=== PATIENT | female | born 1940 | race Caucasian/White ===

== ENCOUNTER 2020-07-22 20:23 | Inpatient (IN) | payer MEDICARE, OTHER, SELFPAY ==
--- NOTE | ~2020-07-22 | XR_ITS ---
EXAMINATION: XR ABDOMEN KUB CLINICAL INDICATION: Rule out abdominal obstruction. COMPARISON: 07/26/2020 KUB. TECHNIQUE: AP view of the abdomen. FINDINGS: There is a nonobstructive bowel gas pattern. Mild to moderate stool seen within the colon distally to the rectum. Mild multilevel degenerative changes are seen in the thoracolumbar spine. No abnormal calcifications are seen. Surgical clips overlie the right upper quadrant. XR/XR KUB IMPRESSION: 1. Nonobstructive bowel gas pattern. 2. Mild to moderate colonic stool burden appears mildly decreased.
--- NOTE | ~2020-07-22 | XR_ITS ---
EXAMINATION: XR ABDOMEN KUB CLINICAL INDICATION: Abdominal distention. COMPARISON: None TECHNIQUE: AP view of the abdomen. FINDINGS: Bowel gas pattern is nonobstructive. Moderate amount of stool throughout the colon. Surgical clips in the right upper quadrant. XR/XR KUB IMPRESSION: Moderate stool burden. No obstruction.
[2020-07-22 20:56] VITALS: BMI 56.6
[2020-07-22 23:14] LABS: Glucose, Whole Blood 261 mg/dL (60-115)
--- NOTE | 2020-07-22 23:32 | PC.NURSE ---
PT not given Humalog due to PT not eating. POC 261.
[2020-07-23] MEDS: Insulin Glargine,Hum.rec.anlog 100 UNIT/ML 10 ML VIAL 14 UNIT SUBCUT (00:11)
[2020-07-23] MEDS: Insulin Lispro 100 UNIT/ML 3 ML VIAL SUBCUT ×2 (00:21→17:02)
[2020-07-23] MEDS: clonazePAM 0.5 MG TABLET PO ×4 (00:22→23:23)
[2020-07-23] MEDS: oxyCODONE HCl Immed Release 15 MG TABLET PO ×5 (00:48→19:59)
--- NOTE | 2020-07-23 03:33 | PC.ADMIT ---
80 year old female, admitted to Unit for first time, from [facility] presenting with anxiety. Nurse to nurse done prior to PT arrival. Medication reconciliation done with [facility] pharmacy. Legal status conditional voluntary. PT oriented to staff and unit. PT on 15 minute checks, POC QID, VS BID. PT denies SI and HI. PT poor appetite, medication compliant, presenting as anxious and nervous. BS 261 coverage given as ordered.
[2020-07-23 09:07] VITALS: BP 175/79; PULSE 73
[2020-07-23] MEDS: atenoloL 50 MG TABLET PO (09:07)
[2020-07-23] MEDS: glipiZIDE 10 MG TABLET PO (09:13)
[2020-07-23 09:20] LABS: Glucose, Whole Blood 133 mg/dL (60-115)
[2020-07-23 09:37] VITALS: BP 175/79; PULSE 73; TEMP 36.3; O2SAT 97
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
[2020-07-23 16:51] LABS: Glucose, Whole Blood 205 mg/dL (60-115)
[2020-07-23 17:53] VITALS: BP 136/56; PULSE 64; RESP 12; TEMP 36.9; O2SAT 96
[2020-07-23] MEDS: glipiZIDE 5 MG TABLET PO (18:01)
[2020-07-23] MEDS: Mirtazapine 7.5 MG TABLET 3.75 MG PO (20:00)
[2020-07-23 20:57] LABS: Glucose, Whole Blood 101 mg/dL (60-115)
[2020-07-24] MEDS: glipiZIDE 10 MG TABLET PO (06:20)
[2020-07-24] MEDS: oxyCODONE HCl Immed Release 15 MG TABLET PO ×4 (06:28→20:11)
[2020-07-24 07:10] LABS: Glucose, Whole Blood 166 mg/dL (60-115)
[2020-07-24 08:37] VITALS: BP 156/68; PULSE 72
[2020-07-24] MEDS: atenoloL 50 MG TABLET PO (08:37)
[2020-07-24 09:19] VITALS: BP 156/68; PULSE 72; TEMP 36.4; O2SAT 96
[2020-07-24] MEDS: clonazePAM 0.5 MG TABLET PO ×3 (09:54→22:50)
[2020-07-24 11:38] LABS: Glucose, Whole Blood 196 mg/dL (60-115)
--- NOTE | 2020-07-24 14:37 | HO.PSYCHPN ---
Subjective Subjective Date of Service: 07/24/20 Reason For Visit: Depression and anxiety Interim History: Does endorse feeling anxious and depressed, but much less compared to upon admission. Discussed at length medications and hopeful that Remeron will be helpful. She did endorse having a headache nausea and increased appetite with just 1 dose. Emphasized continuing to perseverate with medication to have enough time to review effectiveness and/or any side effects on a consistent basis. She was agreeable to this. Also discussed at length her controlled substance medications. She reports not wanting to be on these, but that her body is dependent on them having been on benzodiazepine for over 40 years and understands that she may need to have them and not come off them completely. Also discussed non medication strategies to help manage anxiety she is looking forward to engaging with primary treatment team, groups and also aftercare planning Medication Compliance: Yes Review of Systems Review of Systems Complaining of constipation, otherwise unremarkable Mental Status Exam Mental Status Exam Narrative: In night clothing. Fair self-care. Pleasant. Depressed and anxious. Not agitated. Some helplessness. No SI or HI. No psychosis. Insight and judgment fair Diagnostics Vital Signs (24Hr): Vital Signs - 24 hr 07/23/20 17:53 07/24/20 08:37 07/24/20 09:19 Temperature 98.4 F 97.5 F Pulse Rate 64 72 72 Respiratory Rate 12 Blood Pressure 136/56 L 156/68 H 156/68 H Pulse Oximetry 96 96 Body Mass Index 56.6 Labs Labs: Laboratory Results - last 48 hr 07/22/20 07/23/20 07/23/20 23:09 09:02 16:44 POC Glucose 261 H 133 H 205 H 07/23/20 07/24/20 07/24/20 20:54 06:23 11:29 POC Glucose 101 166 H 196 H Medications Medications Current Medications Generic Name Dose Route Start Last Admin Trade Name Freq PRN Reason Stop Dose Admin Acetaminophen 650 mg 07/22/20 23:50 Acetaminophen 325 Mg Tablet PO Q6H PRN Headache/Pain Mild Scale (1-3) Al Hydroxide/Mg Hydroxide 30 ml 07/22/20 23:50 Magnesium Hydrox/Alum Hydrox 30 Ml Oral.Susp PO Q6H PRN Heartburn/Nausea Atenolol 50 mg 07/23/20 09:00 07/24/20 08:37 Atenolol 50 Mg Tablet PO 50 mg DAILY [facility] Administration Protocol Clonazepam 0.5 mg 07/23/20 14:43 07/24/20 09:54 Clonazepam 0.5 Mg Tablet PO 0.5 mg TID PRN Administration Anxiety Glipizide 10 mg 07/23/20 07:30 07/24/20 06:20 Glipizide 10 Mg Tablet PO 10 mg DAILY@0730 [facility] Administration Glipizide 5 mg 07/23/20 17:00 07/23/20 18:01 Glipizide 5 Mg Tablet PO 5 mg DAILY@1700 [facility] Administration Insulin Glargine 14 unit 07/23/20 21:00 07/23/20 22:03 Insulin Glargine,Hum.Rec.Anlog 100 Unit/Ml 10 Ml Vial SUBCUT Not Given BEDTIME [facility] Magnesium Hydroxide 30 ml 07/22/20 23:50 Milk Of Magnesia 30 Ml Oral.Susp PO DAILY PRN Constipation Mirtazapine 3.75 mg 07/23/20 21:00 07/23/20 20:00 Mirtazapine 7.5 Mg Tablet PO 3.75 mg BEDTIME [facility] Administration Non-Formulary Medication 8 mcg 07/23/20 09:00 Lubiprostone [Amitiza] PO BID [facility] Ondansetron HCl 4 mg 07/23/20 16:51 07/23/20 17:29 Ondansetron Odt 4 Mg Tab.Rapdis TRANSLINGU 4 mg Q12H PRN Administration Nausea Oxycodone HCl 15 mg 07/23/20 08:00 07/24/20 11:08 Oxycodone Hcl Immed Release 15 Mg Tablet PO 15 mg Q4H [facility] Administration Polyethylene Glycol 17 gm 07/24/20 10:31 Polyethylene Glycol 3350 17 Gm Powd.Pack PO DAILY PRN Constipation Trazodone HCl 50 mg 07/22/20 23:50 Trazodone Hcl 50 Mg Tablet PO BEDTIME PRN Insomnia Allergies Allergies Allergy/AdvReac Type Severity Reaction Status Date / Time Penicillins Allergy Mild RASH Unverified 10/29/19 17:20 Sulfa (Sulfonamide Allergy Unknown UNKNOWN Unverified 10/29/19 17:20 Antibiotics) Assessment & Plan Assessment & Plan (1) Major depress dis, severe: Status: Acute Code(s): F32.2 - Major depressive disorder, single episode, severe without psychotic features (2) Anxiety disorder: Status: Acute Code(s): F41.9 - Anxiety disorder, unspecified Assessment and Plan: 07/23/20: Discussed adding low-dose Remeron 3.75 mg at bedtime- very reluctant around same, but willing to try this on an inpatient setting. Also discussed potential for consideration of ECT in the future- Patient extremely fearful around same. Will use Klonopin 0.5 mg 3 times per day- consistent with [facility] and recent use. Discussed importance of working with primary team in the hospital setting, family and community treatment providers to ensure consistent treatment planning at side of the hospital after discharge. Ideally it would be great to get hold records from treatment within the [place] system, however this is extremely unlikely that these medication trials were well over 10 years ago as per patient 07/24/20: No significant changes and continue with treatment plan on 07/23/2020. Did enter hospitalist consult as H and P still needed as direct admission Greater than 50% of the session was spent on counseling and/or coordination of care Reason for contiued inpatient stay Substantial Risk for: inability to function and rapid decompensation
--- NOTE | 2020-07-24 15:14 | P.CONIM_ITS ---
History of Present Illness Data of Consult Service Date: 07/24/20 Primary Care Provider: Unknown Physician HPI Reason for consult: Diabetes 80-year-old female admitted to inpatient psychiatry for severe depression. Patient has history of diabetes is treated with long-acting insulin and glimepiride at home with good control. Also has hypertension treated with atenolol. Patient has no active medical complaints. She is noted to have bilateral lower extremity edema. She is being treated for venous insufficiency at [facility]. Review of Systems Cardiovascular: Cardiovascular: Reports no additional cardiovascular complaints Respiratory: Respiratory: Reports no additional respiratory complaints [facility] Medical History Diabetes mellitus HTN (hypertension) Family history: reviewed and not pertinent Surgical History (Updated 07/24/20 @ 15:15 by Arvin Prescott MD) History of cholecystectomy Shoulder joint replacement status Social History Household Members: Other Household Members Other:: son Housing: Apartment Do you presently have visiting nurse or other home services: No Patient Tobacco Use Status: Never used Tobacco e-Cigarette/Vaping Use: Never Used Patient Interested in Nicotine Replacement: No Patient Given Instructions on How to Stop Smoking: No Second Hand Smoke Exposure: No Use of substances other than those prescribed or required for medical reasons: No Currently Displaying Signs/Symptoms of Drug Intoxication Withdrawal: No Any prior treatment program specific to substance use: No Have you been hit, kicked, punched, or otherwise hurt by someone within the past year? If so, by whom?: No Do you feel safe in your current relationship?: Yes Is there a partner from a previous relationship who is making you feel unsafe now?: No Are you made to feel afraid or neglected: No Spiritual Healthcare Practices: Jainism Church Healthcare Practices: Jainism Cultural Healthcare Practices: NA Advance Directives: No Advance Directives Information Provided: No Advance Directives on File: No Do you have thoughts of harming others: None Do you have a plan to hurt others: No Plan Recently lost weight without trying: Yes How much weight loss: 2-13 pounds Eating poorly because of decreased appetite: Yes Nutrition screen score: 4 Nutrition Risks: Poor intake 0-25% >4 days Patient : No : No Poor oral hygiene: Yes Meds Allergies Allergy/AdvReac Type Severity Reaction Status Date / Time Penicillins Allergy Mild RASH Unverified 10/29/19 17:20 Sulfa (Sulfonamide Allergy Unknown UNKNOWN Unverified 10/29/19 17:20 Antibiotics) Active Medications: Current Medications Generic Name Dose Route Start Last Admin Trade Name Freq PRN Reason Stop Dose Admin Acetaminophen 650 mg 07/22/20 23:50 Acetaminophen 325 Mg Tablet PO Q6H PRN Headache/Pain Mild Scale (1-3) Al Hydroxide/Mg Hydroxide 30 ml 07/22/20 23:50 Magnesium Hydrox/Alum Hydrox 30 Ml Oral.Susp PO Q6H PRN Heartburn/Nausea Atenolol 50 mg 07/23/20 09:00 07/24/20 08:37 Atenolol 50 Mg Tablet PO 50 mg DAILY [facility] Administration Protocol Clonazepam 0.5 mg 07/23/20 14:43 07/24/20 09:54 Clonazepam 0.5 Mg Tablet PO 0.5 mg TID PRN Administration Anxiety Glipizide 10 mg 07/23/20 07:30 07/24/20 06:20 Glipizide 10 Mg Tablet PO 10 mg DAILY@0730 [facility] Administration Glipizide 5 mg 07/23/20 17:00 07/23/20 18:01 Glipizide 5 Mg Tablet PO 5 mg DAILY@1700 [facility] Administration Insulin Glargine 14 unit 07/23/20 21:00 07/23/20 22:03 Insulin Glargine,Hum.Rec.Anlog 100 Unit/Ml 10 Ml Vial SUBCUT Not Given BEDTIME [facility] Magnesium Hydroxide 30 ml 07/22/20 23:50 Milk Of Magnesia 30 Ml Oral.Susp PO DAILY PRN Constipation Mirtazapine 3.75 mg 07/23/20 21:00 07/23/20 20:00 Mirtazapine 7.5 Mg Tablet PO 3.75 mg BEDTIME [facility] Administration Non-Formulary Medication 8 mcg 07/23/20 09:00 Lubiprostone [Amitiza] PO BID [facility] Ondansetron HCl 4 mg 07/23/20 16:51 07/23/20 17:29 Ondansetron Odt 4 Mg Tab.Rapdis TRANSLINGU 4 mg Q12H PRN Administration Nausea Oxycodone HCl 15 mg 07/23/20 08:00 07/24/20 11:08 Oxycodone Hcl Immed Release 15 Mg Tablet PO 15 mg Q4H [facility] Administration Polyethylene Glycol 17 gm 07/24/20 10:31 Polyethylene Glycol 3350 17 Gm Powd.Pack PO DAILY PRN Constipation Trazodone HCl 50 mg 07/22/20 23:50 Trazodone Hcl 50 Mg Tablet PO BEDTIME PRN Insomnia Home Medications Medication Instructions Recorded Confirmed Last Taken Type atenolol 50 mg PO DAILY 07/22/20 07/22/20 Unknown History clonazepam 0.5 mg PO BID PRN 07/22/20 07/22/20 Unknown History glimepiride 2 mg PO DAILY 07/22/20 07/22/20 Unknown History glimepiride 4 mg PO DAILY 07/22/20 07/22/20 Unknown History insulin glargine [Lantus U-100 14 unit SUBCUT BEDTIME 07/22/20 07/22/20 07/21/20 23:16 History Insulin] lubiprostone [Amitiza] 8 mcg PO BID 07/22/20 07/22/20 Unknown History oxycodone 15 mg PO Q4H 07/22/20 07/22/20 Unknown History Physical Exam Vital Signs and Narrative: Vital Signs: Last Vital Signs Temp 97.5 F 07/24/20 09:19 Pulse 72 07/24/20 09:19 Resp 12 07/23/20 17:53 BP 156/68 H 07/24/20 09:19 Pulse Ox 96 07/24/20 09:19 Body Mass Index 56.6 General: AO X 3, no acute distress Resp: CTA bilateral CVS: S1,S2,RRR GI: soft, non tender, non distended Neuro: motor grossly intact Psych: appropriate affect ext. b/l edema Results Labs Labs: Laboratory Results - last 24 hr 07/23/20 07/23/20 07/24/20 16:44 20:54 06:23 POC Glucose 205 H 101 166 H 07/24/20 11:29 POC Glucose 196 H Assessment and Plan (1) Diabetes mellitus: Status: Acute 80F admitted for depression DM inuslin, glipizide monitor poc HTN atenolol venous insufficiency can use wraps depression no contraindication for ECT, should get preECT EKG.
[2020-07-24] MEDS: polyethylene glycoL 3350 17 GM POWD.PACK PO (16:03)
[2020-07-24 16:49] LABS: Glucose, Whole Blood 137 mg/dL (60-115)
[2020-07-24] MEDS: glipiZIDE 5 MG TABLET PO (17:02)
[2020-07-24 18:00] VITALS: BP 147/68; PULSE 62; TEMP 36.6; O2SAT 96
[2020-07-24] MEDS: Mirtazapine 7.5 MG TABLET 3.75 MG PO (20:09)
[2020-07-24 20:11] LABS: Glucose, Whole Blood 187 mg/dL (60-115)
[2020-07-24] MEDS: Insulin Glargine,Hum.rec.anlog 100 UNIT/ML 10 ML VIAL 14 UNIT SUBCUT (22:52)
[2020-07-25] MEDS: oxyCODONE HCl Immed Release 15 MG TABLET PO ×5 (01:22→21:51)
[2020-07-25 06:45] LABS: Glucose, Whole Blood 120 mg/dL (60-115)
[2020-07-25 08:43] VITALS: BP 146/68; BP 175/71; PULSE 59; PULSE 65; RESP 16; TEMP 37.2; O2SAT 95
[2020-07-25] MEDS: polyethylene glycoL 3350 17 GM POWD.PACK PO ×2 (08:47→21:11)
[2020-07-25] MEDS: clonazePAM 0.5 MG TABLET PO ×3 (08:47→21:51)
[2020-07-25 08:48] VITALS: BP 175/71; PULSE 65
[2020-07-25] MEDS: atenoloL 50 MG TABLET PO (08:48)
[2020-07-25] MEDS: glipiZIDE 10 MG TABLET PO (08:48)
[2020-07-25] MEDS: Acetaminophen 325 MG TABLET 650 MG PO ×2 (11:13→21:56)
[2020-07-25 11:41] LABS: Glucose, Whole Blood 144 mg/dL (60-115)
--- NOTE | 2020-07-25 13:23 | P.PNPSI_ITS ---
Subjective Subjective Date of Service: 07/25/20 Reason For Visit: Depression and anxiety Subjective Notes: Conditional Voluntary Interim History: The patient reported depression and anxiety and she was worried for several issues, such as possibility of weight gain with REmeron,, her need of benzodiazepines and the possibility of ECT. Since she lost 40 lb in the last year and she doesn't want to get obese again. Agreed to change to Cymbalta 20 mgpo bid. Medication Compliance: Yes Review of Systems Acute medical concerns: No Medical Review of Systems: unchanged Mental Status Exam Mental Status Exam Patient Appearance: Well Grooomed Patient Orientation: Person, Place and Time Level of Consciousness: Awake Patient Behavior: Appropriate Mood Description: Calm and Withdrawn Affect Description: Depressed Patient Cognition Impaired: No Ability to Follow Directions: Good Speech Pattern: Clear Memory Description: Intact Hallucinations: None Delusions: Not Present Thought Process: Linear Thought Content: positive for Goal Oriented Depressive Symptoms: Increased Anxiety Judgement: Fair Diagnostics Vital Signs (24Hr): Vital Signs - 24 hr 07/24/20 18:00 07/25/20 08:43 07/25/20 08:48 Temperature 98 F 98.9 F Pulse Rate 62 65 65 Respiratory Rate 16 Blood Pressure 147/68 H 175/71 H 175/71 H Pulse Oximetry 96 95 Body Mass Index 56.6 Labs Labs: Laboratory Results - last 48 hr 07/23/20 07/23/20 07/24/20 16:44 20:54 06:23 POC Glucose 205 H 101 166 H 07/24/20 07/24/20 07/24/20 11:29 16:34 20:07 POC Glucose 196 H 137 H 187 H 07/25/20 07/25/20 06:33 11:34 POC Glucose 120 H 144 H Medications Medications Current Medications Generic Name Dose Route Start Last Admin Trade Name Freq PRN Reason Stop Dose Admin Acetaminophen 650 mg 07/22/20 23:50 07/25/20 11:13 Acetaminophen 325 Mg Tablet PO 650 mg Q6H PRN Administration Headache/Pain Mild Scale (1-3) Al Hydroxide/Mg Hydroxide 30 ml 07/22/20 23:50 Magnesium Hydrox/Alum Hydrox 30 Ml Oral.Susp PO Q6H PRN Heartburn/Nausea Artificial Tears 2 drop 07/25/20 11:54 Artificial Tears 15 Ml Drops EYE-BOTH Q4H PRN Dry Eyes Atenolol 50 mg 07/23/20 09:00 07/25/20 08:48 Atenolol 50 Mg Tablet PO 50 mg DAILY [facility] Administration Protocol Clonazepam 0.5 mg 07/23/20 14:43 07/25/20 08:47 Clonazepam 0.5 Mg Tablet PO 0.5 mg TID PRN Administration Anxiety Glipizide 10 mg 07/23/20 07:30 07/25/20 08:48 Glipizide 10 Mg Tablet PO 10 mg DAILY@0730 [facility] Administration Glipizide 5 mg 07/23/20 17:00 07/24/20 17:02 Glipizide 5 Mg Tablet PO 5 mg DAILY@1700 [facility] Administration Insulin Glargine 14 unit 07/26/20 09:00 Insulin Glargine,Hum.Rec.Anlog 100 Unit/Ml 10 Ml Vial SUBCUT DAILY [facility] Magnesium Hydroxide 30 ml 07/22/20 23:50 Milk Of Magnesia 30 Ml Oral.Susp PO DAILY PRN Constipation Mirtazapine 3.75 mg 07/23/20 21:00 07/24/20 20:09 Mirtazapine 7.5 Mg Tablet PO 3.75 mg BEDTIME [facility] Administration Non-Formulary Medication 8 mcg 07/23/20 09:00 Lubiprostone [Amitiza] PO BID [facility] Ondansetron HCl 4 mg 07/23/20 16:51 07/23/20 17:29 Ondansetron Odt 4 Mg Tab.Rapdis TRANSLINGU 4 mg Q12H PRN Administration Nausea Oxycodone HCl 15 mg 07/23/20 08:00 07/25/20 13:20 Oxycodone Hcl Immed Release 15 Mg Tablet PO 15 mg Q4H [facility] Administration Polyethylene Glycol 17 gm 07/24/20 10:31 07/25/20 08:47 Polyethylene Glycol 3350 17 Gm Powd.Pack PO 17 gm DAILY PRN Administration Constipation Trazodone HCl 50 mg 07/22/20 23:50 Trazodone Hcl 50 Mg Tablet PO BEDTIME PRN Insomnia Allergies Allergies Allergy/AdvReac Type Severity Reaction Status Date / Time Penicillins Allergy Mild RASH Unverified 10/29/19 17:20 Sulfa (Sulfonamide Allergy Unknown UNKNOWN Unverified 10/29/19 17:20 Antibiotics) Assessment & Plan Assessment & Plan (1) Diabetes mellitus: Status: Acute Code(s): E11.9 - Type 2 diabetes mellitus without complications Assessment and Plan: 80F admitted for depression DM inuslin, glipizide monitor poc HTN atenolol venous insufficiency can use wraps depression no contraindication for ECT, should get preECT EKG. Change Effexor to Cymbalta. Add Senna and Colace Greater than 50% of the session was spent on counseling and/or coordination of care Reason for contiued inpatient stay Substantial Risk for: inability to function, rapid decompensation and med/psych decompensation
[2020-07-25 16:23] LABS: Urine Cytology See Pathology rpt
[2020-07-25] MEDS: glipiZIDE 5 MG TABLET PO (16:29)
[2020-07-25 20:57] LABS: Glucose, Whole Blood 198 mg/dL (60-115)
[2020-07-25 21:28] VITALS: BP 152/64; PULSE 64; RESP 20; TEMP 36.3; O2SAT 97
[2020-07-25] MEDS: Nystatin Cream 15 GM TUBE 1 APPL TOPICAL (21:58)
[2020-07-26] MEDS: oxyCODONE HCl Immed Release 15 MG TABLET PO ×4 (03:24→23:55)
[2020-07-26 06:00] VITALS: BP 163/70; PULSE 63; RESP 20; TEMP 36.3; O2SAT 96
[2020-07-26] MEDS: Acetaminophen 325 MG TABLET 650 MG PO ×2 (07:02→20:47)
[2020-07-26] MEDS: clonazePAM 0.5 MG TABLET PO ×3 (07:03→20:42)
[2020-07-26 09:03] VITALS: BP 144/66; PULSE 70; RESP 16; TEMP 36.1; O2SAT 97
[2020-07-26 09:05] VITALS: BP 144/66; PULSE 70
[2020-07-26] MEDS: atenoloL 50 MG TABLET PO (09:05)
[2020-07-26] MEDS: glipiZIDE 10 MG TABLET PO (09:06)
[2020-07-26] MEDS: Insulin Glargine,Hum.rec.anlog 100 UNIT/ML 10 ML VIAL 14 UNIT SUBCUT (09:07)
[2020-07-26] MEDS: polyethylene glycoL 3350 17 GM POWD.PACK PO (09:33)
[2020-07-26] MEDS: Nystatin Cream 15 GM TUBE 1 APPL TOPICAL ×2 (09:34→18:42)
--- NOTE | 2020-07-26 11:58 | P.PNPSI_ITS ---
Subjective Subjective Date of Service: 07/26/20 Reason For Visit: Depression and anxiety Interim History: The patient complained of constipation and still dysphoric, anxious with Remeron. Today, we changed to Cymbalta 20 mg po bid to target anxiety and dperession. Very worried about the change of medication. Medication Compliance: Yes Side effects from medications: No Attending Groups: Yes Mental Status Exam Mental Status Exam Patient Appearance: Well Grooomed Patient Orientation: Person, Place, Time and Situation Level of Consciousness: Awake and Appropriate Patient Behavior: Cooperative Mood Description: Calm Affect Description: Constricted Patient Cognition Impaired: No Ability to Follow Directions: Good Speech Pattern: Clear Memory Description: Intact Hallucinations: None Delusions: Not Present Thought Process: Distracted Thought Content: positive for Circumstantial Depressive Symptoms: Increased Anxiety Judgement: Fair Diagnostics Vital Signs (24Hr): Vital Signs - 24 hr 07/25/20 21:28 07/26/20 06:00 07/26/20 09:03 Temperature 97.4 F 97.4 F 97.0 F Pulse Rate 64 63 70 Respiratory Rate 20 20 16 Blood Pressure 152/64 H 163/70 H 144/66 H Pulse Oximetry 97 96 97 07/26/20 09:05 Temperature Pulse Rate 70 Respiratory Rate Blood Pressure 144/66 H Pulse Oximetry Body Mass Index 56.6 Labs Labs: Laboratory Results - last 48 hr 07/24/20 07/24/20 07/25/20 16:34 20:07 06:33 POC Glucose 137 H 187 H 120 H 07/25/20 07/25/20 11:34 20:39 POC Glucose 144 H 198 H Medications Medications Current Medications Generic Name Dose Route Start Last Admin Trade Name Matiq PRN Reason Stop Dose Admin Acetaminophen 650 mg 07/22/20 23:50 07/26/20 07:02 Acetaminophen 325 Mg Tablet PO 650 mg Q6H PRN Administration Headache/Pain Mild Scale (1-3) Al Hydroxide/Mg Hydroxide 30 ml 07/22/20 23:50 Magnesium Hydrox/Alum Hydrox 30 Ml Oral.Susp PO Q6H PRN Heartburn/Nausea Artificial Tears 2 drop 07/25/20 11:54 Artificial Tears 15 Ml Drops EYE-BOTH Q4H PRN Dry Eyes Atenolol 50 mg 07/23/20 09:00 07/26/20 09:05 Atenolol 50 Mg Tablet PO 50 mg DAILY PATEL Administration Protocol Clonazepam 0.5 mg 07/23/20 14:43 07/26/20 07:03 Clonazepam 0.5 Mg Tablet PO 0.5 mg TID PRN Administration Anxiety Duloxetine HCl 20 mg 07/26/20 21:00 Duloxetine Hcl 20 Mg Capsule.Dr PO BID PATEL Glipizide 10 mg 07/23/20 07:30 07/26/20 09:06 Glipizide 10 Mg Tablet PO 10 mg DAILY@0730 PATEL Administration Glipizide 5 mg 07/23/20 17:00 07/25/20 16:29 Glipizide 5 Mg Tablet PO 5 mg DAILY@1700 PATEL Administration Insulin Glargine 14 unit 07/26/20 09:00 07/26/20 09:07 Insulin Glargine,Hum.Rec.Anlog 100 Unit/Ml 10 Ml Vial SUBCUT 14 unit DAILY PATEL Administration Magnesium Hydroxide 30 ml 07/22/20 23:50 Milk Of Magnesia 30 Ml Oral.Susp PO DAILY PRN Constipation Non-Formulary Medication 8 mcg 07/23/20 09:00 Lubiprostone [Amitiza] PO BID PATEL Nystatin 1 appl 07/25/20 21:00 07/26/20 09:34 Nystatin Cream 15 Gm Tube TOPICAL 1 appl BID [facility] Administration Protocol Ondansetron HCl 4 mg 07/23/20 16:51 07/23/20 17:29 Ondansetron Odt 4 Mg Tab.Rapdis TRANSLINGU 4 mg Q12H PRN Administration Nausea Oxycodone HCl 15 mg 07/23/20 08:00 07/26/20 09:06 Oxycodone Hcl Immed Release 15 Mg Tablet PO 15 mg Q4H PATEL Administration Polyethylene Glycol 17 gm 07/25/20 20:48 07/26/20 09:33 Polyethylene Glycol 3350 17 Gm Powd.Pack PO 17 gm BID PRN Administration Constipation Sodium Biphosphate/Sodium Phosphate 133 ml 07/26/20 10:58 Sodium Phosphate,[place]-Dibasic 133 Ml Enema [place] ONCE PRN contipation Trazodone HCl 50 mg 07/22/20 23:50 Trazodone Hcl 50 Mg Tablet PO BEDTIME PRN Insomnia Allergies Allergies Allergy/AdvReac Type Severity Reaction Status Date / Time Penicillins Allergy Mild RASH Unverified 10/29/19 17:20 Sulfa (Sulfonamide Allergy Unknown UNKNOWN Unverified 10/29/19 17:20 Antibiotics) Assessment & Plan Assessment & Plan (1) Diabetes mellitus: Status: Acute Code(s): E11.9 - Type 2 diabetes mellitus without complications Assessment and Plan: 80F admitted for depression DM in[place], glipizide monitor poc HTN atenolol venous insufficiency can use wraps depression no contraindication for ECT, should get preECT EKG. Change Effexor to Cymbalta. Add Senna and Colace Greater than 50% of the session was spent on counseling and/or coordination of care Reason for contiued inpatient stay Substantial Risk for: inability to function, rapid decompensation and med/psych decompensation
[2020-07-26] MEDS: glipiZIDE 5 MG TABLET PO (15:47)
[2020-07-26] MEDS: Sodium Phosphate,Mono-Dibasic 133 ML ENEMA PR (17:25)
[2020-07-26 19:50] LABS: Glucose, Whole Blood 172 mg/dL (60-115)
[2020-07-26 20:38] LABS: Glucose, Whole Blood 170 mg/dL (60-115)
[2020-07-26] MEDS: DULoxetine HCl 20 MG CAPSULE.DR PO (20:41)
[2020-07-27] MEDS: clonazePAM 0.5 MG TABLET PO ×3 (02:30→23:05)
[2020-07-27] MEDS: Acetaminophen 325 MG TABLET 650 MG PO (02:39)
[2020-07-27 06:00] VITALS: BP 181/83; PULSE 75; RESP 18; O2SAT 96
[2020-07-27 06:31] LABS: Glucose, Whole Blood 89 mg/dL (60-115)
[2020-07-27] MEDS: oxyCODONE HCl Immed Release 15 MG TABLET PO ×3 (08:30→23:06)
[2020-07-27] MEDS: DULoxetine HCl 20 MG CAPSULE.DR PO ×2 (08:30→20:56)
[2020-07-27 08:31] VITALS: BP 181/83; PULSE 75
[2020-07-27] MEDS: atenoloL 50 MG TABLET PO (08:31)
[2020-07-27] MEDS: Insulin Glargine,Hum.rec.anlog 100 UNIT/ML 10 ML VIAL 14 UNIT SUBCUT (08:31)
[2020-07-27] MEDS: glipiZIDE 10 MG TABLET PO (08:31)
[2020-07-27] MEDS: Nystatin Cream 15 GM TUBE 1 APPL TOPICAL (08:32)
[2020-07-27] MEDS: polyethylene glycoL 3350 17 GM POWD.PACK PO (09:03)
--- NOTE | 2020-07-27 12:25 | P.PNPSI_ITS ---
Subjective Subjective Date of Service: 07/27/20 Reason For Visit: Depression and anxiety Interim History: The patient remains anxious and somatically preoccupied with Cymbalta's side effects. So far, no change on her mood. Mental Status Exam Mental Status Exam Patient Appearance: Well Grooomed Patient Orientation: Person, Place and Time Level of Consciousness: Appropriate Patient Behavior: Cooperative Mood Description: Constricted Affect Description: Calm Patient Cognition Impaired: No Ability to Follow Directions: Good Speech Pattern: Clear Hallucinations: None Delusions: Not Present Thought Content: positive for Intact Depressive Symptoms: Increased Anxiety Judgement: Fair Diagnostics Vital Signs (24Hr): Vital Signs - 24 hr 07/27/20 06:00 07/27/20 08:31 Pulse Rate 75 75 Respiratory Rate 18 Blood Pressure 181/83 H 181/83 H Pulse Oximetry 96 Body Mass Index 56.6 Labs Labs: Laboratory Results - last 48 hr 07/25/20 07/26/20 07/26/20 20:39 08:55 20:28 POC Glucose 198 H 172 H 170 H 07/27/20 06:26 POC Glucose 89 Imaging Radiology Impressions: ITS Impressions KUB X-Ray 07/26/20 20:15 IMPRESSION: Moderate stool burden. No obstruction. Medications Medications Current Medications Generic Name Dose Route Start Last Admin Trade Name Freq PRN Reason Stop Dose Admin Acetaminophen 650 mg 07/22/20 23:50 07/27/20 02:39 Acetaminophen 325 Mg Tablet PO 650 mg Q6H PRN Administration Headache/Pain Mild Scale (1-3) Al Hydroxide/Mg Hydroxide 30 ml 07/22/20 23:50 Magnesium Hydrox/Alum Hydrox 30 Ml Oral.Susp PO Q6H PRN Heartburn/Nausea Artificial Tears 2 drop 07/25/20 11:54 Artificial Tears 15 Ml Drops EYE-BOTH Q4H PRN Dry Eyes Atenolol 50 mg 07/23/20 09:00 07/27/20 08:31 Atenolol 50 Mg Tablet PO 50 mg DAILY PATEL Administration Protocol Clonazepam 0.5 mg 07/23/20 14:43 07/27/20 02:30 Clonazepam 0.5 Mg Tablet PO 0.5 mg TID PRN Administration Anxiety Duloxetine HCl 20 mg 07/26/20 21:00 07/27/20 08:30 Duloxetine Hcl 20 Mg Capsule.Dr PO 20 mg BID PATEL Administration Glipizide 10 mg 07/23/20 07:30 07/27/20 08:31 Glipizide 10 Mg Tablet PO 10 mg DAILY@0730 [facility] Administration Glipizide 5 mg 07/23/20 17:00 07/26/20 15:47 Glipizide 5 Mg Tablet PO 5 mg DAILY@1700 [facility] Administration Insulin Glargine 14 unit 07/26/20 09:00 07/27/20 08:31 Insulin Glargine,Hum.Rec.Anlog 100 Unit/Ml 10 Ml Vial SUBCUT 14 unit DAILY [facility] Administration Magnesium Hydroxide 30 ml 07/22/20 23:50 Milk Of Magnesia 30 Ml Oral.Susp PO DAILY PRN Constipation Non-Formulary Medication 8 mcg 07/23/20 09:00 Lubiprostone [Amitiza] PO BID [facility] Nystatin 1 appl 07/25/20 21:00 07/27/20 08:32 Nystatin Cream 15 Gm Tube TOPICAL 1 appl BID [facility] Administration Protocol Ondansetron HCl 4 mg 07/23/20 16:51 07/23/20 17:29 Ondansetron Odt 4 Mg Tab.Rapdis TRANSLINGU 4 mg Q12H PRN Administration Nausea Oxycodone HCl 15 mg 07/23/20 08:00 07/27/20 11:41 Oxycodone Hcl Immed Release 15 Mg Tablet PO 15 mg Q4H [facility] Administration Polyethylene Glycol 17 gm 07/25/20 20:48 07/27/20 09:03 Polyethylene Glycol 3350 17 Gm Powd.Pack PO 17 gm BID PRN Administration Constipation Sodium Biphosphate/Sodium Phosphate 133 ml 07/26/20 10:58 07/26/20 17:25 Sodium Phosphate,[place]-Dibasic 133 Ml Enema [place] 133 ml ONCE PRN Administration contipation Sodium Biphosphate/Sodium Phosphate 133 ml 07/26/20 18:00 Sodium Phosphate,[place]-Dibasic 133 Ml Enema [place] ONCE PRN Constipation Trazodone HCl 50 mg 07/22/20 23:50 Trazodone Hcl 50 Mg Tablet PO BEDTIME PRN Insomnia Allergies Allergies Allergy/AdvReac Type Severity Reaction Status Date / Time Penicillins Allergy Mild RASH Unverified 10/29/19 17:20 Sulfa (Sulfonamide Allergy Unknown UNKNOWN Unverified 10/29/19 17:20 Antibiotics) Assessment & Plan Assessment & Plan (1) Diabetes mellitus: Status: Acute Code(s): E11.9 - Type 2 diabetes mellitus without complications Assessment and Plan: 80F admitted for depression DM in[place], glipizide monitor poc HTN atenolol venous insufficiency can use wraps depression no contraindication for ECT, should get preECT EKG. Change Effexor to Cymbalta. Add Senna and Colace Greater than 50% of the session was spent on counseling and/or coordination of care Reason for contiued inpatient stay Substantial Risk for: inability to function, rapid decompensation and med/psych decompensation
[2020-07-27] MEDS: glipiZIDE 5 MG TABLET PO (16:47)
[2020-07-27 17:01] LABS: Glucose, Whole Blood 142 mg/dL (60-115)
[2020-07-27 21:35] LABS: Glucose, Whole Blood 205 mg/dL (60-115)
[2020-07-27 22:21] LABS: Glucose Urine UA 100 MG/DL (NEG); Leukocyte Esterase Urine 1+ (NEG); Nitrite Urine NEG (NEG); Specific Gravity - Urine >= 1.030 (1.005-1.025); Urine Blood TRACE (NEG); Urine Ketones NEG (NEG); Urine Protein TRACE MG/DL (NEG-TRACE)
[2020-07-27 22:24] LABS: Appearance Urine HAZY; Color Urine YELLOW
[2020-07-27 22:31] LABS: Bacteria Urine 2+ /LPF; Mucus Urine 2+ /LPF; Squamous Epithelial Cell Urine 2+ /LPF
[2020-07-28] VITALS (7 sets, daily range): BP systolic 135–145; BP diastolic 60–82; PULSE 62–74; RESP 16–18; TEMP 36.1–36.3; O2SAT 96–97; BMI 26.3
[2020-07-28 01:00] LABS: Glucose, Whole Blood 190 mg/dL (60-115)
[2020-07-28] MEDS: Acetaminophen 325 MG TABLET 650 MG PO (05:44)
[2020-07-28] MEDS: oxyCODONE HCl Immed Release 15 MG TABLET PO ×4 (05:45→22:04)
[2020-07-28] MEDS: glipiZIDE 10 MG TABLET PO (06:04)
[2020-07-28 06:05] LABS: Glucose, Whole Blood 120 mg/dL (60-115)
[2020-07-28] MEDS: DULoxetine HCl 20 MG CAPSULE.DR PO ×2 (08:33→22:05)
[2020-07-28] MEDS: Insulin Glargine,Hum.rec.anlog 100 UNIT/ML 10 ML VIAL 14 UNIT SUBCUT (08:34)
[2020-07-28] MEDS: atenoloL 50 MG TABLET PO (08:34)
[2020-07-28] MEDS: clonazePAM 0.5 MG TABLET PO ×2 (10:36→17:06)
[2020-07-28 12:44] LABS: Glucose, Whole Blood 110 mg/dL (60-115)
--- NOTE | 2020-07-28 13:58 | P.PNPSI_ITS ---
Subjective Subjective Date of Service: 07/29/20 Reason For Visit: Depression and anxiety Interim History: Preethi reports urinary frequency, no burning, minimal output when she goes to bathroom. Hx of bladder prolapsed. Urine culture shows no growth. Pt with several somatic complains that she reports have triggered her depression and increase feeling of being overwhelmed. She reports at times waking up feeling another day. But denies suicidal or homicidal ideation. She reports that she slept well. She rpeorts she has not been able to attend groups nor socialize with peers due to urinary urgency. Review of Systems Review of Systems Complaining of constipation, otherwise unremarkable Cardiovascular: Reports no additional cardiovascular complaints Respiratory: Reports no additional respiratory complaints Mental Status Exam Mental Status Exam Narrative: Appearance: casually groomed, fair hygiene, in NAD Behavior: calm, cooperative Psychomotor: no agitation or retardation noted Speech: clear, normal rate/rhythm/volume, spontaneous TP: linear TC: no signs of psychosis, somatic concerns Mood: okay Affect:somewhat blunted SI:denies HI:denies AH/VH:none Delusions:none Insight/judgment:fair x 2. Memory/cog: alert, oriented x 2. grossly intact to conversational testing. Diagnostics Vital Signs (24Hr): Vital Signs - 24 hr 07/28/20 00:45 07/28/20 05:40 07/28/20 06:45 Temperature 97.1 F Pulse Rate 66 Respiratory Rate 16 18 16 Blood Pressure 145/82 H Pulse Oximetry 96 07/28/20 06:47 07/28/20 08:34 Temperature Pulse Rate 74 Respiratory Rate 16 Blood Pressure 135/72 Pulse Oximetry Body Mass Index 26.3 Labs Labs: Laboratory Results - last 48 hr 07/26/20 07/26/20 07/27/20 08:55 20:28 06:26 POC Glucose 172 H 170 H 89 Urine Color Urine Appearance Urine pH Ur Specific [place] Urine Protein Urine Glucose (UA) Urine Ketones Urine Blood Urine Nitrite Ur Leukocyte Esterase Urine RBC Urine WBC Ur Squamous Epith Cells Urine Bacteria Urine Mucus 07/27/20 07/27/20 07/27/20 16:52 21:26 21:50 POC Glucose 142 H 205 H Urine Color YELLOW Urine Appearance HAZY Urine pH 6.0 Ur Specific [place] >= 1.030 H Urine Protein TRACE Urine Glucose (UA) 100 H Urine Ketones NEG Urine Blood TRACE Urine Nitrite NEG Ur Leukocyte Esterase 1+ H Urine RBC 1-4 Urine WBC 10-14 H Ur Squamous Epith Cells 2+ Urine Bacteria 2+ Urine Mucus 2+ 07/27/20 07/28/20 07/28/20 23:01 06:00 12:40 POC Glucose 190 H 120 H 110 Urine Color Urine Appearance Urine pH Ur Specific [place] Urine Protein Urine Glucose (UA) Urine Ketones Urine Blood Urine Nitrite Ur Leukocyte Esterase Urine RBC Urine WBC Ur Squamous Epith Cells Urine Bacteria Urine Mucus Imaging Radiology Impressions: ITS Impressions KUB X-Ray 07/26/20 20:15 IMPRESSION: Moderate stool burden. No obstruction. Medications Medications Current Medications Generic Name Dose Route Start Last Admin Trade Name Freq PRN Reason Stop Dose Admin Acetaminophen 650 mg 07/22/20 23:50 07/28/20 05:44 Acetaminophen 325 Mg Tablet PO 650 mg Q6H PRN Administration Headache/Pain Mild Scale (1-3) Al Hydroxide/Mg Hydroxide 30 ml 07/22/20 23:50 Magnesium Hydrox/Alum Hydrox 30 Ml Oral.Susp PO Q6H PRN Heartburn/Nausea Artificial Tears 2 drop 07/25/20 11:54 Artificial Tears 15 Ml Drops EYE-BOTH Q4H PRN Dry Eyes Atenolol 50 mg 07/23/20 09:00 07/28/20 08:34 Atenolol 50 Mg Tablet PO 50 mg DAILY PATEL Administration Protocol Clonazepam 0.5 mg 07/23/20 14:43 07/28/20 10:36 Clonazepam 0.5 Mg Tablet PO 0.5 mg TID PRN Administration Anxiety Docusate Sodium 100 mg 07/27/20 12:26 Docusate Sodium 100 Mg Capsule PO BID PRN contipation Duloxetine HCl 20 mg 07/26/20 21:00 07/28/20 08:33 Duloxetine Hcl 20 Mg Capsule.Dr PO 20 mg BID PATEL Administration Glipizide 10 mg 07/23/20 07:30 07/28/20 06:04 Glipizide 10 Mg Tablet PO 10 mg DAILY@0730 PATEL Administration Glipizide 5 mg 07/23/20 17:00 07/27/20 16:47 Glipizide 5 Mg Tablet PO 5 mg DAILY@1700 PATEL Administration Insulin Glargine 14 unit 07/26/20 09:00 07/28/20 08:34 Insulin Glargine,Hum.Rec.Anlog 100 Unit/Ml 10 Ml Vial SUBCUT 14 unit DAILY PATEL Administration Magnesium Hydroxide 30 ml 07/22/20 23:50 Milk Of Magnesia 30 Ml Oral.Susp PO DAILY PRN Constipation Melatonin 6 mg 07/27/20 15:22 Melatonin 3 Mg Tablet PO BEDTIME PRN Insomnia Non-Formulary Medication 8 mcg 07/23/20 09:00 Lubiprostone [Amitiza] PO BID [facility] Nystatin 1 appl 07/25/20 21:00 07/28/20 12:56 Nystatin Cream 15 Gm Tube TOPICAL Not Given BID [facility] Protocol Ondansetron HCl 4 mg 07/23/20 16:51 07/23/20 17:29 Ondansetron Odt 4 Mg Tab.Rapdis TRANSLINGU 4 mg Q12H PRN Administration Nausea Oxycodone HCl 15 mg 07/23/20 08:00 07/28/20 13:02 Oxycodone Hcl Immed Release 15 Mg Tablet PO 15 mg Q4H PATEL Administration Polyethylene Glycol 17 gm 07/25/20 20:48 07/27/20 09:03 Polyethylene Glycol 3350 17 Gm Powd.Pack PO 17 gm BID PRN Administration Constipation Sodium Biphosphate/Sodium Phosphate 133 ml 07/26/20 10:58 07/26/20 17:25 Sodium Phosphate,[place]-Dibasic 133 Ml Enema [place] 133 ml ONCE PRN Administration contipation Sodium Biphosphate/Sodium Phosphate 133 ml 07/26/20 18:00 Sodium Phosphate,[place]-Dibasic 133 Ml Enema [place] ONCE PRN Constipation Allergies Allergies Allergy/AdvReac Type Severity Reaction Status Date / Time Penicillins Allergy Mild RASH Unverified 10/29/19 17:20 Sulfa (Sulfonamide Allergy Unknown UNKNOWN Unverified 10/29/19 17:20 Antibiotics) Assessment & Plan Assessment & Plan (1) Diabetes mellitus: Status: Acute Code(s): E11.9 - Type 2 diabetes mellitus without complications (2) Major depress dis, severe: Status: Acute Code(s): F32.2 - Major depressive disorder, single episode, severe without psychotic features Assessment and Plan: 80F admitted for depression 1. continue current medications DM in[place], glipizide monitor poc HTN atenolol venous insufficiency can use wraps depression no contraindication for ECT, should get preECT EKG. Change Effexor to Cymbalta. Add Senna and Colace Greater than 50% of the session was spent on counseling and/or coordination of care Reason for contiued inpatient stay Substantial Risk for: harm to self
[2020-07-28 17:28] LABS: Glucose, Whole Blood 124 mg/dL (60-115)
[2020-07-28] MEDS: glipiZIDE 5 MG TABLET PO (17:35)
[2020-07-28] MEDS: levoFLOXacin 500 MG TABLET PO (17:36)
[2020-07-28 20:51] LABS: Glucose, Whole Blood 185 mg/dL (60-115)
[2020-07-29] MEDS: Acetaminophen 325 MG TABLET 650 MG PO (03:10)
[2020-07-29] MEDS: clonazePAM 0.5 MG TABLET PO ×4 (03:10→23:11)
[2020-07-29] MEDS: oxyCODONE HCl Immed Release 15 MG TABLET PO ×7 (03:11→23:11)
[2020-07-29 06:00] VITALS: BP 128/64; PULSE 55; RESP 16; TEMP 36.4; O2SAT 93
[2020-07-29] MEDS: DULoxetine HCl 20 MG CAPSULE.DR PO ×2 (08:35→23:11)
[2020-07-29] MEDS: atenoloL 50 MG TABLET PO (08:36)
[2020-07-29] MEDS: glipiZIDE 10 MG TABLET PO (08:36)
[2020-07-29] MEDS: Insulin Glargine,Hum.rec.anlog 100 UNIT/ML 10 ML VIAL 14 UNIT SUBCUT (08:38)
[2020-07-29 09:15] LABS: Glucose, Whole Blood 148 mg/dL (60-115)
[2020-07-29 11:45] LABS: Glucose, Whole Blood 86 mg/dL (60-115)
--- NOTE | 2020-07-29 12:48 | HO.PSYCHPN ---
Subjective Subjective Date of Service: 07/29/20 Reason For Visit: Depression and anxiety Subjective Notes: Conditional Voluntary Interim History: The patient has been somatically preoccupied, complaining of headaches with Cymbalta and anxiety. She has been using her opioids q4h daily and she was worried about her Klonopin to be 3 times a day, 4 hours apart. Also, she complained of anal leakage. We discussed possible changes on her medications, but she was reluctant to do any changes right now. Mental Status Exam Mental Status Exam Patient Appearance: Well Grooomed and Appropriate Patient Orientation: Person, Place, Time and Situation Level of Consciousness: Awake Patient Behavior: Appropriate Mood Description: Anxious Affect Description: Constricted Patient Cognition Impaired: No Ability to Follow Directions: Good Speech Pattern: Clear Memory Description: Intact Hallucinations: None Delusions: Not Present Thought Process: Goal Oriented Thought Content: positive for Circumstantial and positive for Perseveration Depressive Symptoms: Increased Anxiety and Difficulty Sleeping Judgement: Fair Diagnostics Vital Signs (24Hr): Vital Signs - 24 hr 07/28/20 18:00 07/28/20 21:02 07/29/20 06:00 Temperature 97 F 97.4 F 97.6 F Pulse Rate 62 62 55 Respiratory Rate 18 18 16 Blood Pressure 140/60 H 140/60 H 128/64 Pulse Oximetry 97 93 Body Mass Index 26.3 Labs Labs: Laboratory Results - last 48 hr 07/27/20 07/27/20 07/27/20 16:52 21:26 21:50 POC Glucose 142 H 205 H Urine Color YELLOW Urine Appearance HAZY Urine pH 6.0 Ur Specific [place] >= 1.030 H Urine Protein TRACE Urine Glucose (UA) 100 H Urine Ketones NEG Urine Blood TRACE Urine Nitrite NEG Ur Leukocyte Esterase 1+ H Urine RBC 1-4 Urine WBC 10-14 H Ur Squamous Epith Cells 2+ Urine Bacteria 2+ Urine Mucus 2+ 07/27/20 07/28/20 07/28/20 23:01 06:00 12:40 POC Glucose 190 H 120 H 110 Urine Color Urine Appearance Urine pH Ur Specific [place] Urine Protein Urine Glucose (UA) Urine Ketones Urine Blood Urine Nitrite Ur Leukocyte Esterase Urine RBC Urine WBC Ur Squamous Epith Cells Urine Bacteria Urine Mucus 07/28/20 07/28/20 07/29/20 17:21 20:39 09:06 POC Glucose 124 H 185 H 148 H Urine Color Urine Appearance Urine pH Ur Specific [place] Urine Protein Urine Glucose (UA) Urine Ketones Urine Blood Urine Nitrite Ur Leukocyte Esterase Urine RBC Urine WBC Ur Squamous Epith Cells Urine Bacteria Urine Mucus 07/29/20 11:36 POC Glucose 86 Urine Color Urine Appearance Urine pH Ur Specific [place] Urine Protein Urine Glucose (UA) Urine Ketones Urine Blood Urine Nitrite Ur Leukocyte Esterase Urine RBC Urine WBC Ur Squamous Epith Cells Urine Bacteria Urine Mucus Imaging Radiology Impressions: ITS Impressions KUB X-Ray 07/26/20 20:15 IMPRESSION: Moderate stool burden. No obstruction. Medications Medications Current Medications Generic Name Dose Route Start Last Admin Trade Name Freq PRN Reason Stop Dose Admin Acetaminophen 650 mg 07/22/20 23:50 07/29/20 03:10 Acetaminophen 325 Mg Tablet PO 650 mg Q6H PRN Administration Headache/Pain Mild Scale (1-3) Al Hydroxide/Mg Hydroxide 30 ml 07/22/20 23:50 Magnesium Hydrox/Alum Hydrox 30 Ml Oral.Susp PO Q6H PRN Heartburn/Nausea Artificial Tears 2 drop 07/25/20 11:54 Artificial Tears 15 Ml Drops EYE-BOTH Q4H PRN Dry Eyes Atenolol 50 mg 07/23/20 09:00 07/29/20 08:36 Atenolol 50 Mg Tablet PO 50 mg DAILY PATEL Administration Protocol Clonazepam 0.5 mg 07/23/20 14:43 07/29/20 03:10 Clonazepam 0.5 Mg Tablet PO 0.5 mg TID PRN Administration Anxiety Docusate Sodium 100 mg 07/27/20 12:26 Docusate Sodium 100 Mg Capsule PO BID PRN contipation Duloxetine HCl 20 mg 07/26/20 21:00 07/29/20 08:35 Duloxetine Hcl 20 Mg Capsule.Dr PO 20 mg BID PATEL Administration Glipizide 10 mg 07/23/20 07:30 07/29/20 08:36 Glipizide 10 Mg Tablet PO 10 mg DAILY@0730 PATEL Administration Glipizide 5 mg 07/23/20 17:00 07/28/20 17:35 Glipizide 5 Mg Tablet PO 5 mg DAILY@1700 PATEL Administration Insulin Glargine 14 unit 07/26/20 09:00 07/29/20 08:38 Insulin Glargine,Hum.Rec.Anlog 100 Unit/Ml 10 Ml Vial SUBCUT 14 unit DAILY PATEL Administration Levofloxacin 500 mg 07/28/20 17:00 07/28/20 17:36 Levofloxacin 500 Mg Tablet PO 08/02/20 16:59 500 mg Q24H [facility] Administration Magnesium Hydroxide 30 ml 07/22/20 23:50 Milk Of Magnesia 30 Ml Oral.Susp PO DAILY PRN Constipation Melatonin 6 mg 07/27/20 15:22 Melatonin 3 Mg Tablet PO BEDTIME PRN Insomnia Non-Formulary Medication 8 mcg 07/23/20 09:00 Lubiprostone [Amitiza] PO BID [facility] Nystatin 1 appl 07/25/20 21:00 07/29/20 10:57 Nystatin Cream 15 Gm Tube TOPICAL Not Given BID [facility] Protocol Ondansetron HCl 4 mg 07/23/20 16:51 07/23/20 17:29 Ondansetron Odt 4 Mg Tab.Rapdis TRANSLINGU 4 mg Q12H PRN Administration Nausea Oxycodone HCl 15 mg 07/23/20 08:00 07/29/20 08:38 Oxycodone Hcl Immed Release 15 Mg Tablet PO 15 mg Q4H PATEL Administration Polyethylene Glycol 17 gm 07/25/20 20:48 07/27/20 09:03 Polyethylene Glycol 3350 17 Gm Powd.Pack PO 17 gm BID PRN Administration Constipation Sodium Biphosphate/Sodium Phosphate 133 ml 07/26/20 10:58 07/26/20 17:25 Sodium Phosphate,[place]-Dibasic 133 Ml Enema [place] 133 ml ONCE PRN Administration contipation Sodium Biphosphate/Sodium Phosphate 133 ml 07/26/20 18:00 Sodium Phosphate,[place]-Dibasic 133 Ml Enema [place] ONCE PRN Constipation Allergies Allergies Allergy/AdvReac Type Severity Reaction Status Date / Time Penicillins Allergy Mild RASH Unverified 10/29/19 17:20 Sulfa (Sulfonamide Allergy Unknown UNKNOWN Unverified 10/29/19 17:20 Antibiotics) Assessment & Plan Assessment & Plan (1) Diabetes mellitus: Status: Acute Code(s): E11.9 - Type 2 diabetes mellitus without complications (2) Major depress dis, severe: Status: Acute Code(s): F32.2 - Major depressive disorder, single episode, severe without psychotic features Assessment and Plan: 80F admitted for depression 1. continue current medications DM in[place], glipizide monitor poc HTN atenolol venous insufficiency can use wraps depression no contraindication for ECT, should get preECT EKG. Change Effexor to Cymbalta. Add Senna and Colace Greater than 50% of the session was spent on counseling and/or coordination of care Reason for contiued inpatient stay Substantial Risk for: inability to function, rapid decompensation and med/psych decompensation
[2020-07-29 16:55] LABS: Glucose, Whole Blood 176 mg/dL (60-115)
--- NOTE | 2020-07-29 17:26 | PM.UROCN ---
History of Present Illness Consult details Consult date: 07/28/20 Narrative: 80-year-old female persistent leukocytes in her urine consistent with question of UTI in a diabetic would suggest UTI treatment antibiotic prescribed PMFSH Past Medical History Medical History (Updated 07/28/20 @ 16:54 by Hugo Dickerson MD) Diabetes mellitus HTN (hypertension) Family History Family history: reviewed and not pertinent Surgical History Surgical History (Updated 07/24/20 @ 15:15 by Arvin Prescott MD) History of cholecystectomy Shoulder joint replacement status Social History Social History Household Members: Other Household Members Other:: son Housing: Apartment Do you presently have visiting nurse or other home services: No Patient Tobacco Use Status: Never used Tobacco e-Cigarette/Vaping Use: Never Used Patient Interested in Nicotine Replacement: No Patient Given Instructions on How to Stop Smoking: No Second Hand Smoke Exposure: No Use of substances other than those prescribed or required for medical reasons: No Currently Displaying Signs/Symptoms of Drug Intoxication Withdrawal: No Any prior treatment program specific to substance use: No Have you been hit, kicked, punched, or otherwise hurt by someone within the past year? If so, by whom?: No Do you feel safe in your current relationship?: Yes Is there a partner from a previous relationship who is making you feel unsafe now?: No Are you made to feel afraid or neglected: No Spiritual Healthcare Practices: Mosque [employer] Healthcare Practices: Mosque Cultural Healthcare Practices: NA Advance Directives: No Advance Directives Information Provided: No Advance Directives on File: No Do you have thoughts of harming others: None Do you have a plan to hurt others: No Plan Recently lost weight without trying: Yes How much weight loss: 2-13 pounds Eating poorly because of decreased appetite: Yes Nutrition screen score: 4 Nutrition Risks: Poor intake 0-25% >4 days Patient : No : No Poor oral hygiene: Yes service: Yes Sexual orientation: Straight/Heterosexual Meds Allergies Allergy/AdvReac Type Severity Reaction Status Date / Time Penicillins Allergy Mild RASH Unverified 10/29/19 17:20 Sulfa (Sulfonamide Allergy Unknown UNKNOWN Unverified 10/29/19 17:20 Antibiotics) Active Medications: Current Medications Generic Name Dose Route Start Last Admin Trade Name Freq PRN Reason Stop Dose Admin Acetaminophen 650 mg 07/22/20 23:50 07/29/20 03:10 Acetaminophen 325 Mg Tablet PO 650 mg Q6H PRN Administration Headache/Pain Mild Scale (1-3) Al Hydroxide/Mg Hydroxide 30 ml 07/22/20 23:50 Magnesium Hydrox/Alum Hydrox 30 Ml Oral.Susp PO Q6H PRN Heartburn/Nausea Artificial Tears 2 drop 07/25/20 11:54 Artificial Tears 15 Ml Drops EYE-BOTH Q4H PRN Dry Eyes Atenolol 50 mg 07/23/20 09:00 07/29/20 08:36 Atenolol 50 Mg Tablet PO 50 mg DAILY PATEL Administration Protocol Clonazepam 0.5 mg 07/23/20 14:43 07/29/20 14:19 Clonazepam 0.5 Mg Tablet PO 0.5 mg TID PRN Administration Anxiety Docusate Sodium 100 mg 07/27/20 12:26 Docusate Sodium 100 Mg Capsule PO BID PRN contipation Duloxetine HCl 20 mg 07/26/20 21:00 07/29/20 08:35 Duloxetine Hcl 20 Mg Capsule.Dr PO 20 mg BID PATEL Administration Glipizide 10 mg 07/23/20 07:30 07/29/20 08:36 Glipizide 10 Mg Tablet PO 10 mg DAILY@0730 PATEL Administration Glipizide 5 mg 07/23/20 17:00 07/28/20 17:35 Glipizide 5 Mg Tablet PO 5 mg DAILY@1700 PATEL Administration Insulin Glargine 14 unit 07/26/20 09:00 07/29/20 08:38 Insulin Glargine,Hum.Rec.Anlog 100 Unit/Ml 10 Ml Vial SUBCUT 14 unit DAILY PATEL Administration Levofloxacin 500 mg 07/28/20 17:00 07/28/20 17:36 Levofloxacin 500 Mg Tablet PO 08/02/20 16:59 500 mg Q24H PATEL Administration Magnesium Hydroxide 30 ml 07/22/20 23:50 Milk Of Magnesia 30 Ml Oral.Susp PO DAILY PRN Constipation Melatonin 6 mg 07/27/20 15:22 Melatonin 3 Mg Tablet PO BEDTIME PRN Insomnia Non-Formulary Medication 8 mcg 07/23/20 09:00 Lubiprostone [Amitiza] PO BID [facility] Nystatin 1 appl 07/25/20 21:00 07/29/20 10:57 Nystatin Cream 15 Gm Tube TOPICAL Not Given BID [facility] Protocol Ondansetron HCl 4 mg 07/23/20 16:51 07/23/20 17:29 Ondansetron Odt 4 Mg Tab.Rapdis TRANSLINGU 4 mg Q12H PRN Administration Nausea Oxycodone HCl 15 mg 07/23/20 08:00 07/29/20 14:19 Oxycodone Hcl Immed Release 15 Mg Tablet PO 15 mg Q4H PATEL Administration Polyethylene Glycol 17 gm 07/25/20 20:48 07/27/20 09:03 Polyethylene Glycol 3350 17 Gm Powd.Pack PO 17 gm BID PRN Administration Constipation Sodium Biphosphate/Sodium Phosphate 133 ml 07/26/20 10:58 07/26/20 17:25 Sodium Phosphate,[place]-Dibasic 133 Ml Enema [place] 133 ml ONCE PRN Administration contipation Sodium Biphosphate/Sodium Phosphate 133 ml 07/26/20 18:00 Sodium Phosphate,[place]-Dibasic 133 Ml Enema [place] ONCE PRN Constipation Home Medications Medication Instructions Recorded Confirmed Last Taken Type atenolol 50 mg PO DAILY 07/22/20 07/22/20 Unknown History clonazepam 0.5 mg PO BID PRN 07/22/20 07/22/20 Unknown History glimepiride 2 mg PO DAILY 07/22/20 07/22/20 Unknown History glimepiride 4 mg PO DAILY 07/22/20 07/22/20 Unknown History insulin glargine [Lantus U-100 14 unit SUBCUT BEDTIME 07/22/20 07/22/20 07/21/20 23:16 History Insulin] lubiprostone [Amitiza] 8 mcg PO BID 07/22/20 07/22/20 Unknown History oxycodone 15 mg PO Q4H 07/22/20 07/22/20 Unknown History Physical Exam Vital Signs: Vital Signs: Last Vital Signs Temp 97.6 F 07/29/20 06:00 Pulse 55 07/29/20 06:00 Resp 16 07/29/20 06:00 BP 128/64 07/29/20 06:00 Pulse Ox 93 07/29/20 06:00 Body Mass Index 26.3 Const: General: cooperative, healthy appearing, comfortable and no acute distress Nutritional Appearance: average body habitus Orientation/consciousness: oriented to person, oriented to place and oriented to time Eyes: General: appearance normal, both eyes and all related structures Chest: Chest palpation & inspection: normal inspection of the chest Resp: Effort & Inspection: normal respiratory effort Cardio: Rate: regular rate GI: Inspection: Yes normal to inspection Skin: Hair: normal Neuro: General: oriented to person, oriented to place and oriented to time Extrem: General: Yes normal to inspection Results Labs Labs: Abnormal lab results 07/28/20 07/28/20 07/29/20 Range/Units 17:21 20:39 09:06 POC Glucose 124 H 185 H 148 H (60-115) mg/dL 07/29/20 Range/Units 16:34 POC Glucose 176 H (60-115) mg/dL Urine 07/27/20 Range/Units 21:50 Urine Color YELLOW Urine Appearance HAZY Urine pH 6.0 (5.0-8.0) Ur Specific [place] >= 1.030 H (1.005-1.025) Urine Protein TRACE (NEG-TRACE) MG/DL Urine Glucose (UA) 100 H (NEG) MG/DL All other labs normal. Assessment and Plan (1) Complicated urinary tract infection: Status: Acute (2) Diabetes mellitus: Status: Acute urinary tract infection treatment Procedures Date of Service Date of Service: 07/28/20
[2020-07-29] MEDS: glipiZIDE 5 MG TABLET PO (17:46)
[2020-07-29] MEDS: levoFLOXacin 500 MG TABLET PO (17:46)
[2020-07-29 18:00] VITALS: BP 185/76; PULSE 72; TEMP 36.7; O2SAT 97
--- NOTE | 2020-07-29 22:11 | PC.NURSE ---
PT was complaining about a possible pressure ulcer in the coccyx region. This nurse assessed the area and found there to be a stage 2 pressure ulcer just superficial to alice prominence in the coccyx region. Skin appeared to have partial thickness loss, shallow open ulcer with pink/red wound bed. This nurse initiated pressure wound protocols.
[2020-07-29 23:27] LABS: Glucose, Whole Blood 113 mg/dL (60-115)
--- NOTE | 2020-07-29 23:38 | PC.NURSE ---
PT signed consent for photographic impaired skin documentation. Triad and moisture barrier cream applied to affected area. PT taught about repositioning in bed.
[2020-07-30] MEDS: Acetaminophen 325 MG TABLET 650 MG PO ×3 (03:02→13:58)
--- NOTE | 2020-07-30 03:31 | PC.NURSE ---
PT is complaining of frequent and uncontrolled episodes of fecal incontinence. PT woke up in the middle of the night to find loose moist stool inside of her underwear. PT then got out of and tried to clean herself up. Concerns of stool inside her prolapsed bladder are causing a great deal of stress and anxiety for the PT because she is already being treated for a UTI.
[2020-07-30 06:00] VITALS: BP 149/68; PULSE 65; RESP 16; TEMP 36.7; O2SAT 94
[2020-07-30 06:33] LABS: Glucose, Whole Blood 105 mg/dL (60-115)
[2020-07-30 08:45] VITALS: BP 149/78; PULSE 64; RESP 16; TEMP 37.1; O2SAT 96
[2020-07-30] MEDS: Insulin Glargine,Hum.rec.anlog 100 UNIT/ML 10 ML VIAL 14 UNIT SUBCUT (08:50)
[2020-07-30 08:54] VITALS: BP 149/78; PULSE 65
[2020-07-30] MEDS: atenoloL 50 MG TABLET PO (08:54)
[2020-07-30] MEDS: clonazePAM 0.5 MG TABLET PO ×3 (08:54→21:57)
[2020-07-30] MEDS: DULoxetine HCl 20 MG CAPSULE.DR PO (08:54)
[2020-07-30] MEDS: glipiZIDE 10 MG TABLET PO (08:55)
--- NOTE | 2020-07-30 10:29 | P.PNPSI_ITS ---
Subjective Subjective Date of Service: 07/30/20 Reason For Visit: Depression and anxiety Subjective Notes: Conditional Voluntary Interim History: Patient anxious depressed ruminating preoccupied with bowel functioning infection and it interaction with her bladder prolapse able to give extensive history regarding Mental Status Exam Mental Status Exam Patient Appearance: Well Grooomed and Appropriate Patient Orientation: Person, Place, Time and Situation Level of Consciousness: Awake Patient Behavior: Appropriate Mood Description: Anxious Affect Description: Constricted Patient Cognition Impaired: No Ability to Follow Directions: Good Speech Pattern: Clear Memory Description: Intact Hallucinations: None Delusions: Not Present Thought Process: Goal Oriented Thought Content: positive for Circumstantial and positive for Perseveration Depressive Symptoms: Increased Anxiety and Difficulty Sleeping Judgement: Fair Diagnostics Vital Signs (24Hr): Vital Signs - 24 hr 07/29/20 18:00 07/30/20 06:00 07/30/20 08:45 Temperature 98.0 F 98.1 F 98.7 F Pulse Rate 72 65 64 Respiratory Rate 16 16 Blood Pressure 185/76 H 149/68 H 149/78 H Pulse Oximetry 97 94 96 07/30/20 08:54 Temperature Pulse Rate 65 Respiratory Rate Blood Pressure 149/78 H Pulse Oximetry Body Mass Index 26.3 Labs Labs: Laboratory Results - last 48 hr 07/28/20 07/28/20 07/28/20 12:40 17:21 20:39 POC Glucose 110 124 H 185 H 07/29/20 07/29/20 07/29/20 09:06 11:36 16:34 POC Glucose 148 H 86 176 H 07/29/20 07/30/20 23:18 06:29 POC Glucose 113 105 Imaging Radiology Impressions: ITS Impressions KUB X-Ray 07/26/20 20:15 IMPRESSION: Moderate stool burden. No obstruction. Medications Medications Current Medications Generic Name Dose Route Start Last Admin Trade Name Freq PRN Reason Stop Dose Admin Acetaminophen 650 mg 07/22/20 23:50 07/30/20 08:54 Acetaminophen 325 Mg Tablet PO 650 mg Q6H PRN Administration Headache/Pain Mild Scale (1-3) Al Hydroxide/Mg Hydroxide 30 ml 07/22/20 23:50 Magnesium Hydrox/Alum Hydrox 30 Ml Oral.Susp PO Q6H PRN Heartburn/Nausea Artificial Tears 2 drop 07/25/20 11:54 Artificial Tears 15 Ml Drops EYE-BOTH Q4H PRN Dry Eyes Atenolol 50 mg 07/23/20 09:00 07/30/20 08:54 Atenolol 50 Mg Tablet PO 50 mg DAILY PATEL Administration Protocol Clonazepam 0.5 mg 07/23/20 14:43 07/30/20 08:54 Clonazepam 0.5 Mg Tablet PO 0.5 mg TID PRN Administration Anxiety Docusate Sodium 100 mg 07/27/20 12:26 Docusate Sodium 100 Mg Capsule PO BID PRN contipation Duloxetine HCl 20 mg 07/26/20 21:00 07/30/20 08:54 Duloxetine Hcl 20 Mg Capsule.Dr PO 20 mg BID PATEL Administration Glipizide 10 mg 07/23/20 07:30 07/30/20 08:55 Glipizide 10 Mg Tablet PO 10 mg DAILY@0730 COUNTS INCLUDE 234 BEDS AT THE [facility] Administration Glipizide 5 mg 07/23/20 17:00 07/29/20 17:46 Glipizide 5 Mg Tablet PO 5 mg DAILY@1700 COUNTS INCLUDE 234 BEDS AT THE [facility] Administration Insulin Glargine 14 unit 07/26/20 09:00 07/30/20 08:50 Insulin Glargine,Hum.Rec.Anlog 100 Unit/Ml 10 Ml Vial SUBCUT 14 unit DAILY COUNTS INCLUDE 234 BEDS AT THE [facility] Administration Levofloxacin 500 mg 07/28/20 17:00 07/29/20 17:46 Levofloxacin 500 Mg Tablet PO 08/02/20 16:59 500 mg Q24H COUNTS INCLUDE 234 BEDS AT THE [facility] Administration Magnesium Hydroxide 30 ml 07/22/20 23:50 Milk Of Magnesia 30 Ml Oral.Susp PO DAILY PRN Constipation Melatonin 6 mg 07/27/20 15:22 Melatonin 3 Mg Tablet PO BEDTIME PRN Insomnia Non-Formulary Medication 8 mcg 07/23/20 09:00 Lubiprostone [Amitiza] PO BID COUNTS INCLUDE 234 BEDS AT THE [facility] Nystatin 1 appl 07/25/20 21:00 07/29/20 21:39 Nystatin Cream 15 Gm Tube TOPICAL Not Given BID COUNTS INCLUDE 234 BEDS AT THE [facility] Protocol Ondansetron HCl 4 mg 07/23/20 16:51 07/23/20 17:29 Ondansetron Odt 4 Mg Tab.Rapdis TRANSLINGU 4 mg Q12H PRN Administration Nausea Oxycodone HCl 15 mg 07/23/20 08:00 07/30/20 05:16 Oxycodone Hcl Immed Release 15 Mg Tablet PO Not Given Q4H COUNTS INCLUDE 234 BEDS AT THE [facility] Polyethylene Glycol 17 gm 06/14/21 20:48 07/27/20 09:03 Polyethylene Glycol 3350 17 Gm Powd.Pack PO 17 gm BID PRN Administration Constipation Sodium Biphosphate/Sodium Phosphate 133 ml 07/26/20 10:58 07/26/20 17:25 Sodium Phosphate,[place]-Dibasic 133 Ml Enema [place] 133 ml ONCE PRN Administration contipation Sodium Biphosphate/Sodium Phosphate 133 ml 07/26/20 18:00 Sodium Phosphate,[place]-Dibasic 133 Ml Enema [place] ONCE PRN Constipation Allergies Allergies Allergy/AdvReac Type Severity Reaction Status Date / Time Penicillins Allergy Mild RASH Unverified 10/29/19 17:20 Sulfa (Sulfonamide Allergy Unknown UNKNOWN Unverified 10/29/19 17:20 Antibiotics) Assessment & Plan Assessment & Plan (1) Complicated urinary tract infection: Status: Acute Code(s): N39.0 - Urinary tract infection, site not specified (2) Diabetes mellitus: Status: Acute Code(s): E11.9 - Type 2 diabetes mellitus without complications (3) Major depressive disorder, recurrent severe without psychotic features: Status: Acute Code(s): F33.2 - Major depressive disorder, recurrent severe without psychotic features Assessment and Plan: GI consult for bowel management continue Cymbalta Greater than 50% of the session was spent on counseling and/or coordination of care Reason for contiued inpatient stay Substantial Risk for: inability to function and med/psych decompensation
[2020-07-30] MEDS: Nystatin Cream 15 GM TUBE 1 APPL TOPICAL ×2 (10:51→22:16)
[2020-07-30 11:40] LABS: Glucose, Whole Blood 85 mg/dL (60-115)
[2020-07-30] MEDS: oxyCODONE HCl Immed Release 15 MG TABLET PO ×2 (13:24→21:57)
[2020-07-30 16:15] LABS: Glucose, Whole Blood 279 mg/dL (60-115)
[2020-07-30] MEDS: levoFLOXacin 500 MG TABLET PO (16:55)
[2020-07-30] MEDS: glipiZIDE 5 MG TABLET PO (16:55)
[2020-07-30 18:44] VITALS: BP 145/63; PULSE 66; RESP 16; TEMP 36.6; O2SAT 96
[2020-07-30 22:12] LABS: Glucose, Whole Blood 129 mg/dL (60-115)
[2020-07-31] MEDS: oxyCODONE HCl Immed Release 15 MG TABLET PO ×4 (01:05→22:00)
[2020-07-31] MEDS: Acetaminophen 325 MG TABLET 650 MG PO ×3 (01:06→17:01)
[2020-07-31] MEDS: clonazePAM 0.5 MG TABLET PO ×3 (05:57→22:01)
--- NOTE | 2020-07-31 05:57 | PC.NURSE ---
PT woke up to find that she had been incontinent of stool in her bed while sleeping. PT complaining of severe anxiety at this time due to the of frequency of incontinent episodes. This nurse offered the PT her PRN Klonopin to help with anxiety.
[2020-07-31 06:00] VITALS: BP 168/69; PULSE 69; RESP 14; TEMP 36.5; O2SAT 95
--- NOTE | 2020-07-31 06:01 | PC.NURSE ---
PT was cleaned thoroughly after incontinent episode and combination of Triad cream and moisture barrier cream was reapplied to the area where the PT has a stage 2 pressure ulcer.
[2020-07-31 07:56] LABS: Glucose, Whole Blood 115 mg/dL (60-115)
[2020-07-31] MEDS: glipiZIDE 10 MG TABLET PO (09:04)
[2020-07-31] MEDS: Insulin Glargine,Hum.rec.anlog 100 UNIT/ML 10 ML VIAL 14 UNIT SUBCUT (09:04)
[2020-07-31 09:09] VITALS: BP 148/65; PULSE 70
[2020-07-31] MEDS: atenoloL 50 MG TABLET PO (09:09)
[2020-07-31] MEDS: DULoxetine HCl 20 MG CAPSULE.DR PO ×2 (09:14→22:01)
[2020-07-31] MEDS: Nystatin Cream 15 GM TUBE 1 APPL TOPICAL (11:03)
[2020-07-31 11:54] LABS: Glucose, Whole Blood 159 mg/dL (60-115)
[2020-07-31] MEDS: levoFLOXacin 500 MG TABLET PO (16:46)
[2020-07-31] MEDS: glipiZIDE 5 MG TABLET PO (16:46)
[2020-07-31 16:47] LABS: Glucose, Whole Blood 151 mg/dL (60-115)
[2020-07-31 18:00] VITALS: BP 125/60; PULSE 81; TEMP 36.6; O2SAT 97
[2020-07-31 22:18] LABS: Glucose, Whole Blood 151 mg/dL (60-115)
--- NOTE | 2020-07-31 23:15 | HO.PSYCHPN ---
Subjective Subjective Date of Service: 07/31/20 Reason For Visit: Depression and anxiety Subjective Notes: Conditional Voluntary Interim History: The patient is anxious ruminating difficulty with fecal incontinence is anxiety rumination GI consult was not yet completed Cymbalta changed to just bedtime felt that Cymbalta was too sedating preoccupied regarding side effects some degree of hopelessness helplessness despair Medication Compliance: Intermittent Side effects from medications: Yes Mental Status Exam Mental Status Exam Patient Appearance: Appropriate Patient Orientation: Person, Place, Time and Situation Level of Consciousness: Awake Patient Behavior: Appropriate Mood Description: Depressed, Anxious and Apprehensive Affect Description: Constricted, Depressed and Anxious Patient Cognition Impaired: No Ability to Follow Directions: Good Speech Pattern: Clear Memory Description: Intact Hallucinations: None Delusions: Not Present Thought Process: Goal Oriented Thought Content: positive for Circumstantial and positive for Perseveration Depressive Symptoms: Increased Anxiety and Difficulty Sleeping Judgement: Fair Diagnostics Vital Signs (24Hr): Vital Signs - 24 hr 07/31/20 06:00 07/31/20 09:09 07/31/20 18:00 Temperature 97.7 F 98 F Pulse Rate 69 70 81 Respiratory Rate 14 Blood Pressure 168/69 H 148/65 H 125/60 Pulse Oximetry 95 97 Body Mass Index 26.3 Labs Labs: Laboratory Results - last 48 hr 07/29/20 07/30/20 07/30/20 23:18 06:29 11:33 POC Glucose 113 105 85 07/30/20 07/30/20 07/31/20 16:10 22:03 07:47 POC Glucose 279 H 129 H 115 07/31/20 07/31/20 07/31/20 11:46 16:40 22:10 POC Glucose 159 H 151 H 151 H Imaging Radiology Impressions: ITS Impressions KUB X-Ray 07/26/20 20:15 IMPRESSION: Moderate stool burden. No obstruction. Medications Medications Current Medications Generic Name Dose Route Start Last Admin Trade Name Freq PRN Reason Stop Dose Admin Acetaminophen 650 mg 07/22/20 23:50 07/31/20 17:01 Acetaminophen 325 Mg Tablet PO 650 mg Q6H PRN Administration Headache/Pain Mild Scale (1-3) Al Hydroxide/Mg Hydroxide 30 ml 07/22/20 23:50 Magnesium Hydrox/Alum Hydrox 30 Ml Oral.Susp PO Q6H PRN Heartburn/Nausea Artificial Tears 2 drop 07/25/20 11:54 Artificial Tears 15 Ml Drops EYE-BOTH Q4H PRN Dry Eyes Atenolol 50 mg 07/23/20 09:00 07/31/20 09:09 Atenolol 50 Mg Tablet PO 50 mg DAILY PATEL Administration Protocol Clonazepam 0.5 mg 07/23/20 14:43 07/31/20 22:01 Clonazepam 0.5 Mg Tablet PO 0.5 mg TID PRN Administration Anxiety Docusate Sodium 100 mg 07/27/20 12:26 Docusate Sodium 100 Mg Capsule PO BID PRN contipation Duloxetine HCl 20 mg 07/31/20 21:00 07/31/20 22:01 Duloxetine Hcl 20 Mg Capsule.Dr PO 20 mg BEDTIME PATEL Administration Glipizide 10 mg 07/23/20 07:30 07/31/20 09:04 Glipizide 10 Mg Tablet PO 10 mg DAILY@0730 PATEL Administration Glipizide 5 mg 07/23/20 17:00 07/31/20 16:46 Glipizide 5 Mg Tablet PO 5 mg DAILY@1700 PATEL Administration Insulin Glargine 14 unit 07/26/20 09:00 07/31/20 09:04 Insulin Glargine,Hum.Rec.Anlog 100 Unit/Ml 10 Ml Vial SUBCUT 14 unit DAILY PATEL Administration Levofloxacin 500 mg 07/28/20 17:00 07/31/20 16:46 Levofloxacin 500 Mg Tablet PO 08/02/20 16:59 500 mg Q24H PATEL Administration Magnesium Hydroxide 30 ml 07/22/20 23:50 Milk Of Magnesia 30 Ml Oral.Susp PO DAILY PRN Constipation Melatonin 6 mg 07/27/20 15:22 Melatonin 3 Mg Tablet PO BEDTIME PRN Insomnia Non-Formulary Medication 8 mcg 07/23/20 09:00 Lubiprostone [Amitiza] PO BID PATEL Nystatin 1 appl 07/25/20 21:00 07/31/20 22:01 Nystatin Cream 15 Gm Tube TOPICAL Not Given BID COUNT [facility]CLUDES [facility] Protocol Ondansetron HCl 4 mg 07/23/20 16:51 07/23/20 17:29 Ondansetron Odt 4 Mg Tab.Rapdis TRANSLINGU 4 mg Q12H PRN Administration Nausea Oxycodone HCl 15 mg 07/23/20 08:00 07/31/20 22:00 Oxycodone Hcl Immed Release 15 Mg Tablet PO 15 mg Q4H PATEL Administration Polyethylene Glycol 17 gm 07/25/20 20:48 07/27/20 09:03 Polyethylene Glycol 3350 17 Gm Powd.Pack PO 17 gm BID PRN Administration Constipation Sodium Biphosphate/Sodium Phosphate 133 ml 07/26/20 10:58 07/26/20 17:25 Sodium Phosphate,[place]-Dibasic 133 Ml Enema [place] 133 ml ONCE PRN Administration contipation Sodium Biphosphate/Sodium Phosphate 133 ml 07/26/20 18:00 Sodium Phosphate,[place]-Dibasic 133 Ml Enema [place] ONCE PRN Constipation Allergies Allergies Allergy/AdvReac Type Severity Reaction Status Date / Time Penicillins Allergy Mild RASH Unverified 10/29/19 17:20 Sulfa (Sulfonamide Allergy Unknown UNKNOWN Unverified 10/29/19 17:20 Antibiotics) Assessment & Plan Assessment & Plan (1) Complicated urinary tract infection: Status: Acute Code(s): N39.0 - Urinary tract infection, site not specified (2) Diabetes mellitus: Status: Acute Code(s): E11.9 - Type 2 diabetes mellitus without complications (3) Major depressive disorder, recurrent severe without psychotic features: Status: Acute Code(s): F33.2 - Major depressive disorder, recurrent severe without psychotic features Assessment and Plan: GI consult for bowel management continue Cymbalta needs much encouragement and Education consider low-dose Cymbalta Greater than 50% of the session was spent on counseling and/or coordination of care Reason for contiued inpatient stay Substantial Risk for: inability to function and rapid decompensation
[2020-08-01] MEDS: Acetaminophen 325 MG TABLET 650 MG PO ×3 (00:57→21:54)
--- NOTE | 2020-08-01 01:20 | PC.NURSE ---
Patient is awake at 1am reporting headache 10/10, stomach ache, and insomnia. She denies Fecal incontinence. Patient reports feeling the Cymbalta is not working for her. She notes she has been trying to decrease her reliance on Oxy and cutting back how often she is asking for it. Patient reports she spoke with an M.D. today about her Klonopin usage. Patient reports, at my age, I can't live without it. How am I going to face all my problems without a tranquilizer? Patient reports when she originally came into the hospital it was with the goal to detox. Patient reports she wanted to detox off the Oxy and take another medication in its place. Patient asks questions about Methadone. Patient is encouraged to work with her treatment team to discuss medication dosages and trying or discontinuing new meds. Non-medication coping skills were discussed with patient; reframing how she is approaching challenges. Patient was somewhat receptive to discussing reframing thought techniques. Patient reports anxiety related to her up coming eye surgeries as well as her son. She reports, he's a nervous wreck. Patient reports having two other sons who live out of state. She begins to cry, stating Jessica been in the hospital for 8 days and neither one of them have called. Patient is administered Tylenol for headache and settled back into bed. Will continue to monitor and assess as needed.
[2020-08-01] MEDS: oxyCODONE HCl Immed Release 15 MG TABLET PO ×5 (02:25→21:55)
[2020-08-01] MEDS: clonazePAM 0.5 MG TABLET PO ×3 (06:26→21:54)
[2020-08-01] MEDS: glipiZIDE 10 MG TABLET PO (06:26)
[2020-08-01 06:28] LABS: Glucose, Whole Blood 97 mg/dL (60-115)
[2020-08-01 08:46] VITALS: BP 121/60; PULSE 73
[2020-08-01] MEDS: atenoloL 50 MG TABLET PO (08:46)
--- NOTE | 2020-08-01 10:09 | P.CNGI_ITS ---
History of Present Illness Data of Consult Service Date: 08/01/20 Requesting physician: James Fink Primary Care Provider: Unknown Physician HPI Reason for consult: altered bowel habit 80-year-old female with hx of DM, HTN, varicose veins who I am seeing for assessment of altered bowel habit Admitted to in patient psych due to severe depression. commenced on cymbalta but has been on various psych meds for many years. She is also on chronic oxycodone for her left shoulder for 15 years or so. she had colonoscopy <10 yrs at [facility] and was normal per her report. She has uterine prolpase but not compliant with pessarie. She has issues with constipation followed by going to the toilet many times and few episodes of fecal incontinence. She has no blood in stool. Sometimes unaware of accidental soiling, no urgency. She is diabetic bt said she has good control. Review of Systems Review of Systems: Constitutional : No Weight loss, No Fever, No Chills ENT/Mouth : No sore throat, No Rhinorrhea Eyes: No Swelling, No Redness Cardiovascular : No Chest Pain, No SOB, No Edema Respiratory : No Cough, No Sputum, No Wheezing Gastrointestinal : see HPI Genitourinary : NO Dysuria, No Urinary Frequency, No Hematuria, No Urgency Musculoskeletal : + joint pain, + Myalgias, No Joint Swelling Skin : No Skin Lesions, No rash Neuro : No Weakness, No Numbness, No Dizziness, No Headache Psych : ++ Depression Heme/Lymph: No Bruising, No Lymphadenopathy Endocrine : No Polyuria, No Polydipsia All other systems reviewed and are negative. Yes all other systems are reviewed and are negative [facility] Past Medical History Medical History (Updated 08/01/20 @ 17:51 by Mary Vital MD) Diabetes mellitus HTN (hypertension) Family History Family history: reviewed and not pertinent Surgical History Surgical History (Updated 07/24/20 @ 15:15 by Arvin Prescott MD) History of cholecystectomy Shoulder joint replacement status Social History Social History Household Members: Other Household Members Other:: son Housing: Apartment Do you presently have visiting nurse or other home services: No Patient Tobacco Use Status: Never used Tobacco e-Cigarette/Vaping Use: Never Used Patient Interested in Nicotine Replacement: No Patient Given Instructions on How to Stop Smoking: No Second Hand Smoke Exposure: No Use of substances other than those prescribed or required for medical reasons: No Currently Displaying Signs/Symptoms of Drug Intoxication Withdrawal: No Any prior treatment program specific to substance use: No Have you been hit, kicked, punched, or otherwise hurt by someone within the past year? If so, by whom?: No Do you feel safe in your current relationship?: Yes Is there a partner from a previous relationship who is making you feel unsafe now?: No Are you made to feel afraid or neglected: No Spiritual Healthcare Practices: [facility] Pract[facility]: [facility] Cultural Healthcare Practices: NA Advance Directives: No Advance Directives Information Provided: No Advance Directives on File: No Do you have thoughts of harming others: None Do you have a plan to hurt others: No Plan Recently lost weight without trying: Yes How much weight loss: 2-13 pounds Eating poorly because of decreased appetite: Yes Nutrition screen score: 4 Nutrition Risks: Poor intake 0-25% >4 days Patient : No : No Poor oral hygiene: Yes service: Yes Sexual orientation: Straight/Heterosexual Meds Allergies Allergy/AdvReac Type Severity Reaction Status Date / Time Penicillins Allergy Mild RASH Unverified 10/29/19 17:20 Sulfa (Sulfonamide Allergy Unknown UNKNOWN Unverified 10/29/19 17:20 Antibiotics) Active Medications: Current Medications Generic Name Dose Route Start Last Admin Trade Name Freq PRN Reason Stop Dose Admin Acetaminophen 650 mg 07/22/20 23:50 08/01/20 00:57 Acetaminophen 325 Mg Tablet PO 650 mg Q6H PRN Administration Headache/Pain Mild Scale (1-3) Al Hydroxide/Mg Hydroxide 30 ml 07/22/20 23:50 Magnesium Hydrox/Alum Hydrox 30 Ml Oral.Susp PO Q6H PRN Heartburn/Nausea Artificial Tears 2 drop 07/25/20 11:54 Artificial Tears 15 Ml Drops EYE-BOTH Q4H PRN Dry Eyes Atenolol 50 mg 07/23/20 09:00 08/01/20 08:46 Atenolol 50 Mg Tablet PO 50 mg DAILY PATEL Administration Protocol Clonazepam 0.5 mg 07/23/20 14:43 08/01/20 06:26 Clonazepam 0.5 Mg Tablet PO 0.5 mg TID PRN Administration Anxiety Docusate Sodium 100 mg 07/27/20 12:26 Docusate Sodium 100 Mg Capsule PO BID PRN contipation Duloxetine HCl 20 mg 07/31/20 21:00 07/31/20 22:01 Duloxetine Hcl 20 Mg Capsule.Dr PO 20 mg BEDTIME PATEL Administration Glipizide 10 mg 07/23/20 07:30 08/01/20 06:26 Glipizide 10 Mg Tablet PO 10 mg DAILY@0730 [facility] Administration Glipizide 5 mg 07/23/20 17:00 07/31/20 16:46 Glipizide 5 Mg Tablet PO 5 mg DAILY@1700 [facility] Administration Insulin Glargine 14 unit 07/26/20 09:00 07/31/20 09:04 Insulin Glargine,Hum.Rec.Anlog 100 Unit/Ml 10 Ml Vial SUBCUT 14 unit DAILY [facility] Administration Levofloxacin 500 mg 07/28/20 17:00 07/31/20 16:46 Levofloxacin 500 Mg Tablet PO 08/02/20 16:59 500 mg Q24H [facility] Administration Magnesium Hydroxide 30 ml 07/22/20 23:50 Milk Of Magnesia 30 Ml Oral.Susp PO DAILY PRN Constipation Melatonin 6 mg 07/27/20 15:22 Melatonin 3 Mg Tablet PO BEDTIME PRN Insomnia Non-Formulary Medication 8 mcg 07/23/20 09:00 Lubiprostone [Amitiza] PO BID [facility] Nystatin 1 appl 07/25/20 21:00 07/31/20 22:01 Nystatin Cream 15 Gm Tube TOPICAL Not Given BID [facility] Protocol Ondansetron HCl 4 mg 07/23/20 16:51 07/23/20 17:29 Ondansetron Odt 4 Mg Tab.Rapdis TRANSLINGU 4 mg Q12H PRN Administration Nausea Oxycodone HCl 15 mg 07/23/20 08:00 08/01/20 06:29 Oxycodone Hcl Immed Release 15 Mg Tablet PO 15 mg Q4H [facility] Administration Polyethylene Glycol 17 gm 07/25/20 20:48 07/27/20 09:03 Polyethylene Glycol 3350 17 Gm Powd.Pack PO 17 gm BID PRN Administration Constipation Sodium Biphosphate/Sodium Phosphate 133 ml 07/26/20 10:58 07/26/20 17:25 Sodium Phosphate,[place]-Dibasic 133 Ml Enema [place] 133 ml ONCE PRN Administration contipation Sodium Biphosphate/Sodium Phosphate 133 ml 07/26/20 18:00 Sodium Phosphate,[place]-Dibasic 133 Ml Enema [place] ONCE PRN Constipation Home Medications Medication Instructions Recorded Confirmed Last Taken Type atenolol 50 mg PO DAILY 07/22/20 07/22/20 Unknown History clonazepam 0.5 mg PO BID PRN 07/22/20 07/22/20 Unknown History glimepiride 2 mg PO DAILY 07/22/20 07/22/20 Unknown History glimepiride 4 mg PO DAILY 07/22/20 07/22/20 Unknown History insulin glargine [Lantus U-100 14 unit SUBCUT BEDTIME 07/22/20 07/22/20 07/21/20 23:16 History Insulin] lubiprostone [Amitiza] 8 mcg PO BID 07/22/20 07/22/20 Unknown History oxycodone 15 mg PO Q4H 07/22/20 07/22/20 Unknown History Physical Exam Vital Signs: Vital Signs: Last Vital Signs Temp 98 F 07/31/20 18:00 Pulse 73 08/01/20 08:46 Resp 14 07/31/20 06:00 BP 121/60 08/01/20 08:46 Pulse Ox 97 07/31/20 18:00 Body Mass Index 26.3 EXAM: GENERAL: The patient is well developed and nontoxic. Flat affect VITAL SIGNS:see workflow HEENT: Nonicteric sclerae, PERRLA, EOMI. Oropharynx clear. Moist mucous membranes. Conjunctivae appear well perfused. No thyroid mass. CHEST: Chest wall is nontender. HEART: Regular rate and rhythm without murmurs. LUNGS: Clear to auscultation bilaterally. ABDOMEN: Soft, positive bowel sounds, nontender, no organomegaly.no flank tenderness SKIN: No rash, no excessive bruising, petechiae, or purpura. NEUROLOGIC: Cranial nerves II-XII intact without motor/sensory deficit. Psych--flat affect, normal speech Results Microbiology Microbiology Results: Microbiology 07/27/20 21:50 Kidney - Clean Catch Midstream Urine Culture - Final No growth. Assessment and Plan (1) Constipation by delayed colonic transit: Status: Acute 1/ Constipation with probable overflow incontinence from medication use including opiates and psychiatric medications, as well as outflow obstruction from uterine prolapse. PLAN: 1/ Recommend high fiber diet, can add metamucil BID 2/ Add movantik 12.5 mg daily, stop lubiprostone for the meantime 3/ check TSH o/p f/u in GI office after d/c Procedures Date of Service Date of Service: 08/01/20
[2020-08-01] MEDS: Insulin Glargine,Hum.rec.anlog 100 UNIT/ML 10 ML VIAL 14 UNIT SUBCUT (10:53)
[2020-08-01] MEDS: Nystatin Cream 15 GM TUBE 1 APPL TOPICAL (10:54)
--- NOTE | 2020-08-01 11:04 | HO.PSYCHPN ---
Subjective Subjective Date of Service: 08/01/20 Reason For Visit: Depression and anxiety Subjective Notes: Conditional Voluntary Interim History: The patient remains somatically preoccupied with medications, alleging side effects that are not related. Now on Cymbalta 20 mg po daily. As per nursing staff, no evidence of fecal incontinence. Today, she stated that she is extremely anxious since she feels that her son is close to a breakdown , she also stated that Cymbalta doesn't work for her so she agreed to change it to Celexa. Mental Status Exam Mental Status Exam Patient Appearance: Well Grooomed Patient Orientation: Person, Place and Time Level of Consciousness: Awake Patient Behavior: Appropriate and Isolative Mood Description: Withdrawn and Depressed Affect Description: Calm and Constricted Patient Cognition Impaired: No Ability to Follow Directions: Good Speech Pattern: Clear Memory Description: Intact Hallucinations: None Delusions: Not Present Thought Process: Goal Oriented Thought Content: positive for Obsessional Thoughts, positive for Poverty of Content and positive for Preoccupation Depressive Symptoms: Increased Anxiety Judgement: Fair Diagnostics Vital Signs (24Hr): Vital Signs - 24 hr 07/31/20 18:00 08/01/20 08:46 Temperature 98 F Pulse Rate 81 73 Blood Pressure 125/60 121/60 Pulse Oximetry 97 Body Mass Index 26.3 Labs Labs: Laboratory Results - last 48 hr 07/30/20 07/30/20 07/30/20 11:33 16:10 22:03 POC Glucose 85 279 H 129 H 07/31/20 07/31/20 07/31/20 07:47 11:46 16:40 POC Glucose 115 159 H 151 H 07/31/20 08/01/20 22:10 06:23 POC Glucose 151 H 97 Imaging Radiology Impressions: ITS Impressions KUB X-Ray 07/26/20 20:15 IMPRESSION: Moderate stool burden. No obstruction. Medications Medications Current Medications Generic Name Dose Route Start Last Admin Trade Name Freq PRN Reason Stop Dose Admin Acetaminophen 650 mg 07/22/20 23:50 08/01/20 00:57 Acetaminophen 325 Mg Tablet PO 650 mg Q6H PRN Administration Headache/Pain Mild Scale (1-3) Al Hydroxide/Mg Hydroxide 30 ml 07/22/20 23:50 Magnesium Hydrox/Alum Hydrox 30 Ml Oral.Susp PO Q6H PRN Heartburn/Nausea Artificial Tears 2 drop 07/25/20 11:54 Artificial Tears 15 Ml Drops EYE-BOTH Q4H PRN Dry Eyes Atenolol 50 mg 07/23/20 09:00 08/01/20 08:46 Atenolol 50 Mg Tablet PO 50 mg DAILY PATEL Administration Protocol Clonazepam 0.5 mg 07/23/20 14:43 08/01/20 06:26 Clonazepam 0.5 Mg Tablet PO 0.5 mg TID PRN Administration Anxiety Docusate Sodium 100 mg 07/27/20 12:26 Docusate Sodium 100 Mg Capsule PO BID PRN contipation Duloxetine HCl 20 mg 07/31/20 21:00 07/31/20 22:01 Duloxetine Hcl 20 Mg Capsule.Dr PO 20 mg BEDTIME PAT[facility] Administration Glipizide 10 mg 07/23/20 07:30 08/01/20 06:26 Glipizide 10 Mg Tablet PO 10 mg DAILY@0730 [facility] Administration Glipizide 5 mg 07/23/20 17:00 07/31/20 16:46 Glipizide 5 Mg Tablet PO 5 mg DAILY@1700 [facility] Administration Insulin Glargine 14 unit 07/26/20 09:00 08/01/20 10:53 Insulin Glargine,Hum.Rec.Anlog 100 Unit/Ml 10 Ml Vial SUBCUT 14 unit DAILY [facility] Administration Levofloxacin 500 mg 07/28/20 17:00 07/31/20 16:46 Levofloxacin 500 Mg Tablet PO 08/02/20 16:59 500 mg Q24H PATEL Administration Magnesium Hydroxide 30 ml 07/22/20 23:50 Milk Of Magnesia 30 Ml Oral.Susp PO DAILY PRN Constipation Melatonin 6 mg 07/27/20 15:22 Melatonin 3 Mg Tablet PO BEDTIME PRN Insomnia Non-Formulary Medication 8 mcg 07/23/20 09:00 Lubiprostone [Amitiza] PO BID PATEL Nystatin 1 appl 07/25/20 21:00 08/01/20 10:54 Nystatin Cream 15 Gm Tube TOPICAL 1 appl BID PATEL Administration Protocol Ondansetron HCl 4 mg 07/23/20 16:51 07/23/20 17:29 Ondansetron Odt 4 Mg Tab.Rapdis TRANSLINGU 4 mg Q12H PRN Administration Nausea Oxycodone HCl 15 mg 07/23/20 08:00 08/01/20 06:29 Oxycodone Hcl Immed Release 15 Mg Tablet PO 15 mg Q4H [facility] Administration Polyethylene Glycol 17 gm 07/25/20 20:48 07/27/20 09:03 Polyethylene Glycol 3350 17 Gm Powd.Pack PO 17 gm BID PRN Administration Constipation Sodium Biphosphate/Sodium Phosphate 133 ml 07/26/20 10:58 07/26/20 17:25 Sodium Phosphate,[place]-Dibasic 133 Ml Enema [place] 133 ml ONCE PRN Administration contipation Sodium Biphosphate/Sodium Phosphate 133 ml 07/26/20 18:00 Sodium Phosphate,[place]-Dibasic 133 Ml Enema [place] ONCE PRN Constipation Allergies Allergies Allergy/AdvReac Type Severity Reaction Status Date / Time Penicillins Allergy Mild RASH Unverified 10/29/19 17:20 Sulfa (Sulfonamide Allergy Unknown UNKNOWN Unverified 10/29/19 17:20 Antibiotics) Assessment & Plan Assessment & Plan (1) Complicated urinary tract infection: Status: Acute Code(s): N39.0 - Urinary tract infection, site not specified (2) Diabetes mellitus: Status: Acute Code(s): E11.9 - Type 2 diabetes mellitus without complications (3) Major depressive disorder, recurrent severe without psychotic features: Status: Acute Code(s): F33.2 - Major depressive disorder, recurrent severe without psychotic features Assessment and Plan: The john paul is an elderly female with MDD and anxiety, admitted for suicidal ideation. 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 Plan: 1. D/C Cymbalta. 2. Celexa 5 mg now. 3. Add Ambien for sleep since she takes Klonopin at but now, she is going to use it only during the day. Greater than 50% of the session was spent on counseling and/or coordination of care Patient educated on: diagnosis, medication risk/benefits and medical condition Informed Consent: understands Reason for contiued inpatient stay Substantial Risk for: harm to self, inability to function, rapid decompensation and med/psych decompensation
[2020-08-01 12:11] VITALS: BMI 26.3
[2020-08-01] MEDS: levoFLOXacin 500 MG TABLET PO (16:45)
[2020-08-01] MEDS: glipiZIDE 5 MG TABLET PO (17:41)
[2020-08-01 18:00] VITALS: BP 138/85; PULSE 64; RESP 20; TEMP 36.9; O2SAT 97
[2020-08-01] MEDS: Zolpidem Tartrate 5 MG TABLET PO (22:03)
[2020-08-01 22:28] LABS: Glucose, Whole Blood 150 mg/dL (60-115)
[2020-08-01 22:37] VITALS: BP 138/85; PULSE 64; RESP 20; TEMP 36.9
[2020-08-01 23:45] VITALS: RESP 16
[2020-08-01 23:47] VITALS: RESP 16
[2020-08-02] MEDS: oxyCODONE HCl Immed Release 15 MG TABLET PO ×4 (01:50→20:21)
[2020-08-02 06:00] VITALS: BP 144/65; PULSE 61; RESP 18; TEMP 36.9; O2SAT 96
[2020-08-02] MEDS: Acetaminophen 325 MG TABLET 650 MG PO ×3 (06:40→20:20)
[2020-08-02] MEDS: glipiZIDE 10 MG TABLET PO (06:43)
[2020-08-02 06:49] LABS: Glucose, Whole Blood 84 mg/dL (60-115)
[2020-08-02 09:25] VITALS: BP 132/60; PULSE 63; RESP 18; TEMP 36.8; O2SAT 95
[2020-08-02 09:29] VITALS: BP 132/60; PULSE 63
[2020-08-02] MEDS: Docusate Sodium 100 MG CAPSULE PO (09:29)
[2020-08-02] MEDS: clonazePAM 0.5 MG TABLET PO ×3 (09:29→20:21)
[2020-08-02] MEDS: Escitalopram Oxalate 5 MG TABLET PO (09:29)
[2020-08-02] MEDS: atenoloL 50 MG TABLET PO (09:29)
[2020-08-02] MEDS: Nystatin Cream 15 GM TUBE 1 APPL TOPICAL (09:30)
[2020-08-02] MEDS: Artificial Tears 15 ML DROPS 2 DROP EYE-BOTH (09:30)
[2020-08-02] MEDS: Insulin Glargine,Hum.rec.anlog 100 UNIT/ML 10 ML VIAL 14 UNIT SUBCUT (09:31)
[2020-08-02] MEDS: polyethylene glycoL 3350 17 GM POWD.PACK PO (09:33)
--- NOTE | 2020-08-02 11:36 | P.PNPSI_ITS ---
Subjective Subjective Date of Service: 08/02/20 Reason For Visit: Depression and anxiety Interim History: The patient remains somatically preoccupied, asking for KUB since she had one on 07/27. She could not sleep with Ambien 5 mg, she usually uses Klonopin at hs. She agreed to change hypnotics and combine Ambien with Melatonin. She complained of headache after Lexapro at AM but also, she was constipated. Mental Status Exam Mental Status Exam Patient Appearance: Appropriate Patient Orientation: Person, Place, Time and Situation Level of Consciousness: Awake Patient Behavior: Appropriate Mood Description: Withdrawn Affect Description: Constricted Patient Cognition Impaired: No Ability to Follow Directions: Good Speech Pattern: Clear Memory Description: Intact Hallucinations: None Delusions: Not Present Thought Process: Intact Thought Content: positive for Intact Depressive Symptoms: Increased Anxiety, Difficulty Sleeping and Loss of Int. in Activity Judgement: Fair Diagnostics Vital Signs (24Hr): Vital Signs - 24 hr 08/01/20 18:00 08/01/20 22:37 08/01/20 23:45 Temperature 98.5 F 98.5 F Pulse Rate 64 64 Respiratory Rate 20 20 16 Blood Pressure 138/85 138/85 Pulse Oximetry 97 08/01/20 23:47 08/02/20 06:00 08/02/20 09:25 Temperature 98.5 F 98.3 F Pulse Rate 61 63 Respiratory Rate 16 18 18 Blood Pressure 144/65 H 132/60 Pulse Oximetry 96 95 08/02/20 09:29 Temperature Pulse Rate 63 Respiratory Rate Blood Pressure 132/60 Pulse Oximetry Body Mass Index 26.3 Labs Labs: Laboratory Results - last 48 hr 07/31/20 07/31/20 07/31/20 11:46 16:40 22:10 POC Glucose 159 H 151 H 151 H 08/01/20 08/01/20 08/02/20 06:23 22:23 06:37 POC Glucose 97 150 H 84 Imaging Radiology Impressions: ITS Impressions KUB X-Ray 07/26/20 20:15 IMPRESSION: Moderate stool burden. No obstruction. Medications Medications Current Medications Generic Name Dose Route Start Last Admin Trade Name Freq PRN Reason Stop Dose Admin Acetaminophen 650 mg 07/22/20 23:50 08/02/20 06:40 Acetaminophen 325 Mg Tablet PO 650 mg Q6H PRN Administration Headache/Pain Mild Scale (1-3) Al Hydroxide/Mg Hydroxide 30 ml 07/22/20 23:50 Magnesium Hydrox/Alum Hydrox 30 Ml Oral.Susp PO Q6H PRN Heartburn/Nausea Artificial Tears 2 drop 07/25/20 11:54 08/02/20 09:30 Artificial Tears 15 Ml Drops EYE-BOTH 2 drop Q4H PRN Administration Dry Eyes Atenolol 50 mg 07/23/20 09:00 08/02/20 09:29 Atenolol 50 Mg Tablet PO 50 mg DAILY PATEL Administration Protocol Clonazepam 0.5 mg 07/23/20 14:43 08/02/20 09:29 Clonazepam 0.5 Mg Tablet PO 0.5 mg TID PRN Administration Anxiety Docusate Sodium 100 mg 07/27/20 12:26 08/02/20 09:29 Docusate Sodium 100 Mg Capsule PO 100 mg BID PRN Administration contipation Escitalopram Oxalate 5 mg 08/02/20 09:00 08/02/20 09:29 Escitalopram Oxalate 5 Mg Tablet PO 5 mg DAILY PATEL Administration Glipizide 10 mg 07/23/20 07:30 08/02/20 06:43 Glipizide 10 Mg Tablet PO 10 mg DAILY@0730 PATEL Administration Glipizide 5 mg 07/23/20 17:00 08/01/20 17:41 Glipizide 5 Mg Tablet PO 5 mg DAILY@1700 PATEL Administration Insulin Glargine 14 unit 07/26/20 09:00 08/02/20 09:31 Insulin Glargine,Hum.Rec.Anlog 100 Unit/Ml 10 Ml Vial SUBCUT 14 unit DAILY [facility] Administration Levofloxacin 500 mg 07/28/20 17:00 08/01/20 16:45 Levofloxacin 500 Mg Tablet PO 08/02/20 16:59 500 mg Q24H PATEL Administration Magnesium Hydroxide 30 ml 07/22/20 23:50 Milk Of Magnesia 30 Ml Oral.Susp PO DAILY PRN Constipation Melatonin 6 mg 07/27/20 15:22 Melatonin 3 Mg Tablet PO BEDTIME PRN Insomnia Nystatin 1 appl 07/25/20 21:00 08/02/20 09:30 Nystatin Cream 15 Gm Tube TOPICAL 1 appl BID PATEL Administration Protocol Ondansetron HCl 4 mg 07/23/20 16:51 07/23/20 17:29 Ondansetron Odt 4 Mg Tab.Rapdis TRANSLINGU 4 mg Q12H PRN Administration Nausea Oxycodone HCl 15 mg 07/23/20 08:00 08/02/20 06:39 Oxycodone Hcl Immed Release 15 Mg Tablet PO 15 mg Q4H [facility]EL Administration Polyethylene Glycol 17 gm 07/25/20 20:48 08/02/20 09:33 Polyethylene Glycol 3350 17 Gm Powd.Pack PO 17 gm BID PRN Administration Constipation Psyllium Hydrophilic Mucilloid 3.4 gm 08/02/20 21:00 Psyllium Seed 3.4 Gm Powd.Pack PO BID PATEL Sodium Biphosphate/Sodium Phosphate 133 ml 07/26/20 10:58 07/26/20 17:25 Sodium Phosphate,[place]-Dibasic 133 Ml Enema [place] 133 ml ONCE PRN Administration contipation Sodium Biphosphate/Sodium Phosphate 133 ml 07/26/20 18:00 Sodium Phosphate,[place]-Dibasic 133 Ml Enema [place] ONCE PRN Constipation Zolpidem Tartrate 5 mg 08/01/20 21:00 08/01/20 22:03 Zolpidem Tartrate 5 Mg Tablet PO 5 mg BEDTIME PATEL Administration Allergies Allergies Allergy/AdvReac Type Severity Reaction Status Date / Time Penicillins Allergy Mild RASH Unverified 10/29/19 17:20 Sulfa (Sulfonamide Allergy Unknown UNKNOWN Unverified 10/29/19 17:20 Antibiotics) Assessment & Plan Assessment & Plan (1) Constipation by delayed colonic transit: Status: Acute Code(s): K59.01 - Slow transit constipation Assessment and Plan: 1/ Constipation with probable overflow incontinence from medication use including opiates and psychiatric medications, as well as outflow obstruction from uterine prolapse. PLAN: 1/ Recommend high fiber diet, can add metamucil BID 2/ Add movantik 12.5 mg daily, stop lubiprostone for the meantime 3/ check TSH o/p f/u in GI office after d/c (2) Major depressive disorder, recurrent severe without psychotic features: Status: Acute Code(s): F33.2 - Major depressive disorder, recurrent severe without psychotic features Assessment and Plan: The patient is an older female with MDD, probably yatrogenic opiod and benzodiazepine dependence., admitted for exacerbaton of depression that impaired her functionality. She has just changed from Cymbalta to Lexapro since she couldn't tolerate it. Plan: Keep Lexapro 5 mg Add fiber as per G-I consult. TSH, CBC, BMP, KUB, U/A for tomorrow Greater than 50% of the session was spent on counseling and/or coordination of care Reason for contiued inpatient stay Substantial Risk for: inability to function, rapid decompensation and med/psych decompensation
[2020-08-02 13:26] LABS: Glucose, Whole Blood 86 mg/dL (60-115)
--- NOTE | 2020-08-02 14:25 | P.CONWO_ITS ---
History of Present Illness Data of Consult Service Date: 08/02/20 Requesting physician: James Fink Primary Care Provider: Unknown Physician HPI Reason for consult: coccyx wound 80-year-old female on the mental health unit for anxiety and depression, trying medications to help with sleep. The wound causes her mild pain. She denies any drainage from the wound. She is currently using zinc oxide over them midline area deep within the gluteal cleft over the coccyx. She had eggs for breakfast. She has good protein intake. [facility] Medical History (Updated 08/02/20 @ 14:34 by BRIA Dodson) Diabetes mellitus HTN (hypertension) Family history: reviewed and not pertinent Surgical History (Updated 07/24/20 @ 15:15 by Arvin Prescott MD) History of cholecystectomy Shoulder joint replacement status Social History Household Members: Other Household Members Other:: son Housing: Apartment Do you presently have visiting nurse or other home services: No Patient Tobacco Use Status: Never used Tobacco e-Cigarette/Vaping Use: Never Used Patient Interested in Nicotine Replacement: No Patient Given Instructions on How to Stop Smoking: No Second Hand Smoke Exposure: No Use of substances other than those prescribed or required for medical reasons: No Currently Displaying Signs/Symptoms of Drug Intoxication Withdrawal: No Any prior treatment program specific to substance use: No Have you been hit, kicked, punched, or otherwise hurt by someone within the past year? If so, by whom?: No Do you feel safe in your current relationship?: Yes Is there a partner from a previous relationship who is making you feel unsafe now?: No Are you made to feel afraid or neglected: No Spiritual Healthcare Practices: Gnosticism Nondenominational Healthcare Practices: Gnosticism Cultural Healthcare Practices: NA Advance Directives: No Advance Directives Information Provided: No Advance Directives on File: No Do you have thoughts of harming others: None Do you have a plan to hurt others: No Plan Recently lost weight without trying: Yes How much weight loss: 2-13 pounds Eating poorly because of decreased appetite: Yes Nutrition screen score: 4 Nutrition Risks: Poor intake 0-25% >4 days Patient : No : No Poor oral hygiene: Yes service: Yes Sexual orientation: Straight/Heterosexual Meds Allergies Allergy/AdvReac Type Severity Reaction Status Date / Time Penicillins Allergy Mild RASH Unverified 10/29/19 17:20 Sulfa (Sulfonamide Allergy Unknown UNKNOWN Unverified 10/29/19 17:20 Antibiotics) Active Medications: Current Medications Generic Name Dose Route Start Last Admin Trade Name Freq PRN Reason Stop Dose Admin Acetaminophen 650 mg 07/22/20 23:50 08/02/20 12:16 Acetaminophen 325 Mg Tablet PO 650 mg Q6H PRN Administration Headache/Pain Mild Scale (1-3) Al Hydroxide/Mg Hydroxide 30 ml 07/22/20 23:50 Magnesium Hydrox/Alum Hydrox 30 Ml Oral.Susp PO Q6H PRN Heartburn/Nausea Artificial Tears 2 drop 07/25/20 11:54 08/02/20 09:30 Artificial Tears 15 Ml Drops EYE-BOTH 2 drop Q4H PRN Administration Dry Eyes Atenolol 50 mg 07/23/20 09:00 08/02/20 09:29 Atenolol 50 Mg Tablet PO 50 mg DAILY PATEL Administration Protocol Clonazepam 0.5 mg 07/23/20 14:43 08/02/20 09:29 Clonazepam 0.5 Mg Tablet PO 0.5 mg TID PRN Administration Anxiety Docusate Sodium 100 mg 07/27/20 12:26 08/02/20 09:29 Docusate Sodium 100 Mg Capsule PO 100 mg BID PRN Administration contipation Escitalopram Oxalate 5 mg 08/02/20 09:00 08/02/20 09:29 Escitalopram Oxalate 5 Mg Tablet PO 5 mg DAILY PATEL Administration Glipizide 10 mg 07/23/20 07:30 08/02/20 06:43 Glipizide 10 Mg Tablet PO 10 mg DAILY@0730 PATEL Administration Glipizide 5 mg 07/23/20 17:00 08/01/20 17:41 Glipizide 5 Mg Tablet PO 5 mg DAILY@1700 PATEL Administration Insulin Glargine 14 unit 07/26/20 09:00 08/02/20 09:31 Insulin Glargine,Hum.Rec.Anlog 100 Unit/Ml 10 Ml Vial SUBCUT 14 unit DAILY PATEL Administration Levofloxacin 500 mg 07/28/20 17:00 08/01/20 16:45 Levofloxacin 500 Mg Tablet PO 08/02/20 16:59 500 mg Q24H PATEL Administration Magnesium Hydroxide 30 ml 07/22/20 23:50 Milk Of Magnesia 30 Ml Oral.Susp PO DAILY PRN Constipation Melatonin 6 mg 08/02/20 21:00 Melatonin 3 Mg Tablet PO BEDTIME PATEL Nystatin 1 appl 07/25/20 21:00 08/02/20 09:30 Nystatin Cream 15 Gm Tube TOPICAL 1 appl BID PATEL Administration Protocol Ondansetron HCl 4 mg 07/23/20 16:51 07/23/20 17:29 Ondansetron Odt 4 Mg Tab.Rapdis TRANSLINGU 4 mg Q12H PRN Administration Nausea Oxycodone HCl 15 mg 07/23/20 08:00 08/02/20 12:16 Oxycodone Hcl Immed Release 15 Mg Tablet PO 15 mg Q4H [facility] Administration Polyethylene Glycol 17 gm 07/25/20 20:48 08/02/20 09:33 Polyethylene Glycol 3350 17 Gm Powd.Pack PO 17 gm BID PRN Administration Constipation Psyllium Hydrophilic Mucilloid 3.4 gm 08/02/20 21:00 Psyllium Seed 3.4 Gm Powd.Pack PO BID PATEL Sodium Biphosphate/Sodium Phosphate 133 ml 07/26/20 10:58 07/26/20 17:25 Sodium Phosphate,[place]-Dibasic 133 Ml Enema [place] 133 ml ONCE PRN Administration contipation Sodium Biphosphate/Sodium Phosphate 133 ml 07/26/20 18:00 Sodium Phosphate,[place]-Dibasic 133 Ml Enema [place] ONCE PRN Constipation Zolpidem Tartrate 5 mg 08/01/20 21:00 08/01/20 22:03 Zolpidem Tartrate 5 Mg Tablet PO 5 mg BEDTIME [facility] Administration Home Medications Medication Instructions Recorded Confirmed Last Taken Type atenolol 50 mg PO DAILY 07/22/20 07/22/20 Unknown History clonazepam 0.5 mg PO BID PRN 07/22/20 07/22/20 Unknown History glimepiride 2 mg PO DAILY 07/22/20 07/22/20 Unknown History glimepiride 4 mg PO DAILY 07/22/20 07/22/20 Unknown History insulin glargine [Lantus U-100 14 unit SUBCUT BEDTIME 07/22/20 07/22/20 07/21/20 23:16 History Insulin] lubiprostone [Amitiza] 8 mcg PO BID 07/22/20 07/22/20 Unknown History oxycodone 15 mg PO Q4H 07/22/20 07/22/20 Unknown History Physical Exam Vital Signs and Narrative: Vital Signs: Last Vital Signs Temp 98.3 F 08/02/20 09:25 Pulse 63 08/02/20 09:29 Resp 18 08/02/20 09:25 BP 132/60 08/02/20 09:29 Pulse Ox 95 08/02/20 09:25 Body Mass Index 26.3 Examination deep within the gluteal cleft shows a healed 0.8 cm in length former wound which is now fully epithelialized. No redness streaking or warmth. In her room is a tube of Triad. There is also tube of zinc oxide. Results Labs Labs: Laboratory Results - last 24 hr 08/01/20 08/02/20 08/02/20 22:23 06:37 12:23 POC Glucose 150 H 84 86 Assessment and Plan (1) Unspecified skin changes: Status: Acute 80-year-old female without significant risk factor for pressure ulcer. Mobility is excellent. Nutrition is excellent. There is no open wound. Recommend continued use of zinc oxide to protect friable tissue which may have been a former wound deep within the gluteal cleft. No evidence of abscess. Continue with good hygiene.
[2020-08-02 17:03] LABS: Glucose, Whole Blood 136 mg/dL (60-115)
[2020-08-02 18:00] VITALS: BP 134/75; PULSE 70; RESP 16; TEMP 36.2; O2SAT 96
[2020-08-02] MEDS: glipiZIDE 5 MG TABLET PO (18:38)
[2020-08-02 18:39] LABS: Urine Cytology See Pathology rpt
[2020-08-02 20:47] LABS: Glucose, Whole Blood 194 mg/dL (60-115)
[2020-08-02] MEDS: Melatonin 3 MG TABLET 6 MG PO (22:58)
[2020-08-02] MEDS: Zolpidem Tartrate 5 MG TABLET PO (22:59)
[2020-08-03] MEDS: oxyCODONE HCl Immed Release 15 MG TABLET PO ×4 (05:08→19:55)
[2020-08-03] MEDS: Acetaminophen 325 MG TABLET 650 MG PO ×3 (05:08→19:57)
[2020-08-03 06:00] VITALS: BP 167/72; PULSE 60; RESP 16; TEMP 36.6; O2SAT 98
[2020-08-03 06:41] LABS: MANUAL DIFF FLAG NO
[2020-08-03 06:43] LABS: Basophils Percent Auto 0.5 % (0-2); Eosinophils Absolute Auto 0.1 X10*3/uL (0.0-0.4); Eosinophils Percent Auto 1.8 % (0-4); Hematocrit 34.9 % (37-47); Hemoglobin 11.6 g/dl (12.0-16.0); Imm Gran Abs Auto 0.01 X10*3/uL (0.00-0.03); Imm Gran Pct Auto 0.1 % (0.0-0.4); Lymphocytes Absolute Auto 3.2 X10*3/uL (1.2-4.9); Lymphocytes Percent Auto 40.7 % (20-40); Mean Corpuscular HGB Conc 33.2 g/dl (31.0-35.0); Mean Corpuscular Volume 96.1 fL (80-98); Mean Platelet Volume 10.2 fL (9.4-12.3); Monocytes Absolute Auto 0.8 X10*3/uL (0.1-1.2); Monocytes Percent Auto 9.9 % (2-11); Neutrophils Absolute Auto 3.7 X10*3/uL (2.0-8.3); Platelet Count 248 X10*3/uL (160-400); Red Blood Count 3.63 X10*6/uL (4.20-5.50); Red Cell Distribution Width 11.6 % (11.0-16.0); White Blood Count 7.9 X10*3/uL (4.8-10.8)
[2020-08-03 07:03] LABS: Anion Gap 11 (12-20); Blood Urea Nitrogen 14 mg/dL (9-16); Calcium 9.4 mg/dL (8.4-10.2); Carbon Dioxide 28 mmol/L (22-29); Chloride 104 mmol/L (96-108); Creatinine Clr Calc Pharmacy 55.3; Estimated Glomerular Filt Rate > 60; Glucose Fasting 106 mg/dL (60-99); Potassium 3.6 mmol/L (3.3-5.1); Sodium 139 mmol/L (135-145)
[2020-08-03 07:24] LABS: Thyroid Stimulating Hormone 0.48 uIU/mL (0.32-4.0)
[2020-08-03] MEDS: glipiZIDE 10 MG TABLET PO (08:02)
[2020-08-03 08:29] LABS: Glucose, Whole Blood 91 mg/dL (60-115)
--- NOTE | 2020-08-03 09:12 | P.PNPSI_ITS ---
Subjective Subjective Date of Service: 08/03/20 Reason For Visit: Depression and anxiety Interim History: The patient remains chronically anxious; we changed his diet as per suggestion of Gasrroenterology. She reported some issues with her sleep but better than yesterday. She reported again side effects with Lexapro and wants to go back to Cymbalta AM. Mental Status Exam Mental Status Exam Patient Appearance: Well Grooomed Patient Orientation: Person, Place, Time and Situation Level of Consciousness: Awake Patient Behavior: Cooperative Mood Description: Withdrawn Affect Description: Constricted Patient Cognition Impaired: No Ability to Follow Directions: Good Speech Pattern: Clear Thought Process: Slowed Thinking Thought Content: positive for Perseveration Depressive Symptoms: Increased Anxiety Judgement: Fair Diagnostics Vital Signs (24Hr): Vital Signs - 24 hr 08/02/20 09:25 08/02/20 09:29 08/02/20 18:00 Temperature 98.3 F 97.1 F Pulse Rate 63 63 70 Respiratory Rate 18 16 Blood Pressure 132/60 132/60 134/75 Pulse Oximetry 95 96 08/03/20 06:00 Temperature 97.8 F Pulse Rate 60 Respiratory Rate 16 Blood Pressure 167/72 H Pulse Oximetry 98 Body Mass Index 26.3 Labs Results: 08/03/20 06:35 08/03/20 06:35 Labs: Laboratory Results - last 48 hr 08/01/20 08/02/20 08/02/20 22:23 06:37 12:23 WBC RBC Hgb Hct MCV MCH MCHC RDW Plt Count MPV Immature Gran % (Auto) Neut % (Auto) Lymph % (Auto) [place] % (Auto) Eos % (Auto) Baso % (Auto) Lymph # (Auto) [place] # (Auto) Eos # (Auto) Baso # (Auto) Abs Immat Gran (auto) Absolute Neuts (auto) Absolute Nucleated RBC Nucleated RBC % (auto) Sodium Potassium Chloride Carbon Dioxide Anion Gap BUN Creatinine Estim Creat Clear Calc Estimated GFR POC Glucose 150 H 84 86 Fasting Glucose Calcium TSH 08/02/20 08/02/20 08/03/20 16:39 20:39 06:35 WBC 7.9 RBC 3.63 L Hgb 11.6 L Hct 34.9 L MCV 96.1 MCH 32.0 MCHC 33.2 RDW 11.6 Plt Count 248 MPV 10.2 Immature Gran % (Auto) 0.1 Neut % (Auto) 47.0 Lymph % (Auto) 40.7 H [place] % (Auto) 9.9 Eos % (Auto) 1.8 Baso % (Auto) 0.5 Lymph # (Auto) 3.2 [place] # (Auto) 0.8 Eos # (Auto) 0.1 Baso # (Auto) 0.0 Abs Immat Gran (auto) 0.01 Absolute Neuts (auto) 3.7 Absolute Nucleated RBC 0.000 Nucleated RBC % (auto) 0.0 Sodium Potassium Chloride Carbon Dioxide Anion Gap BUN Creatinine Estim Creat Clear Calc Estimated GFR POC Glucose 136 H 194 H Fasting Glucose Calcium TSH 08/03/20 08/03/20 06:35 08:06 WBC RBC Hgb Hct MCV MCH MCHC RDW Plt Count MPV Immature Gran % (Auto) Neut % (Auto) Lymph % (Auto) [place] % (Auto) Eos % (Auto) Baso % (Auto) Lymph # (Auto) [place] # (Auto) Eos # (Auto) Baso # (Auto) Abs Immat Gran (auto) Absolute Neuts (auto) Absolute Nucleated RBC Nucleated RBC % (auto) Sodium 139 Potassium 3.6 Chloride 104 Carbon Dioxide 28 Anion Gap 11 L BUN 14 Creatinine 0.76 Estim Creat Clear Calc 55.3 Estimated GFR > 60 POC Glucose 91 Fasting Glucose 106 H Calcium 9.4 TSH 0.48 Imaging Radiology Impressions: ITS Impressions KUB X-Ray 07/26/20 20:15 IMPRESSION: Moderate stool burden. No obstruction. Medications Medications Current Medications Generic Name Dose Route Start Last Admin Trade Name Freq PRN Reason Stop Dose Admin Acetaminophen 650 mg 07/22/20 23:50 08/03/20 05:08 Acetaminophen 325 Mg Tablet PO 650 mg Q6H PRN Administration Headache/Pain Mild Scale (1-3) Al Hydroxide/Mg Hydroxide 30 ml 07/22/20 23:50 Magnesium Hydrox/Alum Hydrox 30 Ml Oral.Susp PO Q6H PRN Heartburn/Nausea Artificial Tears 2 drop 07/25/20 11:54 08/02/20 09:30 Artificial Tears 15 Ml Drops EYE-BOTH 2 drop Q4H PRN Administration Dry Eyes Atenolol 50 mg 07/23/20 09:00 08/02/20 09:29 Atenolol 50 Mg Tablet PO 50 mg DAILY PATEL Administration Protocol Clonazepam 0.5 mg 07/23/20 14:43 08/02/20 20:21 Clonazepam 0.5 Mg Tablet PO 0.5 mg TID PRN Administration Anxiety Docusate Sodium 100 mg 07/27/20 12:26 08/02/20 09:29 Docusate Sodium 100 Mg Capsule PO 100 mg BID PRN Administration contipation Escitalopram Oxalate 5 mg 08/02/20 09:00 08/02/20 09:29 Escitalopram Oxalate 5 Mg Tablet PO 5 mg DAILY PATEL Administration Glipizide 10 mg 07/23/20 07:30 08/03/20 08:02 Glipizide 10 Mg Tablet PO 10 mg DAILY@0730 PATEL Administration Glipizide 5 mg 07/23/20 17:00 08/02/20 18:38 Glipizide 5 Mg Tablet PO 5 mg DAILY@1700 PATEL Administration Insulin Glargine 14 unit 07/26/20 09:00 08/02/20 09:31 Insulin Glargine,Hum.Rec.Anlog 100 Unit/Ml 10 Ml Vial SUBCUT 14 unit DAILY PATEL Administration Magnesium Hydroxide 30 ml 07/22/20 23:50 Milk Of Magnesia 30 Ml Oral.Susp PO DAILY PRN Constipation Melatonin 6 mg 08/02/20 21:00 08/02/20 22:58 Melatonin 3 Mg Tablet PO 6 mg BEDTIME [facility] Administration Nystatin 1 appl 07/25/20 21:00 08/02/20 22:59 Nystatin Cream 15 Gm Tube TOPICAL Not Given BID [facility] Protocol Ondansetron HCl 4 mg 07/23/20 16:51 07/23/20 17:29 Ondansetron Odt 4 Mg Tab.Rapdis TRANSLINGU 4 mg Q12H PRN Administration Nausea Oxycodone HCl 15 mg 07/23/20 08:00 08/03/20 05:08 Oxycodone Hcl Immed Release 15 Mg Tablet PO 15 mg Q4H [facility] Administration Polyethylene Glycol 17 gm 07/25/20 20:48 08/02/20 09:33 Polyethylene Glycol 3350 17 Gm Powd.Pack PO 17 gm BID PRN Administration Constipation Psyllium Hydrophilic Mucilloid 3.4 gm 08/02/20 21:00 08/02/20 22:59 Psyllium Seed 3.4 Gm Powd.Pack PO 3.4 gm BID PATEL Administration Sodium Biphosphate/Sodium Phosphate 133 ml 07/26/20 10:58 07/26/20 17:25 Sodium Phosphate,[place]-Dibasic [address] 133 ml ONCE PRN Administration contipation Sodium Biphosphate/Sodium Phosphate 133 ml 07/26/20 18:00 Sodium Phosphate,[place]-Dibasic [address] ONCE PRN Constipation Zolpidem Tartrate 5 mg 08/01/20 21:00 08/02/20 22:59 Zolpidem Tartrate 5 Mg Tablet PO 5 mg BEDTIME PATEL Administration Allergies Allergies Allergy/AdvReac Type Severity Reaction Status Date / Time Penicillins Allergy Mild RASH Unverified 10/29/19 17:20 Sulfa (Sulfonamide Allergy Unknown UNKNOWN Unverified 10/29/19 17:20 Antibiotics) Assessment & Plan Assessment & Plan (1) Unspecified skin changes: Status: Acute Code(s): R23.9 - Unspecified skin changes Assessment and Plan: 80-year-old female without significant risk factor for pressure ulcer. Mobility is excellent. Nutrition is excellent. There is no open wound. Recommend continued use of zinc oxide to protect friable tissue which may have been a former wound deep within the gluteal cleft. No evidence of abscess. Continue with good hygiene. 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 Plan: D/C Lexapro Re-start Cymbalta 20 mg po qam Greater than 50% of the session was spent on counseling and/or coordination of care Reason for contiued inpatient stay Substantial Risk for: inability to function, rapid decompensation and med/psych decompensation
[2020-08-03] MEDS: Insulin Glargine,Hum.rec.anlog 100 UNIT/ML 10 ML VIAL 14 UNIT SUBCUT (09:28)
[2020-08-03 09:34] VITALS: BP 151/70; PULSE 60
[2020-08-03] MEDS: atenoloL 50 MG TABLET PO (09:34)
[2020-08-03] MEDS: Escitalopram Oxalate 5 MG TABLET PO (09:38)
[2020-08-03] MEDS: clonazePAM 0.5 MG TABLET PO ×3 (10:18→19:57)
--- NOTE | 2020-08-03 11:24 | MHC.CLN ---
NUTRITION FOLLOW UP WOUND CONSULT INDICATES FORMER WOUND NOW FULLY EPITHELIALIZED, NO REDNESS, NO OPEN WOUND. PER GI CONSULT, RECOMMENDS HIGH FIBER DIET AND ADDING METAMUCIL. METAMUCIL ORDERED. PROVIDED PATIENT WITH HANDOUT ABOUT INCREASING DIETARY FIBER. WILL TAKE HOME AND SHARE WITH CAREGIVER. ASKED ABOUT REPORTED CHEWING DIFFICULTY. STATED ISSUES WITH TWO BACK TEETH THAT BOTHER HER WITH TOUGH FOOD. STATED THAT FOOD HERE IS NOT TOUGH AND IS SELECTING SOFTER FOODS. LIKES CHOCOLATE ONLY FOR ENSURE AND NOTIFIED KITCHEN. NUTRITION RISK LEVEL IS NOW LEVEL 2.
[2020-08-03 13:18] LABS: Glucose, Whole Blood 104 mg/dL (60-115)
[2020-08-03 18:00] VITALS: BP 134/60; PULSE 58; RESP 16; TEMP 36.1; O2SAT 97
[2020-08-03] MEDS: Docusate Sodium 100 MG CAPSULE PO (19:57)
[2020-08-03] MEDS: glipiZIDE 5 MG TABLET PO (20:00)
[2020-08-03 20:15] LABS: Glucose, Whole Blood 199 mg/dL (60-115)
[2020-08-04] VITALS (9 sets, daily range): BP systolic 130–195; BP diastolic 60–76; PULSE 55–70; RESP 12–16; TEMP 36.1–37.1; O2SAT 95–97; BMI 26.1
[2020-08-04] MEDS: Melatonin 3 MG TABLET 6 MG PO ×2 (00:20→23:53)
[2020-08-04] MEDS: Zolpidem Tartrate 5 MG TABLET PO ×2 (00:20→23:53)
[2020-08-04] MEDS: Artificial Tears 15 ML DROPS 2 DROP EYE-BOTH ×3 (00:23→20:47)
[2020-08-04] MEDS: Simethicone 80 MG TAB.CHEW PO ×2 (00:31→09:50)
[2020-08-04] MEDS: Acetaminophen 325 MG TABLET 650 MG PO ×2 (04:08→13:52)
[2020-08-04] MEDS: oxyCODONE HCl Immed Release 15 MG TABLET PO ×4 (04:09→20:43)
--- NOTE | 2020-08-04 05:55 | PC.NURSE ---
Addendum entered by Monty Guzman 08/04/20 06:00: PT was complaining of abdominal pain earlier in the shift. PT then received Colace to help create a BM and Simethicone to get some gas relief. PT later had a large BM and reported much relief. Original Note: PT was complaining of abdominal pain earlier in the shift. PT received Colace and Simethicone to help create a BM and get some gas relief.
[2020-08-04] MEDS: clonazePAM 0.5 MG TABLET PO ×3 (06:58→20:44)
[2020-08-04] MEDS: Insulin Glargine,Hum.rec.anlog 100 UNIT/ML 10 ML VIAL 14 UNIT SUBCUT (08:21)
[2020-08-04] MEDS: DULoxetine HCl 20 MG CAPSULE.DR PO (08:22)
[2020-08-04] MEDS: glipiZIDE 10 MG TABLET PO (08:23)
[2020-08-04] MEDS: atenoloL 50 MG TABLET PO (08:23)
[2020-08-04 09:21] LABS: Glucose, Whole Blood 120 mg/dL (60-115)
[2020-08-04] MEDS: cloNIDine HCL 0.1 MG TABLET PO (10:11)
[2020-08-04 11:15] LABS: Glucose, Whole Blood 129 mg/dL (60-115)
[2020-08-04] MEDS: polyethylene glycoL 3350 17 GM POWD.PACK PO (13:52)
[2020-08-04] MEDS: Docusate Sodium 100 MG CAPSULE PO (13:52)
--- NOTE | 2020-08-04 14:43 | HO.PM.IMPN ---
Subjective Subjective Date of Service: 08/04/20 Interval History: asked to see the patient for increased BP and associated headaches. Pt seen and examined on the [facility] unit. She endorses daily morning MCKEON. In regards to her antihypertensive history -- she tells me that she was on atenolol twice daily in the past but unsure what does. She does not recall any other antihypertensives She denies any chest pain, shortness of breath or dizziness. Physical Exam Vital Signs: Vital Signs: Last Vital Signs Temp 97.9 F 08/04/20 06:00 Pulse 55 08/04/20 13:47 Resp 16 08/04/20 10:52 BP 135/64 08/04/20 13:47 Pulse Ox 97 08/04/20 13:47 Body Mass Index 26.3 Const: Other: General - no acute distress, appears comfortable Cardiovascular - regular rate and rhythm, S1-S2 Lungs - normal respiratory effort, clear to auscultation bilaterally, no wheezing Abdomen - soft, nontender, no rebound or guarding Extremities - no edema bilaterally Neuro - awake and alert, no focal deficits Objective Data Current Medications Generic Name Dose Route Start Last Admin Trade Name Freq PRN Reason Stop Dose Admin Acetaminophen 650 mg 07/22/20 23:50 08/04/20 13:52 Acetaminophen 325 Mg Tablet PO 650 mg Q6H PRN Administration Headache/Pain Mild Scale (1-3) Al Hydroxide/Mg Hydroxide 30 ml 07/22/20 23:50 Magnesium Hydrox/Alum Hydrox 30 Ml Oral.Susp PO Q6H PRN Heartburn/Nausea Artificial Tears 2 drop 07/25/20 11:54 08/04/20 09:50 Artificial Tears 15 Ml Drops EYE-BOTH 2 drop Q4H PRN Administration Dry Eyes Atenolol 50 mg 07/23/20 09:00 08/04/20 08:23 Atenolol 50 Mg Tablet PO 50 mg DAILY PATEL Administration Protocol Clonazepam 0.5 mg 07/23/20 14:43 08/04/20 13:52 Clonazepam 0.5 Mg Tablet PO 0.5 mg TID PRN Administration Anxiety Docusate Sodium 100 mg 07/27/20 12:26 08/04/20 13:52 Docusate Sodium 100 Mg Capsule PO 100 mg BID PRN Administration contipation Duloxetine HCl 20 mg 08/04/20 09:00 08/04/20 08:22 Duloxetine Hcl 20 Mg Capsule.Dr PO 20 mg DAILY PATEL Administration Glipizide 10 mg 07/23/20 07:30 08/04/20 08:23 Glipizide 10 Mg Tablet PO 10 mg DAILY@0730 PATEL Administration Glipizide 5 mg 07/23/20 17:00 08/03/20 20:00 Glipizide 5 Mg Tablet PO 5 mg DAILY@1700 PATEL Administration Insulin Glargine 14 unit 07/26/20 09:00 08/04/20 08:21 Insulin Glargine,Hum.Rec.Anlog 100 Unit/Ml 10 Ml Vial SUBCUT 14 unit DAILY PATEL Administration Magnesium Hydroxide 30 ml 07/22/20 23:50 Milk Of Magnesia 30 Ml Oral.Susp PO DAILY PRN Constipation Melatonin 6 mg 08/02/20 21:00 08/04/20 00:20 Melatonin 3 Mg Tablet PO 6 mg BEDTIME [facility] Administration Non-Formulary Medication 12.5 mg 08/05/20 09:00 Movantik PO DAILY [facility] Nystatin 1 appl 07/25/20 21:00 08/04/20 10:01 Nystatin Cream 15 Gm Tube TOPICAL Not Given BID [facility] Protocol Ondansetron HCl 4 mg 07/23/20 16:51 07/23/20 17:29 Ondansetron Odt 4 Mg Tab.Rapdis TRANSLINGU 4 mg Q12H PRN Administration Nausea Oxycodone HCl 15 mg 07/23/20 08:00 08/04/20 13:51 Oxycodone Hcl Immed Release 15 Mg Tablet PO Not Given Q4H [facility] Polyethylene Glycol 17 gm 07/25/20 20:48 08/04/20 13:52 Polyethylene Glycol 3350 17 Gm Powd.Pack PO 17 gm BID PRN Administration Constipation Psyllium Hydrophilic Mucilloid 3.4 gm 08/02/20 21:00 08/04/20 08:21 Psyllium Seed 3.4 Gm Powd.Pack PO 3.4 gm BID [facility] Administration Simethicone 80 mg 08/04/20 00:11 08/04/20 09:50 Simethicone 80 Mg Tab.Chew PO 08/10/20 23:59 80 mg Q6H PRN Administration Gas Sodium Biphosphate/Sodium Phosphate 133 ml 07/26/20 10:58 06/15/21 17:25 Sodium Phosphate,[place]-Dibasic 133 Ml Enema [place] 133 ml ONCE PRN Administration contipation Sodium Biphosphate/Sodium Phosphate 133 ml 07/26/20 18:00 Sodium Phosphate,[place]-Dibasic 133 Ml Enema [place] ONCE PRN Constipation Zolpidem Tartrate 5 mg 08/01/20 21:00 08/04/20 00:20 Zolpidem Tartrate 5 Mg Tablet PO 5 mg BEDTIME PATEL Administration Labs CBC & Chem 7: 08/03/20 06:35 08/03/20 06:35 Labs: Laboratory Results - last 24 hr 08/03/20 08/04/20 08/04/20 20:08 08:20 11:09 POC Glucose 199 H 120 H 129 H Quality Stroke Does the patient have a stroke diagnosis?: No VTE Prior VTE?: No VTE Risk Level:: Medical - low VTE Device Contraindication: Treatment Not Indicated VTE Drug Contraindication: Treatment Not Indicated Assessment and Plan (1) HTN (hypertension): Status: Acute Assessment and Plan: This is a 80 yo F with a PMH of HTN, DM who is admitted to the [facility]. Medical services reconsulted for BP management. 1. Uncontrolled DM On atenolol 50mg daily. She endorses that she was on BID dosing previously, but does not recall her dose. Nonetheless, give her low normal HR, will avoid uptitrating his beta-blockers. Given her history of DM, will start low dose DEV inhibitors. She should have a BMP checked next week (ordered for next Saturday). If she is discharged before then, please ensure that this is done on an outpatient basis. Continue her other psych care.
--- NOTE | 2020-08-04 14:54 | HO.PSYCHPN ---
Subjective Subjective Date of Service: 08/04/20 Reason For Visit: Depression and anxiety Interim History: The patient complained of side effects with Cymbalta AM, again, she is very somatically preocupied. Her BP was high at AM so I added 1 time of Clonidine. Hospitalist reassed her and suggested adding LIsinopril for nefroprotection. Mental Status Exam Mental Status Exam Patient Appearance: Well Grooomed Patient Orientation: Person, Place, Time and Situation Level of Consciousness: Awake Patient Behavior: Dependent Mood Description: Withdrawn Affect Description: Constricted Patient Cognition Impaired: No Ability to Follow Directions: Good Speech Pattern: Clear Hallucinations: None Delusions: Not Present Thought Process: Goal Oriented Thought Content: positive for Obsessional Thoughts and positive for Poverty of Content Judgement: Fair Diagnostics Vital Signs (24Hr): Vital Signs - 24 hr 08/03/20 18:00 08/04/20 06:00 08/04/20 08:23 Temperature 96.9 F 97.9 F Pulse Rate 58 58 65 Respiratory Rate 16 12 Blood Pressure 134/60 166/72 H 178/76 H Pulse Oximetry 97 97 08/04/20 09:54 08/04/20 10:11 08/04/20 10:52 Temperature Pulse Rate 59 59 57 Respiratory Rate 16 Blood Pressure 195/75 H 195/75 H 162/74 H Pulse Oximetry 97 97 08/04/20 13:47 Temperature Pulse Rate 55 Respiratory Rate Blood Pressure 135/64 Pulse Oximetry 97 Body Mass Index 26.3 Labs Results: 08/03/20 06:35 08/03/20 06:35 Labs: Laboratory Results - last 48 hr 08/02/20 08/02/20 08/03/20 16:39 20:39 06:35 WBC 7.9 RBC 3.63 L Hgb 11.6 L Hct 34.9 L MCV 96.1 MCH 32.0 MCHC 33.2 RDW 11.6 Plt Count 248 MPV 10.2 Immature Gran % (Auto) 0.1 Neut % (Auto) 47.0 Lymph % (Auto) 40.7 H Saunders % (Auto) 9.9 Eos % (Auto) 1.8 Baso % (Auto) 0.5 Lymph # (Auto) 3.2 Saunders # (Auto) 0.8 Eos # (Auto) 0.1 Baso # (Auto) 0.0 Abs Immat Gran (auto) 0.01 Absolute Neuts (auto) 3.7 Absolute Nucleated RBC 0.000 Nucleated RBC % (auto) 0.0 Sodium Potassium Chloride Carbon Dioxide Anion Gap BUN Creatinine Estim Creat Clear Calc Estimated GFR POC Glucose 136 H 194 H Fasting Glucose Calcium TSH 08/03/20 08/03/20 08/03/20 06:35 08:06 12:52 WBC RBC Hgb Hct MCV MCH MCHC RDW Plt Count MPV Immature Gran % (Auto) Neut % (Auto) Lymph % (Auto) Saunders % (Auto) Eos % (Auto) Baso % (Auto) Lymph # (Auto) Saunders # (Auto) Eos # (Auto) Baso # (Auto) Abs Immat Gran (auto) Absolute Neuts (auto) Absolute Nucleated RBC Nucleated RBC % (auto) Sodium 139 Potassium 3.6 Chloride 104 Carbon Dioxide 28 Anion Gap 11 L BUN 14 Creatinine 0.76 Estim Creat Clear Calc 55.3 Estimated GFR > 60 POC Glucose 91 104 Fasting Glucose 106 H Calcium 9.4 TSH 0.48 08/03/20 08/04/20 08/04/20 20:08 08:20 11:09 WBC RBC Hgb Hct MCV MCH MCHC RDW Plt Count MPV Immature Gran % (Auto) Neut % (Auto) Lymph % (Auto) Saunders % (Auto) Eos % (Auto) Baso % (Auto) Lymph # (Auto) Saunders # (Auto) Eos # (Auto) Baso # (Auto) Abs Immat Gran (auto) Absolute Neuts (auto) Absolute Nucleated RBC Nucleated RBC % (auto) Sodium Potassium Chloride Carbon Dioxide Anion Gap BUN Creatinine Estim Creat Clear Calc Estimated GFR POC Glucose 199 H 120 H 129 H Fasting Glucose Calcium TSH Imaging Radiology Impressions: ITS Impressions KUB X-Ray 07/26/20 20:15 IMPRESSION: Moderate stool burden. No obstruction. KUB X-Ray 08/03/20 13:00 IMPRESSION: 1. Nonobstructive bowel gas pattern. 2. Mild to moderate colonic stool burden appears mildly decreased. Medications Medications Current Medications Generic Name Dose Route Start Last Admin Trade Name Freq PRN Reason Stop Dose Admin Acetaminophen 650 mg 07/22/20 23:50 08/04/20 13:52 Acetaminophen 325 Mg Tablet PO 650 mg Q6H PRN Administration Headache/Pain Mild Scale (1-3) Al Hydroxide/Mg Hydroxide 30 ml 07/22/20 23:50 Magnesium Hydrox/Alum Hydrox 30 Ml Oral.Susp PO Q6H PRN Heartburn/Nausea Artificial Tears 2 drop 07/25/20 11:54 08/04/20 09:50 Artificial Tears 15 Ml Drops EYE-BOTH 2 drop Q4H PRN Administration Dry Eyes Atenolol 50 mg 07/23/20 09:00 08/04/20 08:23 Atenolol 50 Mg Tablet PO 50 mg DAILY [facility] Administration Protocol Clonazepam 0.5 mg 07/23/20 14:43 08/04/20 13:52 Clonazepam 0.5 Mg Tablet PO 0.5 mg TID PRN Administration Anxiety Docusate Sodium 100 mg 07/27/20 12:26 08/04/20 13:52 Docusate Sodium 100 Mg Capsule PO 100 mg BID PRN Administration contipation Duloxetine HCl 20 mg 08/04/20 09:00 08/04/20 08:22 Duloxetine Hcl 20 Mg Capsule.Dr PO 20 mg DAILY [facility] Administration Glipizide 10 mg 07/23/20 07:30 08/04/20 08:23 Glipizide 10 Mg Tablet PO 10 mg DAILY@0730 [facility] Administration Glipizide 5 mg 07/23/20 17:00 08/03/20 20:00 Glipizide 5 Mg Tablet PO 5 mg DAILY@1700 [facility] Administration Insulin Glargine 14 unit 07/26/20 09:00 08/04/20 08:21 Insulin Glargine,Hum.Rec.Anlog 100 Unit/Ml 10 Ml Vial SUBCUT 14 unit DAILY [facility] Administration Lisinopril 10 mg 08/04/20 20:00 Lisinopril 10 Mg Tablet PO DAILY@2000 [facility] Protocol Magnesium Hydroxide 30 ml 07/22/20 23:50 Milk Of Magnesia 30 Ml Oral.Susp PO DAILY PRN Constipation Melatonin 6 mg 08/02/20 21:00 08/04/20 00:20 Melatonin 3 Mg Tablet PO 6 mg BEDTIME [facility] Administration Non-Formulary Medication 12.5 mg 08/05/20 09:00 Movantik PO DAILY [facility] Nystatin 1 appl 07/25/20 21:00 08/04/20 10:01 Nystatin Cream 15 Gm Tube TOPICAL Not Given BID [facility] Protocol Ondansetron HCl 4 mg 07/23/20 16:51 06/12/21 17:29 Ondansetron Odt 4 Mg Tab.Rapdis TRANSLINGU 4 mg Q12H PRN Administration Nausea Oxycodone HCl 15 mg 07/23/20 08:00 08/04/20 13:51 Oxycodone Hcl Immed Release 15 Mg Tablet PO Not Given Q4H [facility] Polyethylene Glycol 17 gm 07/25/20 20:48 08/04/20 13:52 Polyethylene Glycol 3350 17 Gm Powd.Pack PO 17 gm BID PRN Administration Constipation Psyllium Hydrophilic Mucilloid 3.4 gm 08/02/20 21:00 08/04/20 08:21 Psyllium Seed 3.4 Gm Powd.Pack PO 3.4 gm BID [facility] Administration Simethicone 80 mg 08/04/20 00:11 08/04/20 09:50 Simethicone 80 Mg Tab.Chew PO 08/10/20 23:59 80 mg Q6H PRN Administration Gas Sodium Biphosphate/Sodium Phosphate 133 ml 07/26/20 10:58 07/26/20 17:25 Sodium Phosphate,[place]-Dibasic 133 Ml Enema [place] 133 ml ONCE PRN Administration contipation Sodium Biphosphate/Sodium Phosphate 133 ml 07/26/20 18:00 Sodium Phosphate,[place]-Dibasic 133 Ml Enema [place] ONCE PRN Constipation Zolpidem Tartrate 5 mg 08/01/20 21:00 08/04/20 00:20 Zolpidem Tartrate 5 Mg Tablet PO 5 mg BEDTIME [facility] Administration Allergies Allergies Allergy/AdvReac Type Severity Reaction Status Date / Time Penicillins Allergy Mild RASH Unverified 10/29/19 17:20 Sulfa (Sulfonamide Allergy Unknown UNKNOWN Unverified 10/29/19 17:20 Antibiotics) Assessment & Plan Assessment & Plan (1) HTN (hypertension): Status: Acute Code(s): I10 - Essential (primary) hypertension (2) Major depressive disorder, recurrent severe without psychotic features: Status: Acute Code(s): F33.2 - Major depressive disorder, recurrent severe without psychotic features Assessment and Plan: This is a 80 yo F with a PMH of HTN, DM who is admitted to the [facility]. Medical services reconsulted for BP management. 1. Uncontrolled DM On atenolol 50mg daily. She endorses that she was on BID dosing previously, but does not recall her dose. Nonetheless, give her low normal HR, will avoid uptitrating his beta-blockers. Given her history of DM, will start low dose DEV inhibitors. She should have a BMP checked next week (ordered for next Saturday). If she is discharged before then, please ensure that this is done on an outpatient basis. Continue her other psych care. 2. Antidepressant treatment. Stop Cymbalta for alleged side effect Greater than 50% of the session was spent on counseling and/or coordination of care Reason for contiued inpatient stay Substantial Risk for: inability to function, rapid decompensation and med/psych decompensation
[2020-08-04 16:28] LABS: Glucose, Whole Blood 188 mg/dL (60-115)
[2020-08-04] MEDS: glipiZIDE 5 MG TABLET PO (16:50)
[2020-08-04 20:38] LABS: Glucose, Whole Blood 211 mg/dL (60-115)
[2020-08-04] MEDS: lisinopriL 10 MG TABLET PO (20:44)
[2020-08-05] MEDS: oxyCODONE HCl Immed Release 15 MG TABLET PO ×3 (05:36→19:55)
[2020-08-05] MEDS: Acetaminophen 325 MG TABLET 650 MG PO ×2 (05:36→21:59)
[2020-08-05] MEDS: Artificial Tears 15 ML DROPS 2 DROP EYE-BOTH (05:40)
[2020-08-05 07:49] LABS: Glucose, Whole Blood 103 mg/dL (60-115)
[2020-08-05] MEDS: glipiZIDE 10 MG TABLET PO (07:55)
[2020-08-05 08:31] VITALS: BP 100/53; PULSE 71; TEMP 36.9; O2SAT 95
[2020-08-05] MEDS: clonazePAM 0.5 MG TABLET PO ×3 (08:38→19:54)
[2020-08-05 08:41] VITALS: BP 100/53
[2020-08-05] MEDS: Docusate Sodium 100 MG CAPSULE PO (08:42)
[2020-08-05 10:31] LABS: Glucose, Whole Blood 65 mg/dL (60-115)
[2020-08-05] MEDS: Insulin Glargine,Hum.rec.anlog 100 UNIT/ML 10 ML VIAL 14 UNIT SUBCUT (10:31)
[2020-08-05 12:01] LABS: Glucose, Whole Blood 81 mg/dL (60-115)
--- NOTE | 2020-08-05 14:22 | HO.PSYCHPN ---
Subjective Subjective Date of Service: 08/05/20 Reason For Visit: Depression and anxiety Subjective Notes: Conditional Voluntary Interim History: The patient reported that her BP was too low after lisinopril was started. We discussed different therapeutic options and she agreed to start a low dose of Nortriptilyne at hs. Medication Compliance: Yes Review of Systems Acute medical concerns: No Medical Review of Systems: unchanged Mental Status Exam Mental Status Exam Patient Appearance: Well Grooomed and Appropriate Patient Orientation: Person, Place, Time and Situation Level of Consciousness: Awake Patient Behavior: Appropriate, Cooperative and Anxious Mood Description: Calm and Withdrawn Affect Description: Constricted and Anxious Patient Cognition Impaired: No Ability to Follow Directions: Good Speech Pattern: Clear Memory Description: Intact Hallucinations: None Delusions: Not Present Thought Process: Linear Thought Content: positive for Obsessional Thoughts, positive for Poverty of Content and positive for Preoccupation Depressive Symptoms: Increased Anxiety and Insomnia Judgement: Fair Diagnostics Vital Signs (24Hr): Vital Signs - 24 hr 08/04/20 19:47 08/04/20 20:32 08/04/20 20:44 Temperature 98.7 F 97 F Pulse Rate 70 68 68 Respiratory Rate 16 Blood Pressure 130/60 185/72 H 185/72 H Pulse Oximetry 95 97 08/05/20 08:31 08/05/20 08:41 Temperature 98.4 F Pulse Rate 71 Respiratory Rate Blood Pressure 100/53 L 100/53 L Pulse Oximetry 95 Body Mass Index 26.1 Labs Results: 08/03/20 06:35 08/03/20 06:35 Labs: Laboratory Results - last 48 hr 08/03/20 08/04/20 08/04/20 20:08 08:20 11:09 POC Glucose 199 H 120 H 129 H 08/04/20 08/04/20 08/05/20 16:21 20:35 07:44 POC Glucose 188 H 211 H 103 08/05/20 08/05/20 10:26 11:34 POC Glucose 65 81 Imaging Radiology Impressions: ITS Impressions KUB X-Ray 07/26/20 20:15 IMPRESSION: Moderate stool burden. No obstruction. KUB X-Ray 08/03/20 13:00 IMPRESSION: 1. Nonobstructive bowel gas pattern. 2. Mild to moderate colonic stool burden appears mildly decreased. Medications Medications Current Medications Generic Name Dose Route Start Last Admin Trade Name Freq PRN Reason Stop Dose Admin Acetaminophen 650 mg 07/22/20 23:50 08/05/20 05:36 Acetaminophen 325 Mg Tablet PO 650 mg Q6H PRN Administration Headache/Pain Mild Scale (1-3) Al Hydroxide/Mg Hydroxide 30 ml 07/22/20 23:50 Magnesium Hydrox/Alum Hydrox 30 Ml Oral.Susp PO Q6H PRN Heartburn/Nausea Artificial Tears 2 drop 07/25/20 11:54 08/05/20 05:40 Artificial Tears 15 Ml Drops EYE-BOTH 2 drop Q4H PRN Administration Dry Eyes Atenolol 50 mg 07/23/20 09:00 08/05/20 08:41 Atenolol 50 Mg Tablet PO Not Given DAILY [facility] Protocol Clonazepam 0.5 mg 07/23/20 14:43 08/05/20 08:38 Clonazepam 0.5 Mg Tablet PO 0.5 mg TID PRN Administration Anxiety Docusate Sodium 100 mg 07/27/20 12:26 08/05/20 08:42 Docusate Sodium 100 Mg Capsule PO 100 mg BID PRN Administration contipation Glipizide 10 mg 07/23/20 07:30 08/05/20 07:55 Glipizide 10 Mg Tablet PO 10 mg DAILY@0730 [facility] Administration Glipizide 5 mg 07/23/20 17:00 08/04/20 16:50 Glipizide 5 Mg Tablet PO 5 mg DAILY@1700 [facility] Administration Insulin Glargine 14 unit 07/26/20 09:00 08/05/20 10:31 Insulin Glargine,Hum.Rec.Anlog 100 Unit/Ml 10 Ml Vial SUBCUT 14 unit DAILY [facility] Administration Lisinopril 10 mg 08/04/20 20:00 08/04/20 20:44 Lisinopril 10 Mg Tablet PO 10 mg DAILY@2000 [facility] Administration Protocol Magnesium Hydroxide 30 ml 07/22/20 23:50 Milk Of Magnesia 30 Ml Oral.Susp PO DAILY PRN Constipation Melatonin 6 mg 08/02/20 21:00 08/04/20 23:53 Melatonin 3 Mg Tablet PO 6 mg BEDTIME [facility] Administration Non-Formulary Medication 12.5 mg 08/05/20 09:00 Movantik PO DAILY [facility] Nortriptyline HCl 10 mg 08/05/20 21:00 Nortriptyline Hcl 10 Mg Capsule PO BEDTIME [facility] Nystatin 1 appl 07/25/20 21:00 08/04/20 20:47 Nystatin Cream 15 Gm Tube TOPICAL Not Given BID [facility] Protocol Ondansetron HCl 4 mg 07/23/20 16:51 07/23/20 17:29 Ondansetron Odt 4 Mg Tab.Rapdis TRANSLINGU 4 mg Q12H PRN Administration Nausea Oxycodone HCl 15 mg 07/23/20 08:00 08/05/20 11:36 Oxycodone Hcl Immed Release 15 Mg Tablet PO 15 mg Q4H [facility] Administration Polyethylene Glycol 17 gm 07/25/20 20:48 08/04/20 13:52 Polyethylene Glycol 3350 17 Gm Powd.Pack PO 17 gm BID PRN Administration Constipation Psyllium Hydrophilic Mucilloid 3.4 gm 08/02/20 21:00 08/05/20 11:51 Psyllium Seed 3.4 Gm Powd.Pack PO 3.4 gm BID [facility] Administration Simethicone 80 mg 08/04/20 00:11 08/04/20 09:50 Simethicone 80 Mg Tab.Chew PO 08/10/20 23:59 80 mg Q6H PRN Administration Gas Sodium Biphosphate/Sodium Phosphate 133 ml 07/26/20 10:58 07/26/20 17:25 Sodium Phosphate,[place]-Dibasic 133 Ml Enema [place] 133 ml ONCE PRN Administration contipation Sodium Biphosphate/Sodium Phosphate 133 ml 07/26/20 18:00 Sodium Phosphate,[place]-Dibasic 133 Ml Enema ND ONCE PRN Constipation Zolpidem Tartrate 5 mg 08/01/20 21:00 08/04/20 23:53 Zolpidem Tartrate 5 Mg Tablet PO 5 mg BEDTIME [facility] Administration Allergies Allergies Allergy/AdvReac Type Severity Reaction Status Date / Time Penicillins Allergy Mild RASH Unverified 10/29/19 17:20 Sulfa (Sulfonamide Allergy Unknown UNKNOWN Unverified 10/29/19 17:20 Antibiotics) Assessment & Plan Assessment & Plan (1) HTN (hypertension): Status: Acute Code(s): I10 - Essential (primary) hypertension (2) Major depressive disorder, recurrent severe without psychotic features: Status: Acute Code(s): F33.2 - Major depressive disorder, recurrent severe without psychotic features Assessment and Plan: This is a 80 yo F with a PMH of HTN, DM who is admitted to the [facility]. Medical services reconsulted for BP management. 1. Uncontrolled DM On atenolol 50mg daily. She endorses that she was on BID dosing previously, but does not recall her dose. Nonetheless, give her low normal HR, will avoid uptitrating his beta-blockers. Given her history of DM, will start low dose DEV inhibitors. She should have a BMP checked next week (ordered for next Saturday). If she is discharged before then, please ensure that this is done on an outpatient basis. Continue her other psych care. 2. Antidepressant treatment. Stop Cymbalta for alleged side effects Start Nortriptilyne 10 mg p qhs 3. HTN Lower Lisinpril to 5 mg po qhs Greater than 50% of the session was spent on counseling and/or coordination of care Reason for contiued inpatient stay Substantial Risk for: inability to function, rapid decompensation and med/psych decompensation
[2020-08-05] MEDS: glipiZIDE 5 MG TABLET PO (16:37)
[2020-08-05 16:55] LABS: Glucose, Whole Blood 175 mg/dL (60-115)
[2020-08-05 18:24] VITALS: BP 148/65; PULSE 83; TEMP 36; O2SAT 98
[2020-08-05] MEDS: Nystatin Cream 15 GM TUBE 1 APPL TOPICAL (19:30)
--- NOTE | 2020-08-05 19:43 | PC.NURSE ---
Patient has been perseverating about bowels. She reported she had a formed bowel movement on 08/03/20. This evening she had another formed bowel movement. It happened very quickly and the patient was quite anxious regarding the fact that it was in her underwear.
[2020-08-05 20:01] VITALS: BP 144/61; PULSE 80; RESP 18; TEMP 36.4; O2SAT 97
[2020-08-05] MEDS: Nortriptyline HCl 10 MG CAPSULE PO (20:03)
[2020-08-05] MEDS: lisinopriL 5 MG TABLET PO (20:03)
[2020-08-05] MEDS: Melatonin 3 MG TABLET 6 MG PO (20:03)
[2020-08-05 20:52] LABS: Glucose, Whole Blood 211 mg/dL (60-115)
[2020-08-05] MEDS: Zolpidem Tartrate 5 MG TABLET PO (21:59)
[2020-08-06] MEDS: oxyCODONE HCl Immed Release 15 MG TABLET PO ×5 (00:41→22:00)
[2020-08-06 06:00] VITALS: BP 152/69; PULSE 77; RESP 18; TEMP 36.2; O2SAT 96
[2020-08-06] MEDS: Acetaminophen 325 MG TABLET 650 MG PO (06:03)
[2020-08-06] MEDS: clonazePAM 0.5 MG TABLET PO ×3 (06:12→22:00)
[2020-08-06 06:14] LABS: Glucose, Whole Blood 127 mg/dL (60-115)
[2020-08-06 08:01] LABS: Glucose, Whole Blood 152 mg/dL (60-115)
[2020-08-06] MEDS: atenoloL 50 MG TABLET PO (08:22)
[2020-08-06] MEDS: glipiZIDE 10 MG TABLET PO (08:55)
[2020-08-06] MEDS: Insulin Glargine,Hum.rec.anlog 100 UNIT/ML 10 ML VIAL 14 UNIT SUBCUT (09:13)
[2020-08-06 11:45] LABS: Glucose, Whole Blood 87 mg/dL (60-115)
--- NOTE | 2020-08-06 12:18 | HO.PSYCHPN ---
Subjective Subjective Date of Service: 08/07/20 Reason For Visit: Depression and anxiety Interim History: Pt continues to present as very somatically preoccupied, draws attention from others by her multiple somatic concerns. Some which are in fact happening but pt experiences them as catastrophic and demands immediate attention to chronic, non life threatening health concerns. Pt reports she is sleeping well. She reports some relief from antidepressant and warns this singer songwriter so far no side effects, but we'll see. Pt with difficulty ended conversation and looking for additional concerns to keep this singer songwriter engage in interview. She denies SI/HI. Review of Systems Review of Systems Constitutional : No Weight loss, No Fever, No Chills ENT/Mouth : No sore throat, No Rhinorrhea Eyes: No Swelling, No Redness Cardiovascular : No Chest Pain, No SOB, No Edema Respiratory : No Cough, No Sputum, No Wheezing Gastrointestinal : see HPI Genitourinary : NO Dysuria, No Urinary Frequency, No Hematuria, No Urgency Musculoskeletal : + joint pain, + Myalgias, No Joint Swelling Skin : No Skin Lesions, No rash Neuro : No Weakness, No Numbness, No Dizziness, No Headache Psych : ++ Depression Heme/Lymph: No Bruising, No Lymphadenopathy Endocrine : No Polyuria, No Polydipsia All other systems reviewed and are negative. Yes all other systems are reviewed and are negative Cardiovascular: Reports no additional cardiovascular complaints Respiratory: Reports no additional respiratory complaints Mental Status Exam Mental Status Exam Narrative: Appearance: casually groomed, fair hygiene, in NAD Behavior: calm, cooperative Psychomotor: no agitation or retardation noted Speech: clear, normal rate/rhythm/volume, spontaneous TP: linear TC: no signs of psychosis, somatic concerns Mood: okay Affect:somewhat blunted SI:denies HI:denies AH/VH:none Delusions:none Insight/judgment:fair x 2. Memory/cog: alert, oriented x 2. grossly intact to conversational testing. Diagnostics Vital Signs (24Hr): Vital Signs - 24 hr 08/06/20 18:00 08/06/20 19:57 08/07/20 05:29 Temperature 98.4 F 98.5 F Pulse Rate 67 66 60 Respiratory Rate 18 Blood Pressure 140/64 H 158/69 H 147/67 H Pulse Oximetry 99 98 Body Mass Index 26.1 Labs Results: 08/03/20 06:35 08/03/20 06:35 Labs: Laboratory Results - last 48 hr 08/05/20 08/05/20 08/06/20 16:51 20:03 06:08 POC Glucose 175 H 211 H 127 H 08/06/20 08/06/20 08/06/20 07:47 11:41 16:33 POC Glucose 152 H 87 204 H 08/06/20 08/07/20 08/07/20 21:57 08:44 11:30 POC Glucose 134 H 165 H 64 Imaging Radiology Impressions: ITS Impressions KUB X-Ray 07/26/20 20:15 IMPRESSION: Moderate stool burden. No obstruction. KUB X-Ray 08/03/20 13:00 IMPRESSION: 1. Nonobstructive bowel gas pattern. 2. Mild to moderate colonic stool burden appears mildly decreased. Medications Medications Current Medications Generic Name Dose Route Start Last Admin Trade Name Freq PRN Reason Stop Dose Admin Acetaminophen 650 mg 07/22/20 23:50 08/07/20 10:02 Acetaminophen 325 Mg Tablet PO 650 mg Q6H PRN Administration Headache/Pain Mild Scale (1-3) Al Hydroxide/Mg Hydroxide 30 ml 07/22/20 23:50 Magnesium Hydrox/Alum Hydrox 30 Ml Oral.Susp PO Q6H PRN Heartburn/Nausea Artificial Tears 2 drop 07/25/20 11:54 08/07/20 05:54 Artificial Tears 15 Ml Drops EYE-BOTH 2 drop Q4H PRN Administration Dry Eyes Atenolol 50 mg 07/23/20 09:00 08/07/20 08:45 Atenolol 50 Mg Tablet PO 50 mg DAILY [facility] Administration Protocol Clonazepam 0.5 mg 07/23/20 14:43 08/07/20 08:52 Clonazepam 0.5 Mg Tablet PO 0.5 mg TID PRN Administration Anxiety Docusate Sodium 100 mg 07/27/20 12:26 08/07/20 08:52 Docusate Sodium 100 Mg Capsule PO 100 mg BID PRN Administration contipation Glipizide 10 mg 07/23/20 07:30 08/07/20 08:45 Glipizide 10 Mg Tablet PO 10 mg DAILY@0730 [facility] Administration Glipizide 5 mg 07/23/20 17:00 08/06/20 17:08 Glipizide 5 Mg Tablet PO 5 mg DAILY@1700 [facility] Administration Insulin Glargine 14 unit 07/26/20 09:00 08/07/20 08:53 Insulin Glargine,Hum.Rec.Anlog 100 Unit/Ml 10 Ml Vial SUBCUT 14 unit DAILY [facility] Administration Lisinopril 5 mg 08/05/20 20:00 08/06/20 19:57 Lisinopril 5 Mg Tablet PO 5 mg DAILY@2000 [facility] Administration Protocol Magnesium Hydroxide 30 ml 07/22/20 23:50 Milk Of Magnesia 30 Ml Oral.Susp PO DAILY PRN Constipation Melatonin 6 mg 08/02/20 21:00 08/07/20 00:04 Melatonin 3 Mg Tablet PO 6 mg BEDTIME [facility] Administration Naloxegol 12.5 mg 08/05/20 15:00 08/07/20 08:45 Naloxegol Oxalate 12.5 Mg Tablet PO 12.5 mg DAILY [facility] Administration Nortriptyline HCl 10 mg 08/05/20 21:00 08/06/20 19:57 Nortriptyline Hcl 10 Mg Capsule PO 10 mg BEDTIME [facility] Administration Nystatin 1 appl 07/25/20 21:00 08/07/20 10:03 Nystatin Cream 15 Gm Tube TOPICAL 1 appl BID [facility] Administration Protocol Ondansetron HCl 4 mg 07/23/20 16:51 07/23/20 17:29 Ondansetron Odt 4 Mg Tab.Rapdis TRANSLINGU 4 mg Q12H PRN Administration Nausea Oxycodone HCl 15 mg 07/23/20 08:00 08/07/20 10:02 Oxycodone Hcl Immed Release 15 Mg Tablet PO 15 mg Q4H [facility] Administration Polyethylene Glycol 17 gm 07/25/20 20:48 08/04/20 13:52 Polyethylene Glycol 3350 17 Gm Powd.Pack PO 17 gm BID PRN Administration Constipation Psyllium Hydrophilic Mucilloid 3.4 gm 08/02/20 21:00 08/07/20 10:03 Psyllium Seed 3.4 Gm Powd.Pack PO Not Given BID [facility] Simethicone 80 mg 08/04/20 00:11 08/04/20 09:50 Simethicone 80 Mg Tab.Chew PO 08/10/20 23:59 80 mg Q6H PRN Administration Gas Sodium Biphosphate/Sodium Phosphate 133 ml 07/26/20 10:58 07/26/20 17:25 Sodium Phosphate,[place]-Dibasic 133 Ml Enema [place] 133 ml ONCE PRN Administration contipation Sodium Biphosphate/Sodium Phosphate 133 ml 07/26/20 18:00 Sodium Phosphate,[place]-Dibasic 133 Ml Enema [place] ONCE PRN Constipation Zolpidem Tartrate 5 mg 08/06/20 23:45 08/07/20 00:04 Zolpidem Tartrate 5 Mg Tablet PO 5 mg BEDTIME [facility] Administration Allergies Allergies Allergy/AdvReac Type Severity Reaction Status Date / Time Penicillins Allergy Mild RASH Unverified 10/29/19 17:20 Sulfa (Sulfonamide Allergy Unknown UNKNOWN Unverified 10/29/19 17:20 Antibiotics) Assessment & Plan Assessment & Plan (1) HTN (hypertension): Status: Acute Code(s): I10 - Essential (primary) hypertension (2) Major depressive disorder, recurrent severe without psychotic features: Status: Acute Code(s): F33.2 - Major depressive disorder, recurrent severe without psychotic features Assessment and Plan: This is a 80 yo F with a PMH of HTN, DM who is admitted to the [facility]. Medical services reconsulted for BP management. 1. Uncontrolled DM On atenolol 50mg daily. She endorses that she was on BID dosing previously, but does not recall her dose. Nonetheless, give her low normal HR, will avoid uptitrating his beta-blockers. Given her history of DM, will start low dose DEV inhibitors. She should have a BMP checked next week (ordered for next Saturday). If she is discharged before then, please ensure that this is done on an outpatient basis. Continue her other psych care. 2. Antidepressant treatment. Stop Cymbalta for alleged side effects Start Nortriptilyne 10 mg p qhs 3. HTN Lower Lisinpril to 5 mg po qhs Greater than 50% of the session was spent on counseling and/or coordination of care Reason for contiued inpatient stay Substantial Risk for: inability to function
[2020-08-06 16:38] LABS: Glucose, Whole Blood 204 mg/dL (60-115)
[2020-08-06] MEDS: glipiZIDE 5 MG TABLET PO (17:08)
[2020-08-06 18:00] VITALS: BP 140/64; PULSE 67; TEMP 36.9; O2SAT 99
[2020-08-06 19:57] VITALS: BP 158/69; PULSE 66
[2020-08-06] MEDS: Nortriptyline HCl 10 MG CAPSULE PO (19:57)
[2020-08-06] MEDS: lisinopriL 5 MG TABLET PO (19:57)
[2020-08-06 22:01] LABS: Glucose, Whole Blood 134 mg/dL (60-115)
[2020-08-07] MEDS: Acetaminophen 325 MG TABLET 650 MG PO ×2 (00:03→10:02)
[2020-08-07] MEDS: Zolpidem Tartrate 5 MG TABLET PO ×2 (00:04→22:45)
[2020-08-07] MEDS: Melatonin 3 MG TABLET 6 MG PO ×2 (00:04→22:45)
[2020-08-07] MEDS: oxyCODONE HCl Immed Release 15 MG TABLET PO ×4 (05:24→21:43)
[2020-08-07 05:29] VITALS: BP 147/67; PULSE 60; RESP 18; TEMP 36.9; O2SAT 98
[2020-08-07] MEDS: Artificial Tears 15 ML DROPS 2 DROP EYE-BOTH (05:54)
[2020-08-07] MEDS: atenoloL 50 MG TABLET PO (08:45)
[2020-08-07] MEDS: glipiZIDE 10 MG TABLET PO (08:45)
[2020-08-07] MEDS: clonazePAM 0.5 MG TABLET PO ×3 (08:52→21:43)
[2020-08-07] MEDS: Docusate Sodium 100 MG CAPSULE PO (08:52)
[2020-08-07] MEDS: Insulin Glargine,Hum.rec.anlog 100 UNIT/ML 10 ML VIAL 14 UNIT SUBCUT (08:53)
[2020-08-07 09:24] LABS: Glucose, Whole Blood 165 mg/dL (60-115)
[2020-08-07] MEDS: Nystatin Cream 15 GM TUBE 1 APPL TOPICAL (10:03)
[2020-08-07 11:37] LABS: Glucose, Whole Blood 64 mg/dL (60-115)
--- NOTE | 2020-08-07 12:21 | HO.PSYCHPN ---
Subjective Subjective Date of Service: 08/07/20 Reason For Visit: Depression and anxiety Interim History: Pt continues to present as very somatically preoccupied, draws attention from others by her multiple somatic concerns. Some which are in fact happening but pt experiences them as catastrophic and demands immediate attention to chronic, non life threatening health concerns. Pt reports she is sleeping well. She denies constipation. She reports some relief from antidepressant but continues to warn this database report writer so far no side effects, but we'll see. Pt with difficulty ending conversation and looking for additional concerns to keep this database report writer engage in interview. She denies SI/HI. Pt getting used to unit and attention from staff. Review of Systems Review of Systems Constitutional : No Weight loss, No Fever, No Chills ENT/Mouth : No sore throat, No Rhinorrhea Eyes: No Swelling, No Redness Cardiovascular : No Chest Pain, No SOB, No Edema Respiratory : No Cough, No Sputum, No Wheezing Gastrointestinal : see HPI Genitourinary : NO Dysuria, No Urinary Frequency, No Hematuria, No Urgency Musculoskeletal : + joint pain, + Myalgias, No Joint Swelling Skin : No Skin Lesions, No rash Neuro : No Weakness, No Numbness, No Dizziness, No Headache Psych : ++ Depression Heme/Lymph: No Bruising, No Lymphadenopathy Endocrine : No Polyuria, No Polydipsia All other systems reviewed and are negative. Yes all other systems are reviewed and are negative Cardiovascular: Reports no additional cardiovascular complaints Respiratory: Reports no additional respiratory complaints Mental Status Exam Mental Status Exam Narrative: Appearance: casually groomed, fair hygiene, in NAD Behavior: calm, cooperative Psychomotor: no agitation or retardation noted Speech: clear, normal rate/rhythm/volume, spontaneous TP: linear TC: no signs of psychosis, somatic concerns Mood: okay Affect:somewhat blunted SI:denies HI:denies AH/VH:none Delusions:none Insight/judgment:fair x 2. Memory/cog: alert, oriented x 2. grossly intact to conversational testing. Diagnostics Vital Signs (24Hr): Vital Signs - 24 hr 08/06/20 18:00 08/06/20 19:57 08/07/20 05:29 Temperature 98.4 F 98.5 F Pulse Rate 67 66 60 Respiratory Rate 18 Blood Pressure 140/64 H 158/69 H 147/67 H Pulse Oximetry 99 98 Body Mass Index 26.1 Labs Results: 08/03/20 06:35 08/03/20 06:35 Labs: Laboratory Results - last 48 hr 08/05/20 08/05/20 08/06/20 16:51 20:03 06:08 POC Glucose 175 H 211 H 127 H 08/06/20 08/06/20 08/06/20 07:47 11:41 16:33 POC Glucose 152 H 87 204 H 08/06/20 08/07/20 08/07/20 21:57 08:44 11:30 POC Glucose 134 H 165 H 64 Imaging Radiology Impressions: ITS Impressions KUB X-Ray 07/26/20 20:15 IMPRESSION: Moderate stool burden. No obstruction. KUB X-Ray 08/03/20 13:00 IMPRESSION: 1. Nonobstructive bowel gas pattern. 2. Mild to moderate colonic stool burden appears mildly decreased. Medications Medications Current Medications Generic Name Dose Route Start Last Admin Trade Name Freq PRN Reason Stop Dose Admin Acetaminophen 650 mg 07/22/20 23:50 08/07/20 10:02 Acetaminophen 325 Mg Tablet PO 650 mg Q6H PRN Administration Headache/Pain Mild Scale (1-3) Al Hydroxide/Mg Hydroxide 30 ml 07/22/20 23:50 Magnesium Hydrox/Alum Hydrox 30 Ml Oral.Susp PO Q6H PRN Heartburn/Nausea Artificial Tears 2 drop 07/25/20 11:54 08/07/20 05:54 Artificial Tears 15 Ml Drops EYE-BOTH 2 drop Q4H PRN Administration Dry Eyes Atenolol 50 mg 07/23/20 09:00 08/07/20 08:45 Atenolol 50 Mg Tablet PO 50 mg DAILY [facility]EL Administration Protocol Clonazepam 0.5 mg 07/23/20 14:43 08/07/20 08:52 Clonazepam 0.5 Mg Tablet PO 0.5 mg TID PRN Administration Anxiety Docusate Sodium 100 mg 07/27/20 12:26 08/07/20 08:52 Docusate Sodium 100 Mg Capsule PO 100 mg BID PRN Administration contipation Glipizide 10 mg 07/23/20 07:30 08/07/20 08:45 Glipizide 10 Mg Tablet PO 10 mg DAILY@0730 [facility]EL Administration Glipizide 5 mg 07/23/20 17:00 08/06/20 17:08 Glipizide 5 Mg Tablet PO 5 mg DAILY@1700 [facility] Administration Insulin Glargine 14 unit 07/26/20 09:00 08/07/20 08:53 Insulin Glargine,Hum.Rec.Anlog 100 Unit/Ml 10 Ml Vial SUBCUT 14 unit DAILY [facility] Administration Lisinopril 5 mg 08/05/20 20:00 08/06/20 19:57 Lisinopril 5 Mg Tablet PO 5 mg DAILY@2000 [facility] Administration Protocol Magnesium Hydroxide 30 ml 07/22/20 23:50 Milk Of Magnesia 30 Ml Oral.Susp PO DAILY PRN Constipation Melatonin 6 mg 08/02/20 21:00 08/07/20 00:04 Melatonin 3 Mg Tablet PO 6 mg BEDTIME [facility] Administration Naloxegol 12.5 mg 08/05/20 15:00 08/07/20 08:45 Naloxegol Oxalate 12.5 Mg Tablet PO 12.5 mg DAILY [facility] Administration Nortriptyline HCl 10 mg 08/05/20 21:00 08/06/20 19:57 Nortriptyline Hcl 10 Mg Capsule PO 10 mg BEDTIME [facility] Administration Nystatin 1 appl 07/25/20 21:00 08/07/20 10:03 Nystatin Cream 15 Gm Tube TOPICAL 1 appl BID [facility] Administration Protocol Ondansetron HCl 4 mg 07/23/20 16:51 07/23/20 17:29 Ondansetron Odt 4 Mg Tab.Rapdis TRANSLINGU 4 mg Q12H PRN Administration Nausea Oxycodone HCl 15 mg 07/23/20 08:00 08/07/20 10:02 Oxycodone Hcl Immed Release 15 Mg Tablet PO 15 mg Q4H [facility] Administration Polyethylene Glycol 17 gm 07/25/20 20:48 08/04/20 13:52 Polyethylene Glycol 3350 17 Gm Powd.Pack PO 17 gm BID PRN Administration Constipation Psyllium Hydrophilic Mucilloid 3.4 gm 08/02/20 21:00 08/07/20 10:03 Psyllium Seed 3.4 Gm Powd.Pack PO Not Given BID [facility] Simethicone 80 mg 08/04/20 00:11 08/04/20 09:50 Simethicone 80 Mg Tab.Chew PO 08/10/20 23:59 80 mg Q6H PRN Administration Gas Sodium Biphosphate/Sodium Phosphate 133 ml 07/26/20 10:58 07/26/20 17:25 Sodium Phosphate,[place]-Dibasic 133 Ml Enema [place] 133 ml ONCE PRN Administration contipation Sodium Biphosphate/Sodium Phosphate 133 ml 07/26/20 18:00 Sodium Phosphate,[place]-Dibasic 133 Ml Enema [place] ONCE PRN Constipation Zolpidem Tartrate 5 mg 08/06/20 23:45 08/07/20 00:04 Zolpidem Tartrate 5 Mg Tablet PO 5 mg BEDTIME PATEL Administration Allergies Allergies Allergy/AdvReac Type Severity Reaction Status Date / Time Penicillins Allergy Mild RASH Unverified 10/29/19 17:20 Sulfa (Sulfonamide Allergy Unknown UNKNOWN Unverified 10/29/19 17:20 Antibiotics) Assessment & Plan Assessment & Plan (1) HTN (hypertension): Status: Acute Code(s): I10 - Essential (primary) hypertension (2) Major depressive disorder, recurrent severe without psychotic features: Status: Acute Code(s): F33.2 - Major depressive disorder, recurrent severe without psychotic features Assessment and Plan: This is a 80 yo F with a PMH of HTN, DM who is admitted to the [facility] unit. Medical services reconsulted for BP management. 1. Uncontrolled DM On atenolol 50mg daily. She endorses that she was on BID dosing previously, but does not recall her dose. Nonetheless, give her low normal HR, will avoid uptitrating his beta-blockers. Given her history of DM, will start low dose DEV inhibitors. She should have a BMP checked next week (ordered for next Saturday). If she is discharged before then, please ensure that this is done on an outpatient basis. Continue her other psych care. 2. Antidepressant treatment. Stop Cymbalta for alleged side effects Start Nortriptilyne 10 mg p qhs 3. HTN Lower Lisinpril to 5 mg po qhs Greater than 50% of the session was spent on counseling and/or coordination of care Reason for contiued inpatient stay Substantial Risk for: inability to function
[2020-08-07 12:33] LABS: Glucose, Whole Blood 80 mg/dL (60-115)
[2020-08-07 18:00] VITALS: BP 141/66; PULSE 67; TEMP 36.6; O2SAT 97
[2020-08-07] MEDS: glipiZIDE 5 MG TABLET PO (18:05)
[2020-08-07 20:15] VITALS: BP 141/67; PULSE 67
[2020-08-07] MEDS: Nortriptyline HCl 10 MG CAPSULE PO (20:15)
[2020-08-07] MEDS: lisinopriL 5 MG TABLET PO (20:15)
[2020-08-07 22:57] LABS: Glucose, Whole Blood 163 mg/dL (60-115)
[2020-08-07 22:57] LABS: Glucose, Whole Blood 160 mg/dL (60-115)
[2020-08-08] MEDS: oxyCODONE HCl Immed Release 15 MG TABLET PO ×4 (02:30→21:03)
[2020-08-08] MEDS: Acetaminophen 325 MG TABLET 650 MG PO (02:31)
[2020-08-08 07:13] LABS: Glucose, Whole Blood 109 mg/dL (60-115)
[2020-08-08 09:00] VITALS: BP 136/66; PULSE 68; RESP 16; TEMP 37; O2SAT 98
[2020-08-08 09:03] VITALS: BP 136/66; PULSE 70
[2020-08-08] MEDS: atenoloL 50 MG TABLET PO (09:03)
[2020-08-08] MEDS: glipiZIDE 10 MG TABLET PO (09:04)
[2020-08-08] MEDS: Artificial Tears 15 ML DROPS 2 DROP EYE-BOTH ×2 (09:04→15:08)
[2020-08-08] MEDS: clonazePAM 0.5 MG TABLET PO ×3 (09:10→21:09)
[2020-08-08] MEDS: Nystatin Cream 15 GM TUBE 1 APPL TOPICAL ×2 (09:50→22:00)
[2020-08-08 11:35] LABS: Glucose, Whole Blood 116 mg/dL (60-115)
--- NOTE | 2020-08-08 12:48 | HO.PSYCHPN ---
Subjective Subjective Date of Service: 08/08/20 Reason For Visit: Depression and anxiety Interim History: The patient remains somatically preocupied, she denies current side effects with Pamelor 10 mg. Very attention seeking but so far, stable. She refused today AM her INH Mental Status Exam Mental Status Exam Patient Appearance: Well Grooomed Patient Orientation: Person, Place, Time and Situation Level of Consciousness: Awake Patient Behavior: Talkative Mood Description: Withdrawn Affect Description: Constricted Patient Cognition Impaired: No Ability to Follow Directions: Good Speech Pattern: Clear Memory Description: Intact Hallucinations: None Thought Process: Goal Oriented Thought Content: positive for Obsessional Thoughts Depressive Symptoms: Increased Anxiety Judgement: Fair Diagnostics Vital Signs (24Hr): Vital Signs - 24 hr 08/07/20 18:00 08/07/20 20:15 08/08/20 09:00 Temperature 97.9 F 98.6 F Pulse Rate 67 67 68 Respiratory Rate 16 Blood Pressure 141/66 H 141/67 H 136/66 Pulse Oximetry 97 98 08/08/20 09:03 Temperature Pulse Rate 70 Respiratory Rate Blood Pressure 136/66 Pulse Oximetry Body Mass Index 26.1 Labs Results: 08/03/20 06:35 08/03/20 06:35 Labs: Laboratory Results - last 48 hr 08/06/20 08/06/20 08/07/20 16:33 21:57 08:44 POC Glucose 204 H 134 H 165 H 08/07/20 08/07/20 08/07/20 11:30 12:19 16:06 POC Glucose 64 80 160 H 08/07/20 08/08/20 08/08/20 21:50 06:58 11:23 POC Glucose 163 H 109 116 H Imaging Radiology Impressions: ITS Impressions KUB X-Ray 07/26/20 20:15 IMPRESSION: Moderate stool burden. No obstruction. KUB X-Ray 08/03/20 13:00 IMPRESSION: 1. Nonobstructive bowel gas pattern. 2. Mild to moderate colonic stool burden appears mildly decreased. Medications Medications Current Medications Generic Name Dose Route Start Last Admin Trade Name Freq PRN Reason Stop Dose Admin Acetaminophen 650 mg 07/22/20 23:50 08/08/20 02:31 Acetaminophen 325 Mg Tablet PO 650 mg Q6H PRN Administration Headache/Pain Mild Scale (1-3) Al Hydroxide/Mg Hydroxide 30 ml 07/22/20 23:50 Magnesium Hydrox/Alum Hydrox 30 Ml Oral.Susp PO Q6H PRN Heartburn/Nausea Artificial Tears 2 drop 07/25/20 11:54 08/08/20 09:04 Artificial Tears 15 Ml Drops EYE-BOTH 2 drop Q4H PRN Administration Dry Eyes Atenolol 50 mg 07/23/20 09:00 08/08/20 09:03 Atenolol 50 Mg Tablet PO 50 mg DAILY PATEL Administration Protocol Clonazepam 0.5 mg 07/23/20 14:43 08/08/20 09:10 Clonazepam 0.5 Mg Tablet PO 0.5 mg TID PRN Administration Anxiety Docusate Sodium 100 mg 07/27/20 12:26 08/07/20 08:52 Docusate Sodium 100 Mg Capsule PO 100 mg BID PRN Administration contipation Glipizide 10 mg 07/23/20 07:30 08/08/20 09:04 Glipizide 10 Mg Tablet PO 10 mg DAILY@0730 PAT[facility] Administration Glipizide 5 mg 07/23/20 17:00 08/07/20 18:05 Glipizide 5 Mg Tablet PO 5 mg DAILY@1700 [facility] Administration Insulin Glargine 14 unit 07/26/20 09:00 08/08/20 09:08 Insulin Glargine,Hum.Rec.Anlog 100 Unit/Ml 10 Ml Vial SUBCUT Not Given DAILY [facility] Lisinopril 5 mg 08/05/20 20:00 08/07/20 20:15 Lisinopril 5 Mg Tablet PO 5 mg DAILY@2000 [facility] Administration Protocol Magnesium Hydroxide 30 ml 07/22/20 23:50 Milk Of Magnesia 30 Ml Oral.Susp PO DAILY PRN Constipation Melatonin 6 mg 08/02/20 21:00 08/07/20 22:45 Melatonin 3 Mg Tablet PO 6 mg BEDTIME [facility] Administration Naloxegol 12.5 mg 08/05/20 15:00 08/08/20 09:03 Naloxegol Oxalate 12.5 Mg Tablet PO 12.5 mg DAILY [facility] Administration Nortriptyline HCl 10 mg 08/05/20 21:00 08/07/20 20:15 Nortriptyline Hcl 10 Mg Capsule PO 10 mg BEDTIME [facility] Administration Nystatin 1 appl 07/25/20 21:00 08/08/20 09:50 Nystatin Cream 15 Gm Tube TOPICAL 1 appl BID [facility] Administration Protocol Ondansetron HCl 4 mg 07/23/20 16:51 07/23/20 17:29 Ondansetron Odt 4 Mg Tab.Rapdis TRANSLINGU 4 mg Q12H PRN Administration Nausea Oxycodone HCl 15 mg 07/23/20 08:00 08/08/20 09:03 Oxycodone Hcl Immed Release 15 Mg Tablet PO 15 mg Q4H [facility] Administration Polyethylene Glycol 17 gm 07/25/20 20:48 08/04/20 13:52 Polyethylene Glycol 3350 17 Gm Powd.Pack PO 17 gm BID PRN Administration Constipation Psyllium Hydrophilic Mucilloid 3.4 gm 08/02/20 21:00 08/08/20 09:04 Psyllium Seed 3.4 Gm Powd.Pack PO 3.4 gm BID PATEL Administration Simethicone 80 mg 08/04/20 00:11 08/04/20 09:50 Simethicone 80 Mg Tab.Chew PO 08/10/20 23:59 80 mg Q6H PRN Administration Gas Sodium Biphosphate/Sodium Phosphate 133 ml 07/26/20 10:58 07/26/20 17:25 Sodium Phosphate,[place]-Dibasic 133 Ml Enema [place] 133 ml ONCE PRN Administration contipation Sodium Biphosphate/Sodium Phosphate 133 ml 07/26/20 18:00 Sodium Phosphate,[place]-Dibasic 133 Ml Enema [place] ONCE PRN Constipation Zolpidem Tartrate 5 mg 08/06/20 23:45 08/07/20 22:45 Zolpidem Tartrate 5 Mg Tablet PO 5 mg BEDTIME [facility] Administration Allergies Allergies Allergy/AdvReac Type Severity Reaction Status Date / Time Penicillins Allergy Mild RASH Unverified 10/29/19 17:20 Sulfa (Sulfonamide Allergy Unknown UNKNOWN Unverified 10/29/19 17:20 Antibiotics) Assessment & Plan Assessment & Plan (1) HTN (hypertension): Status: Acute Code(s): I10 - Essential (primary) hypertension (2) Major depressive disorder, recurrent severe without psychotic features: Status: Acute Code(s): F33.2 - Major depressive disorder, recurrent severe without psychotic features Assessment and Plan: This is a 80 yo F with a PMH of HTN, DM who is admitted to the [facility]. Medical services reconsulted for BP management. 1. Uncontrolled DM On atenolol 50mg daily. She endorses that she was on BID dosing previously, but does not recall her dose. Nonetheless, give her low normal HR, will avoid uptitrating his beta-blockers. Given her history of DM, will start low dose DEV inhibitors. She should have a BMP checked next week (ordered for next Saturday). If she is discharged before then, please ensure that this is done on an outpatient basis. Continue her other psych care. 2. Antidepressant treatment. Continue Nortriptilyne 10 mg p qhs 3. HTN Lower Lisinpril to 5 mg po qhs Greater than 50% of the session was spent on counseling and/or coordination of care Reason for contiued inpatient stay Substantial Risk for: inability to function, rapid decompensation and med/psych decompensation
[2020-08-08] MEDS: Simethicone 80 MG TAB.CHEW PO ×2 (13:04→21:59)
[2020-08-08] MEDS: polyethylene glycoL 3350 17 GM POWD.PACK PO (13:04)
[2020-08-08 16:29] LABS: Glucose, Whole Blood 200 mg/dL (60-115)
[2020-08-08] MEDS: glipiZIDE 5 MG TABLET PO (16:47)
[2020-08-08 18:23] VITALS: BP 120/58; PULSE 71; RESP 16; TEMP 37.4; O2SAT 94
[2020-08-08 19:38] VITALS: BP 139/81; PULSE 67
[2020-08-08] MEDS: lisinopriL 5 MG TABLET PO (19:38)
[2020-08-08] MEDS: Nortriptyline HCl 10 MG CAPSULE PO (19:38)
[2020-08-08 21:11] LABS: Glucose, Whole Blood 174 mg/dL (60-115)
[2020-08-08] MEDS: Melatonin 3 MG TABLET 6 MG PO (21:55)
[2020-08-08] MEDS: Zolpidem Tartrate 5 MG TABLET PO (21:55)
[2020-08-09] MEDS: oxyCODONE HCl Immed Release 15 MG TABLET PO ×4 (03:40→21:09)
[2020-08-09] MEDS: Acetaminophen 325 MG TABLET 650 MG PO (03:41)
[2020-08-09] MEDS: Artificial Tears 15 ML DROPS 2 DROP EYE-BOTH ×2 (03:45→11:29)
[2020-08-09 06:33] LABS: Glucose, Whole Blood 123 mg/dL (60-115)
[2020-08-09 06:43] VITALS: BP 122/56; PULSE 63; RESP 16; TEMP 36.6; O2SAT 95
[2020-08-09 08:15] LABS: Anion Gap 12 (12-20); Blood Urea Nitrogen 20 mg/dL (9-16); Calcium 9.4 mg/dL (8.4-10.2); Carbon Dioxide 27 mmol/L (22-29); Chloride 104 mmol/L (96-108); Creatinine Clr Calc Pharmacy 48.1; Estimated Glomerular Filt Rate > 60; Glucose Random 125 mg/dL (60-115); Potassium 4.4 mmol/L (3.3-5.1); Sodium 139 mmol/L (135-145)
[2020-08-09] MEDS: glipiZIDE 10 MG TABLET PO (09:25)
[2020-08-09 09:26] VITALS: BP 135/64; PULSE 69
[2020-08-09] MEDS: Simethicone 80 MG TAB.CHEW PO (09:26)
[2020-08-09] MEDS: polyethylene glycoL 3350 17 GM POWD.PACK PO (09:26)
[2020-08-09] MEDS: atenoloL 50 MG TABLET PO (09:26)
[2020-08-09] MEDS: Docusate Sodium 100 MG CAPSULE PO (09:26)
[2020-08-09] MEDS: clonazePAM 0.5 MG TABLET PO ×3 (09:26→20:56)
[2020-08-09 11:33] LABS: Glucose, Whole Blood 115 mg/dL (60-115)
[2020-08-09] MEDS: Nystatin Cream 15 GM TUBE 1 APPL TOPICAL (11:34)
--- NOTE | 2020-08-09 11:41 | HO.PSYCHPN ---
Subjective Subjective Date of Service: 08/09/20 Reason For Visit: Depression and anxiety Interim History: Remains somatically preocupied but less anxious, tolerating well the medications. She complaints of constipation and we will use an enema if she doesn't have a BM until tomorrow. Mental Status Exam Mental Status Exam Patient Appearance: Well Grooomed Patient Orientation: Person, Place and Time Level of Consciousness: Awake and Appropriate Patient Behavior: Cooperative Mood Description: Calm Affect Description: Anxious Patient Cognition Impaired: No Ability to Follow Directions: Good Speech Pattern: Clear Memory Description: Intact Hallucinations: None Delusions: Not Present Thought Process: Goal Oriented Thought Content: positive for Obsessional Thoughts and positive for Circumstantial Judgement: Fair Diagnostics Vital Signs (24Hr): Vital Signs - 24 hr 08/08/20 18:23 08/08/20 19:38 08/09/20 06:43 Temperature 99.3 F 97.8 F Pulse Rate 71 67 63 Respiratory Rate 16 16 Blood Pressure 120/58 L 139/81 122/56 L Pulse Oximetry 94 95 08/09/20 09:26 Temperature Pulse Rate 69 Respiratory Rate Blood Pressure 135/64 Pulse Oximetry Body Mass Index 26.1 Labs Results: 08/03/20 06:35 08/09/20 07:22 Labs: Laboratory Results - last 48 hr 08/07/20 08/07/20 08/07/20 12:19 16:06 21:50 Sodium Potassium Chloride Carbon Dioxide Anion Gap BUN Creatinine Estim Creat Clear Calc Estimated GFR POC Glucose 80 160 H 163 H Random Glucose Calcium 08/08/20 08/08/20 08/08/20 06:58 11:23 16:25 Sodium Potassium Chloride Carbon Dioxide Anion Gap BUN Creatinine Estim Creat Clear Calc Estimated GFR POC Glucose 109 116 H 200 H Random Glucose Calcium 08/08/20 08/09/20 08/09/20 21:09 06:25 07:22 Sodium 139 Potassium 4.4 D Chloride 104 Carbon Dioxide 27 Anion Gap 12 BUN 20 H Creatinine 0.87 Estim Creat Clear Calc 48.1 Estimated GFR > 60 POC Glucose 174 H 123 H Random Glucose 125 H Calcium 9.4 08/09/20 11:27 Sodium Potassium Chloride Carbon Dioxide Anion Gap BUN Creatinine Estim Creat Clear Calc Estimated GFR POC Glucose 115 Random Glucose Calcium Imaging Radiology Impressions: ITS Impressions KUB X-Ray 07/26/20 20:15 IMPRESSION: Moderate stool burden. No obstruction. KUB X-Ray 08/03/20 13:00 IMPRESSION: 1. Nonobstructive bowel gas pattern. 2. Mild to moderate colonic stool burden appears mildly decreased. Medications Medications Current Medications Generic Name Dose Route Start Last Admin Trade Name Freq PRN Reason Stop Dose Admin Acetaminophen 650 mg 07/22/20 23:50 08/09/20 03:41 Acetaminophen 325 Mg Tablet PO 650 mg Q6H PRN Administration Headache/Pain Mild Scale (1-3) Al Hydroxide/Mg Hydroxide 30 ml 07/22/20 23:50 Magnesium Hydrox/Alum Hydrox 30 Ml Oral.Susp PO Q6H PRN Heartburn/Nausea Artificial Tears 2 drop 07/25/20 11:54 08/09/20 11:29 Artificial Tears 15 Ml Drops EYE-BOTH 2 drop Q4H PRN Administration Dry Eyes Atenolol 50 mg 07/23/20 09:00 08/09/20 09:26 Atenolol 50 Mg Tablet PO 50 mg DAILY [facility] Administration Protocol Clonazepam 0.5 mg 07/23/20 14:43 08/09/20 09:26 Clonazepam 0.5 Mg Tablet PO 0.5 mg TID PRN Administration Anxiety Docusate Sodium 100 mg 07/27/20 12:26 08/09/20 09:26 Docusate Sodium 100 Mg Capsule PO 100 mg BID PRN Administration contipation Glipizide 10 mg 07/23/20 07:30 08/09/20 09:25 Glipizide 10 Mg Tablet PO 10 mg DAILY@0730 [facility] Administration Glipizide 5 mg 07/23/20 17:00 08/08/20 16:47 Glipizide 5 Mg Tablet PO 5 mg DAILY@1700 [facility] Administration Insulin Glargine 14 unit 07/26/20 09:00 08/09/20 11:29 Insulin Glargine,Hum.Rec.Anlog 100 Unit/Ml 10 Ml Vial SUBCUT Not Given DAILY [facility] Lisinopril 5 mg 08/05/20 20:00 08/08/20 19:38 Lisinopril 5 Mg Tablet PO 5 mg DAILY@2000 [facility] Administration Protocol Magnesium Hydroxide 30 ml 07/22/20 23:50 Milk Of Magnesia 30 Ml Oral.Susp PO DAILY PRN Constipation Melatonin 6 mg 08/02/20 21:00 08/08/20 21:55 Melatonin 3 Mg Tablet PO 6 mg BEDTIME [facility] Administration Naloxegol 12.5 mg 08/05/20 15:00 08/09/20 09:26 Naloxegol Oxalate 12.5 Mg Tablet PO 12.5 mg DAILY [facility] Administration Nortriptyline HCl 10 mg 08/05/20 21:00 08/08/20 19:38 Nortriptyline Hcl 10 Mg Capsule PO 10 mg BEDTIME [facility] Administration Nystatin 1 appl 07/25/20 21:00 08/09/20 11:34 Nystatin Cream 15 Gm Tube TOPICAL 1 appl BID [facility] Administration Protocol Ondansetron HCl 4 mg 07/23/20 16:51 07/23/20 17:29 Ondansetron Odt 4 Mg Tab.Rapdis TRANSLINGU 4 mg Q12H PRN Administration Nausea Oxycodone HCl 15 mg 07/23/20 08:00 08/09/20 09:25 Oxycodone Hcl Immed Release 15 Mg Tablet PO 15 mg Q4H [facility] Administration Polyethylene Glycol 17 gm 07/25/20 20:48 08/09/20 09:26 Polyethylene Glycol 3350 17 Gm Powd.Pack PO 17 gm BID PRN Administration Constipation Psyllium Hydrophilic Mucilloid 3.4 gm 08/02/20 21:00 08/09/20 06:33 Psyllium Seed 3.4 Gm Powd.Pack PO 3.4 gm BID [facility] Administration Simethicone 80 mg 08/04/20 00:11 08/09/20 09:26 Simethicone 80 Mg Tab.Chew PO 08/10/20 23:59 80 mg Q6H PRN Administration Gas Sodium Biphosphate/Sodium Phosphate 133 ml 07/26/20 10:58 07/26/20 17:25 Sodium Phosphate,[place]-Dibasic 133 Ml Enema [place] 133 ml ONCE PRN Administration contipation Sodium Biphosphate/Sodium Phosphate 133 ml 07/26/20 18:00 Sodium Phosphate,[place]-Dibasic 133 Ml Enema [place] ONCE PRN Constipation Zolpidem Tartrate 5 mg 08/06/20 23:45 08/08/20 21:55 Zolpidem Tartrate 5 Mg Tablet PO 5 mg BEDTIME [facility] Administration Allergies Allergies Allergy/AdvReac Type Severity Reaction Status Date / Time Penicillins Allergy Mild RASH Unverified 10/29/19 17:20 Sulfa (Sulfonamide Allergy Unknown UNKNOWN Unverified 10/29/19 17:20 Antibiotics) Assessment & Plan Assessment & Plan (1) HTN (hypertension): Status: Acute Code(s): I10 - Essential (primary) hypertension (2) Major depressive disorder, recurrent severe without psychotic features: Status: Acute Code(s): F33.2 - Major depressive disorder, recurrent severe without psychotic features Assessment and Plan: This is a 80 yo F with a PMH of HTN, DM who is admitted to the [facility]. Medical services reconsulted for BP management. 1. Uncontrolled DM On atenolol 50mg daily. She endorses that she was on BID dosing previously, but does not recall her dose. Nonetheless, give her low normal HR, will avoid uptitrating his beta-blockers. Given her history of DM, will start low dose DEV inhibitors. She should have a BMP checked next week (ordered for next Saturday). If she is discharged before then, please ensure that this is done on an outpatient basis. Continue her other psych care. 2. Antidepressant treatment. Continue Nortriptilyne 10 mg p qhs 3. HTN Lower Lisinpril to 5 mg po qhs Probably D/C for Saturday. Greater than 50% of the session was spent on counseling and/or coordination of care Reason for contiued inpatient stay Substantial Risk for: inability to function, rapid decompensation and med/psych decompensation
[2020-08-09] MEDS: glipiZIDE 5 MG TABLET PO (16:25)
[2020-08-09 16:36] LABS: Glucose, Whole Blood 145 mg/dL (60-115)
[2020-08-09 18:00] VITALS: BP 129/62; PULSE 64; RESP 16; TEMP 36.7; O2SAT 95
[2020-08-09 19:34] VITALS: BP 133/61; PULSE 70; RESP 18; TEMP 36.4; O2SAT 99
[2020-08-09 19:46] VITALS: BP 133/61; PULSE 70
[2020-08-09] MEDS: lisinopriL 5 MG TABLET PO (19:46)
[2020-08-09] MEDS: Nortriptyline HCl 10 MG CAPSULE PO (19:47)
[2020-08-09 19:54] LABS: Glucose, Whole Blood 203 mg/dL (60-115)
[2020-08-09] MEDS: Melatonin 3 MG TABLET 6 MG PO (22:07)
[2020-08-09] MEDS: Zolpidem Tartrate 5 MG TABLET PO (22:07)
[2020-08-10] MEDS: Acetaminophen 325 MG TABLET 650 MG PO (02:07)
[2020-08-10] MEDS: oxyCODONE HCl Immed Release 15 MG TABLET PO ×4 (02:07→21:17)
[2020-08-10 05:50] VITALS: BP 140/65; PULSE 74; RESP 20; TEMP 36.4; O2SAT 97
[2020-08-10] MEDS: clonazePAM 0.5 MG TABLET PO ×3 (06:09→21:52)
[2020-08-10] MEDS: glipiZIDE 10 MG TABLET PO (06:49)
[2020-08-10 06:50] LABS: Glucose, Whole Blood 134 mg/dL (60-115)
[2020-08-10 08:33] VITALS: BP 138/68; PULSE 74
[2020-08-10] MEDS: atenoloL 50 MG TABLET PO (08:33)
[2020-08-10] MEDS: Nystatin Cream 15 GM TUBE 1 APPL TOPICAL (11:01)
[2020-08-10] MEDS: Sodium Phosphate,Mono-Dibasic 133 ML ENEMA PR (11:01)
--- NOTE | 2020-08-10 11:13 | P.PNPSI_ITS ---
Subjective Subjective Date of Service: 08/10/20 Reason For Visit: Depression and anxiety Interim History: The patient remains somatically preoucupied, she had a fllet enema today since she didn't have a BM in 3 days. She tolerated well Pamelor. Her main complaint is constipation and wanted to see Dr. Alba again. Mental Status Exam Mental Status Exam Patient Appearance: Well Grooomed Patient Orientation: Person, Place, Time and Situation Level of Consciousness: Awake Patient Behavior: Cooperative (attention seeking) Mood Description: Withdrawn Affect Description: Constricted Patient Cognition Impaired: No Ability to Follow Directions: Fair Speech Pattern: Clear Memory Description: Intact Hallucinations: None Delusions: Not Present Thought Process: Slowed Thinking Thought Content: positive for Circumstantial and positive for Perseveration Judgement: Fair Diagnostics Vital Signs (24Hr): Vital Signs - 24 hr 08/09/20 18:00 08/09/20 19:34 08/09/20 19:46 Temperature 98.1 F 97.5 F Pulse Rate 64 70 70 Respiratory Rate 16 18 Blood Pressure 129/62 133/61 133/61 Pulse Oximetry 95 99 08/10/20 05:50 08/10/20 08:33 Temperature 97.5 F Pulse Rate 74 74 Respiratory Rate 20 Blood Pressure 140/65 H 138/68 Pulse Oximetry 97 Body Mass Index 26.1 Labs Results: 08/03/20 06:35 08/09/20 07:22 Labs: Laboratory Results - last 48 hr 08/08/20 08/08/20 08/08/20 11:23 16:25 21:09 Sodium Potassium Chloride Carbon Dioxide Anion Gap BUN Creatinine Estim Creat Clear Calc Estimated GFR POC Glucose 116 H 200 H 174 H Random Glucose Calcium 08/09/20 08/09/20 08/09/20 06:25 07:22 11:27 Sodium 139 Potassium 4.4 D Chloride 104 Carbon Dioxide 27 Anion Gap 12 BUN 20 H Creatinine 0.87 Estim Creat Clear Calc 48.1 Estimated GFR > 60 POC Glucose 123 H 115 Random Glucose 125 H Calcium 9.4 08/09/20 08/09/20 08/10/20 16:22 19:50 06:46 Sodium Potassium Chloride Carbon Dioxide Anion Gap BUN Creatinine Estim Creat Clear Calc Estimated GFR POC Glucose 145 H 203 H 134 H Random Glucose Calcium Imaging Radiology Impressions: ITS Impressions KUB X-Ray 07/26/20 20:15 IMPRESSION: Moderate stool burden. No obstruction. KUB X-Ray 08/03/20 13:00 IMPRESSION: 1. Nonobstructive bowel gas pattern. 2. Mild to moderate colonic stool burden appears mildly decreased. Medications Medications Current Medications Generic Name Dose Route Start Last Admin Trade Name Freq PRN Reason Stop Dose Admin Acetaminophen 650 mg 07/22/20 23:50 08/10/20 02:07 Acetaminophen 325 Mg Tablet PO 650 mg Q6H PRN Administration Headache/Pain Mild Scale (1-3) Al Hydroxide/Mg Hydroxide 30 ml 07/22/20 23:50 Magnesium Hydrox/Alum Hydrox 30 Ml Oral.Susp PO Q6H PRN Heartburn/Nausea Artificial Tears 2 drop 07/25/20 11:54 08/09/20 11:29 Artificial Tears 15 Ml Drops EYE-BOTH 2 drop Q4H PRN Administration Dry Eyes Atenolol 50 mg 07/23/20 09:00 08/10/20 08:33 Atenolol 50 Mg Tablet PO 50 mg DAILY [facility] Administration Protocol Clonazepam 0.5 mg 07/23/20 14:43 08/10/20 06:09 Clonazepam 0.5 Mg Tablet PO 0.5 mg TID PRN Administration Anxiety Docusate Sodium 100 mg 07/27/20 12:26 08/09/20 09:26 Docusate Sodium 100 Mg Capsule PO 100 mg BID PRN Administration contipation Glipizide 10 mg 07/23/20 07:30 08/10/20 06:49 Glipizide 10 Mg Tablet PO 10 mg DAILY@0730 [facility] Administration Glipizide 5 mg 07/23/20 17:00 08/09/20 16:25 Glipizide 5 Mg Tablet PO 5 mg DAILY@1700 [facility] Administration Insulin Glargine 14 unit 07/26/20 09:00 08/10/20 08:55 Insulin Glargine,Hum.Rec.Anlog 100 Unit/Ml 10 Ml Vial SUBCUT Not Given DAILY [facility] Lisinopril 5 mg 08/05/20 20:00 08/09/20 19:46 Lisinopril 5 Mg Tablet PO 5 mg DAILY@2000 [facility] Administration Protocol Magnesium Hydroxide 30 ml 07/22/20 23:50 Milk Of Magnesia 30 Ml Oral.Susp PO DAILY PRN Constipation Melatonin 6 mg 08/02/20 21:00 08/09/20 22:07 Melatonin 3 Mg Tablet PO 6 mg BEDTIME [facility] Administration Naloxegol 12.5 mg 08/05/20 15:00 08/10/20 08:33 Naloxegol Oxalate 12.5 Mg Tablet PO 12.5 mg DAILY [facility] Administration Nortriptyline HCl 10 mg 08/05/20 21:00 08/09/20 19:47 Nortriptyline Hcl 10 Mg Capsule PO 10 mg BEDTIME [facility] Administration Nystatin 1 appl 07/25/20 21:00 08/10/20 11:01 Nystatin Cream 15 Gm Tube TOPICAL 1 appl BID [facility] Administration Protocol Ondansetron HCl 4 mg 07/23/20 16:51 07/23/20 17:29 Ondansetron Odt 4 Mg Tab.Rapdis TRANSLINGU 4 mg Q12H PRN Administration Nausea Oxycodone HCl 15 mg 08/09/20 21:00 08/10/20 05:54 Oxycodone Hcl Immed Release 15 Mg Tablet PO 15 mg Q4H [facility] Administration Polyethylene Glycol 17 gm 07/25/20 20:48 08/09/20 09:26 Polyethylene Glycol 3350 17 Gm Powd.Pack PO 17 gm BID PRN Administration Constipation Psyllium Hydrophilic Mucilloid 3.4 gm 08/02/20 21:00 08/10/20 08:36 Psyllium Seed 3.4 Gm Powd.Pack PO 3.4 gm BID [facility] Administration Simethicone 80 mg 08/04/20 00:11 08/09/20 09:26 Simethicone 80 Mg Tab.Chew PO 08/10/20 23:59 80 mg Q6H PRN Administration Gas Sodium Biphosphate/Sodium Phosphate 133 ml 07/26/20 18:00 Sodium Phosphate,[place]-Dibasic 133 Ml Enema [place] ONCE PRN Constipation Zolpidem Tartrate 5 mg 08/06/20 23:45 08/09/20 22:07 Zolpidem Tartrate 5 Mg Tablet PO 5 mg BEDTIME [facility] Administration Allergies Allergies Allergy/AdvReac Type Severity Reaction Status Date / Time Sulfa (Sulfonamide Allergy Severe Anaphylaxis Verified 08/09/20 20:04 Antibiotics) Penicillins Allergy Mild RASH Verified 08/09/20 20:04 Assessment & Plan Assessment & Plan (1) HTN (hypertension): Status: Acute Code(s): I10 - Essential (primary) hypertension (2) Major depressive disorder, recurrent severe without psychotic features: Status: Acute Code(s): F33.2 - Major depressive disorder, recurrent severe without psychotic features Assessment and Plan: This is a 80 yo F with a PMH of HTN, DM who is admitted to the [facility]. Medical services reconsulted for BP management. 1. Uncontrolled DM On atenolol 50mg daily. She endorses that she was on BID dosing previously, but does not recall her dose. Nonetheless, give her low normal HR, will avoid uptitrating his beta-blockers. Given her history of DM, will start low dose DEV inhibitors. She should have a BMP checked next week (ordered for next Saturday). If she is discharged before then, please ensure that this is done on an outpatient basis. Continue her other psych care. 2. Antidepressant treatment. Continue Nortriptilyne 10 mg p qhs 3. HTN Lower Lisinpril to 5 mg po qhs 4. Constipation. Continue regular meds. Today consult to the hospitalist. Probably D/C for Saturday. Greater than 50% of the session was spent on counseling and/or coordination of care Reason for contiued inpatient stay Substantial Risk for: inability to function, rapid decompensation and med/psych decompensation
[2020-08-10 11:56] LABS: Glucose, Whole Blood 159 mg/dL (60-115)
--- NOTE | 2020-08-10 14:34 | MHC.CLN ---
NUTRITION FOLLOW UP PATIENT WITH STAGE II AREA TO COCCYX IDENTIFIED 08/10/20. NUTRITION INTERVENTIONS IN PLACE: DIABETIC 1800 KCAL DIET, ENSURE 240 CC TWO TIMES DAILY. CONTINUE TO FOLLOW.
[2020-08-10] MEDS: glipiZIDE 5 MG TABLET PO (16:28)
[2020-08-10 16:40] LABS: Glucose, Whole Blood 256 mg/dL (60-115)
[2020-08-10 17:53] VITALS: BP 140/62; PULSE 77; TEMP 36.6; O2SAT 96
[2020-08-10 20:17] VITALS: BP 158/69; PULSE 76
[2020-08-10] MEDS: Nortriptyline HCl 10 MG CAPSULE PO (20:17)
[2020-08-10] MEDS: lisinopriL 5 MG TABLET PO (20:17)
[2020-08-10 20:41] LABS: Glucose, Whole Blood 126 mg/dL (60-115)
[2020-08-10] MEDS: Zolpidem Tartrate 5 MG TABLET PO (21:52)
[2020-08-10] MEDS: Melatonin 3 MG TABLET 6 MG PO (21:52)
[2020-08-10] MEDS: Artificial Tears 15 ML DROPS 2 DROP EYE-BOTH (22:00)
[2020-08-11] MEDS: oxyCODONE HCl Immed Release 15 MG TABLET PO ×5 (02:32→21:57)
[2020-08-11] MEDS: Acetaminophen 325 MG TABLET 650 MG PO ×2 (02:33→15:39)
[2020-08-11 06:00] VITALS: BP 124/59; PULSE 70; RESP 14; TEMP 36.8; O2SAT 96
--- NOTE | 2020-08-11 06:03 | PC.NURSE ---
human rights-pt requested to speak with HRO. pt would like to have a referral at ne to [facility] gastroentrology, her pcp and was offered support that this request would be made for her as this is a standard of care. would also like a referral to elderly services in her area as she is seeking more support at home and would also like to try to seek alternative housing.
[2020-08-11] MEDS: Artificial Tears 15 ML DROPS 2 DROP EYE-BOTH (06:33)
[2020-08-11] MEDS: clonazePAM 0.5 MG TABLET PO ×3 (07:00→19:43)
[2020-08-11] MEDS: atenoloL 50 MG TABLET PO (08:19)
[2020-08-11] MEDS: glipiZIDE 10 MG TABLET PO (08:19)
[2020-08-11 08:25] LABS: Glucose, Whole Blood 160 mg/dL (60-115)
[2020-08-11] MEDS: Nystatin Cream 15 GM TUBE 1 APPL TOPICAL (08:37)
--- NOTE | 2020-08-11 12:54 | P.PNPSI_ITS ---
Subjective Subjective Date of Service: 08/11/20 Reason For Visit: Depression and anxiety Interim History: Still somatically preocupied and attention seeking. She complainted that the hospitalist didn't came yesterday. Her mood is better as per staff observation. She complained that so far, Pamelor has not helped her but I reminded her that AD takes 2 weeks to work Mental Status Exam Mental Status Exam Patient Appearance: Well Grooomed Patient Orientation: Person, Place and Time Level of Consciousness: Awake Patient Behavior: Appropriate Mood Description: Calm Affect Description: Constricted Patient Cognition Impaired: No Ability to Follow Directions: Good Speech Pattern: Clear Memory Description: Intact Hallucinations: None Delusions: Not Present Thought Process: Goal Oriented Thought Content: positive for Perseveration and positive for Poverty of Content Judgement: Fair Diagnostics Vital Signs (24Hr): Vital Signs - 24 hr 08/10/20 17:53 08/10/20 20:17 08/11/20 06:00 Temperature 97.8 F 98.2 F Pulse Rate 77 76 70 Respiratory Rate 14 Blood Pressure 140/62 H 158/69 H 124/59 L Pulse Oximetry 96 96 Body Mass Index 26.1 Labs Results: 08/03/20 06:35 08/09/20 07:22 Labs: Laboratory Results - last 48 hr 08/09/20 08/09/20 08/10/20 16:22 19:50 06:46 POC Glucose 145 H 203 H 134 H 08/10/20 08/10/20 08/10/20 11:51 16:32 20:38 POC Glucose 159 H 256 H 126 H 08/11/20 08:17 POC Glucose 160 H Imaging Radiology Impressions: ITS Impressions KUB X-Ray 07/26/20 20:15 IMPRESSION: Moderate stool burden. No obstruction. KUB X-Ray 08/03/20 13:00 IMPRESSION: 1. Nonobstructive bowel gas pattern. 2. Mild to moderate colonic stool burden appears mildly decreased. Medications Medications Current Medications Generic Name Dose Route Start Last Admin Trade Name Freq PRN Reason Stop Dose Admin Acetaminophen 650 mg 07/22/20 23:50 08/11/20 02:33 Acetaminophen 325 Mg Tablet PO 650 mg Q6H PRN Administration Headache/Pain Mild Scale (1-3) Al Hydroxide/Mg Hydroxide 30 ml 07/22/20 23:50 Magnesium Hydrox/Alum Hydrox 30 Ml Oral.Susp PO Q6H PRN Heartburn/Nausea Artificial Tears 2 drop 07/25/20 11:54 08/11/20 06:33 Artificial Tears 15 Ml Drops EYE-BOTH 2 drop Q4H PRN Administration Dry Eyes Atenolol 50 mg 07/23/20 09:00 08/11/20 08:19 Atenolol 50 Mg Tablet PO 50 mg DAILY [facility] Administration Protocol Clonazepam 0.5 mg 08/10/20 21:45 08/11/20 12:09 Clonazepam 0.5 Mg Tablet PO 0.5 mg TID PRN Administration Anxiety Docusate Sodium 100 mg 07/27/20 12:26 08/09/20 09:26 Docusate Sodium 100 Mg Capsule PO 100 mg BID PRN Administration contipation Glipizide 10 mg 07/23/20 07:30 08/11/20 08:19 Glipizide 10 Mg Tablet PO 10 mg DAILY@0730 [facility] Administration Glipizide 5 mg 07/23/20 17:00 08/10/20 16:28 Glipizide 5 Mg Tablet PO 5 mg DAILY@1700 [facility] Administration Insulin Glargine 14 unit 07/26/20 09:00 08/11/20 08:37 Insulin Glargine,Hum.Rec.Anlog 100 Unit/Ml 10 Ml Vial SUBCUT Not Given DAILY [facility] Lisinopril 5 mg 08/05/20 20:00 08/10/20 20:17 Lisinopril 5 Mg Tablet PO 5 mg DAILY@2000 [facility] Administration Protocol Magnesium Hydroxide 30 ml 07/22/20 23:50 Milk Of Magnesia 30 Ml Oral.Susp PO DAILY PRN Constipation Melatonin 6 mg 08/02/20 21:00 08/10/20 21:52 Melatonin 3 Mg Tablet PO 6 mg BEDTIME [facility] Administration Naloxegol 12.5 mg 08/05/20 15:00 08/11/20 08:19 Naloxegol Oxalate 12.5 Mg Tablet PO 12.5 mg DAILY [facility] Administration Nortriptyline HCl 10 mg 08/05/20 21:00 08/10/20 20:17 Nortriptyline Hcl 10 Mg Capsule PO 10 mg BEDTIME [facility] Administration Nystatin 1 appl 07/25/20 21:00 08/11/20 08:37 Nystatin Cream 15 Gm Tube TOPICAL 1 appl BID [facility] Administration Protocol Ondansetron HCl 4 mg 07/23/20 16:51 07/23/20 17:29 Ondansetron Odt 4 Mg Tab.Rapdis TRANSLINGU 4 mg Q12H PRN Administration Nausea Oxycodone HCl 15 mg 08/09/20 21:00 08/11/20 12:09 Oxycodone Hcl Immed Release 15 Mg Tablet PO 15 mg Q4H [facility] Administration Polyethylene Glycol 17 gm 07/25/20 20:48 08/09/20 09:26 Polyethylene Glycol 3350 17 Gm Powd.Pack PO 17 gm BID PRN Administration Constipation Psyllium Hydrophilic Mucilloid 3.4 gm 08/02/20 21:00 08/11/20 08:37 Psyllium Seed 3.4 Gm Powd.Pack PO 3.4 gm BID [facility] Administration Sodium Biphosphate/Sodium Phosphate 133 ml 07/26/20 18:00 Sodium Phosphate,[place]-Dibasic 133 Ml Enema [place] ONCE PRN Constipation Zolpidem Tartrate 5 mg 08/06/20 23:45 08/10/20 21:52 Zolpidem Tartrate 5 Mg Tablet PO 5 mg BEDTIME [facility] Administration Allergies Allergies Allergy/AdvReac Type Severity Reaction Status Date / Time Sulfa (Sulfonamide Allergy Severe Anaphylaxis Verified 08/09/20 20:04 Antibiotics) Penicillins Allergy Mild RASH Verified 08/09/20 20:04 Assessment & Plan Assessment & Plan (1) HTN (hypertension): Status: Acute Code(s): I10 - Essential (primary) hypertension (2) Major depressive disorder, recurrent severe without psychotic features: Status: Acute Code(s): F33.2 - Major depressive disorder, recurrent severe without psychotic features Assessment and Plan: This is a 80 yo F with a PMH of HTN, DM who is admitted to the [facility]. Medical services reconsulted for BP management. 1. Uncontrolled DM On atenolol 50mg daily. She endorses that she was on BID dosing previously, but does not recall her dose. Nonetheless, give her low normal HR, will avoid uptitrating his beta-blockers. Given her history of DM, will start low dose DEV inhibitors. She should have a BMP checked next week (ordered for next Saturday). If she is discharged before then, please ensure that this is done on an outpatient basis. Continue her other psych care. 2. Antidepressant treatment. Continue Nortriptilyne 10 mg p qhs 3. HTN Lower Lisinpril to 5 mg po qhs 4. Constipation. Continue regular meds. Today consult to the hospitalist. D/C for Saturday. Greater than 50% of the session was spent on counseling and/or coordination of care Reason for contiued inpatient stay Substantial Risk for: inability to function, rapid decompensation and med/psych decompensation
[2020-08-11 16:08] LABS: Glucose, Whole Blood 175 mg/dL (60-115)
[2020-08-11] MEDS: glipiZIDE 5 MG TABLET PO (16:27)
[2020-08-11 17:53] VITALS: BP 135/61; PULSE 64; RESP 16; O2SAT 96
[2020-08-11 19:43] VITALS: BP 143/63; PULSE 62
[2020-08-11] MEDS: lisinopriL 5 MG TABLET PO (19:43)
[2020-08-11] MEDS: Nortriptyline HCl 10 MG CAPSULE PO (19:43)
[2020-08-11] MEDS: Docusate Sodium 100 MG CAPSULE PO (21:19)
[2020-08-11] MEDS: Melatonin 3 MG TABLET 6 MG PO (21:57)
[2020-08-11] MEDS: Zolpidem Tartrate 5 MG TABLET PO (21:57)
[2020-08-12] MEDS: oxyCODONE HCl Immed Release 15 MG TABLET PO ×3 (02:20→12:26)
[2020-08-12] MEDS: Acetaminophen 325 MG TABLET 650 MG PO ×2 (02:20→12:26)
[2020-08-12 06:00] VITALS: BP 154/67; PULSE 67; RESP 16; TEMP 36.7; O2SAT 97
[2020-08-12] MEDS: clonazePAM 0.5 MG TABLET PO ×2 (07:52→12:26)
[2020-08-12] MEDS: atenoloL 50 MG TABLET PO (07:52)
[2020-08-12] MEDS: Insulin Glargine,Hum.rec.anlog 100 UNIT/ML 10 ML VIAL 14 UNIT SUBCUT (07:55)
[2020-08-12] MEDS: glipiZIDE 10 MG TABLET PO (07:55)
[2020-08-12] MEDS: Nystatin Cream 15 GM TUBE 1 APPL TOPICAL (07:56)
--- NOTE | 2020-08-12 11:01 | PC.NURSE ---
Pt reports large formed bowel movement today.
[2020-08-12 11:27] LABS: Glucose, Whole Blood 190 mg/dL (60-115)
[2020-08-12 11:42] LABS: Glucose, Whole Blood 163 mg/dL (60-115)
--- NOTE | 2020-08-12 12:39 | PM.PSYDC ---
DS: Providers Provider Date of Service: 08/12/20 Date of admission: 07/22/20 20:23 Date of discharge: 08/12/20 Primary care physician: Unknown Physician Consults: 07/24/20 14:37 Consult to Hospitalist Routine Consulting Provider: Hospitalist Reason For Exam: Dierct admission. Needs H and P 07/28/20 13:56 Consult to Urology Routine Consulting Provider: Hugo Dickerson Reason for consultation: urinary urgency/ neg urine culture Has provider been notified: Yes 07/30/20 11:59 Consult to Gastroenterology Stat Consulting Provider: Jordy Alba Reason for consultation: NEED HELP WITH GI PROTOCAL DIARRHEA CONSTIPATION BLADDER PROLAPSE Has provider been notified: No 07/31/20 15:01 Consult to Wound Care Routine Consulting Provider: [facility] Care Management Reason for consultation: coccyx ulcer Has provider been notified: No 08/04/20 09:31 Consult to Hospitalist Routine Consulting Provider: Hospitalist Reason For Exam: HTN management, headaches with increase BP at AM 08/10/20 10:58 Consult to Hospitalist Routine Consulting Provider: Hospitalist Reason For Exam: Constipation, already seen by Onur but still consti Attending physician on discharge: Tyler Lam DS: Diagnosis Discharge Diagnosis (1) HTN (hypertension): Status: Acute (2) Major depressive disorder, recurrent severe without psychotic features: Status: Acute DS: Medications Discharge Medications Home Medications: Home Medications Medication Instructions Recorded Confirmed atenolol 50 mg PO DAILY 07/22/20 07/22/20 clonazepam 0.5 mg PO BID PRN 07/22/20 07/22/20 glimepiride 2 mg PO DAILY 07/22/20 07/22/20 glimepiride 4 mg PO DAILY 07/22/20 07/22/20 insulin glargine [Lantus U-100 14 unit SUBCUT BEDTIME 07/22/20 07/22/20 Insulin] lubiprostone [Amitiza] 8 mcg PO BID 07/22/20 07/22/20 oxycodone 15 mg PO Q4H 07/22/20 07/22/20 Discharge Plan Discharge Patient Disposition: Home, Self-Care Discharge Diagnosis: Major Depressive Disorder Benzodiazepine dependence Opioid dependence. Cluster B Personality traits Referrals: [facility] [Other] - 3-5 Days (Please call and inquire on assistance with housing options) [facility] [Other] - 3-5 Days (Please call wafer production worker Aida Coyle for assistance with housing resources. ) [facility] [Other] - 2 Weeks (Intake appointment scheduled for Sunday, August 23, 2020 @ 11 AM. Please have list of medications and income information for appointment. ) [facility] [Other] - 1 Week (Outpatient therapists telehealth appointment scheduled for August, @ 4:45 PM with Radha Hanks. If initial appointment scheduled for August 16 @ 4:45 pm is missed, all additional appointments will be canceled. Psychiatry telehealth appointment scheduled for Tuesday, September 08, 2020 @ 1:20 PM with Kimberly Dove. Follow up telehealth appointment scheduled for October 03, 2020 @ 10 AM.) [facility] [Other] - 1 Week ( Visiting RN will call on 08/16/20 to arrange a visit time. If they have a cancelation earlier they will call. Purpose is for support and education re medication and will be time limited. ) Physician,Unknown [Primary Care Provider] - 1 Week Discharge Medications: New Lantus U-100 Insulin 100 unit/mL Solution 14 unit subcut DAILY 14 Days Qty: 1.96 RF: 0 polyethylene glycol 3350 17 gram Powder In Packet 17 g PO BID PRN (Reason: Constipation) 14 Days Qty: 100 RF: 0 polyvinyl alcohol [Artificial Tears (polyvin alc)] 1.4 % Drops 2 drp ophthalmic (eye) Q4H PRN (Reason: Dry Eyes) 14 Days Qty: 30 RF: 0 glipizide 10 mg Tablet 10 mg PO DAILY@0730 14 Days Qty: 14 RF: 0 clonazepam 0.5 mg Tablet 0.5 mg PO TID PRN (Reason: Anxiety) 14 Days Qty: 42 RF: 0 melatonin 3 mg Tablet 6 mg PO BEDTIME 14 Days Qty: 28 RF: 0 oxycodone 15 mg Tablet 15 mg PO Q4H 14 Days Qty: 84 RF: 0 nortriptyline 10 mg Capsule 10 mg PO BEDTIME 14 Days Qty: 14 RF: 0 nystatin 100,000 unit/gram Cream 1 appl topical BID 14 Days Qty: 1 RF: 0 docusate sodium 100 mg Capsule 100 mg PO BID PRN (Reason: contipation) 14 Days Qty: 28 RF: 0 lisinopril 5 mg Tablet 5 mg PO DAILY@2000 14 Days Qty: 14 RF: 0 glipizide 5 mg Tablet 5 mg PO DAILY@1700 14 Days Qty: 14 RF: 0 Metamucil Fiber Singles 3.4 gram Powder In Packet 3.4 g PO BID 14 Days Qty: 100 RF: 0 Movantik 12.5 mg Tablet 12.5 mg PO DAILY 14 Days Qty: 14 RF: 0 atenolol 50 mg Tablet 50 mg PO DAILY 14 Days Qty: 14 RF: 0 Continued oxycodone 15 mg Tablet 15 mg PO Q4H RF: 0 clonazepam 0.5 mg Tablet 0.5 mg PO BID PRN (Reason: Anxiety) RF: 0 atenolol 50 mg Tablet 50 mg PO DAILY RF: 0 lubiprostone [Amitiza] 8 mcg Capsule 8 mcg PO BID 14 Days Qty: 28 RF: 0 Discontinued glimepiride 2 mg Tablet 2 mg PO DAILY RF: 0 glimepiride 4 mg Tablet 4 mg PO DAILY RF: 0 Lantus U-100 Insulin 100 unit/mL Cartridge 14 unit SUBCUT BEDTIME RF: 0 Discharge Orders: Discharge Order (Routine); Ordered 08/12/20 Ordered By: Tyler Lam Diet: advance to usual diet Activity on Discharge: As tolerated Stand Alone Forms: Patient Portal Discharge page, Community Support Care Plan Goals: Continue Care Goal Plans as an outpatient Health Concerns: Continue treatment with PCP and referral to [facility] Plan of Treatment: Psychotropic management by outpatient services. Psychoteherapy Assessment: Elderly female with MDD, ONDINA and yatrogenic opioid and benzodiazepine dependence with cluster B Traits, now safe in the community. Mental Status Exam Mental Status Exam Patient Appearance: Well Grooomed Patient Orientation: Person and Place Level of Consciousness: Awake Patient Behavior: Appropriate Mood Description: Calm (manipulative at times) Affect Description: Constricted Patient Cognition Impaired: No Ability to Follow Directions: Good Speech Pattern: Clear Memory Description: Intact Hallucinations: None Delusions: Not Present Thought Process: Goal Oriented Thought Content: positive for Intact and positive for Obsessional Thoughts Judgement: Fair Data Data Completed and Pending Completed studies during hospitalization [Text1]: 08/05/20 08/05/20 08/06/20 16:51 20:03 06:08 Sodium Potassium Chloride Carbon Dioxide Anion Gap BUN Creatinine Estim Creat Clear Calc Estimated GFR POC Glucose 175 H 211 H 127 H Random Glucose Calcium 08/06/20 08/06/20 08/06/20 07:47 11:41 16:33 Sodium Potassium Chloride Carbon Dioxide Anion Gap BUN Creatinine Estim Creat Clear Calc Estimated GFR POC Glucose 152 H 87 204 H Random Glucose Calcium 08/06/20 08/07/20 08/07/20 21:57 08:44 11:30 Sodium Potassium Chloride Carbon Dioxide Anion Gap BUN Creatinine Estim Creat Clear Calc Estimated GFR POC Glucose 134 H 165 H 64 Random Glucose Calcium 08/07/20 08/07/20 08/07/20 12:19 16:06 21:50 Sodium Potassium Chloride Carbon Dioxide Anion Gap BUN Creatinine Estim Creat Clear Calc Estimated GFR POC Glucose 80 160 H 163 H Random Glucose Calcium 08/08/20 08/08/20 08/08/20 06:58 11:23 16:25 Sodium Potassium Chloride Carbon Dioxide Anion Gap BUN Creatinine Estim Creat Clear Calc Estimated GFR POC Glucose 109 116 H 200 H Random Glucose Calcium 08/08/20 08/09/20 08/09/20 21:09 06:25 07:22 Sodium 139 Potassium 4.4 D Chloride 104 Carbon Dioxide 27 Anion Gap 12 BUN 20 H Creatinine 0.87 Estim Creat Clear Calc 48.1 Estimated GFR > 60 POC Glucose 174 H 123 H Random Glucose 125 H Calcium 9.4 08/09/20 08/09/20 08/09/20 11:27 16:22 19:50 Sodium Potassium Chloride Carbon Dioxide Anion Gap BUN Creatinine Estim Creat Clear Calc Estimated GFR POC Glucose 115 145 H 203 H Random Glucose Calcium 08/10/20 08/10/20 08/10/20 06:46 11:51 16:32 Sodium Potassium Chloride Carbon Dioxide Anion Gap BUN Creatinine Estim Creat Clear Calc Estimated GFR POC Glucose 134 H 159 H 256 H Random Glucose Calcium 08/10/20 08/11/20 08/11/20 20:38 08:17 16:02 Sodium Potassium Chloride Carbon Dioxide Anion Gap BUN Creatinine Estim Creat Clear Calc Estimated GFR POC Glucose 126 H 160 H 175 H Random Glucose Calcium 08/12/20 08/12/20 08:13 11:39 Sodium Potassium Chloride Carbon Dioxide Anion Gap BUN Creatinine Estim Creat Clear Calc Estimated GFR POC Glucose 190 H 163 H Random Glucose Calcium 07/27/20 21:50 Kidney - Clean Catch Midstream Urine Culture - Final No growth. Imaging Diagnostic Imaging Impressions KUB X-Ray 07/26/20 20:15 IMPRESSION: Moderate stool burden. No obstruction. KUB X-Ray 08/03/20 13:00 IMPRESSION: 1. Nonobstructive bowel gas pattern. 2. Mild to moderate colonic stool burden appears mildly decreased. DS: Summary Hospital Course Hospital Course: The patient was initially admitted for depressive symptoms elicited by depressed mood, anhedonia, lack of energy, feeling of hopelesness and worthlessnes and suicidal thoughts. The patient historically has been taking only benzodiazepines for more than 40 years with opioids without antidepressants due to alleged side effects. On admission, the psychiatrist on admission started her on Remeron 3.75 mg but she didn't want to continue since she had lost weight 40 lbs and she didn't want to gain them back, so we changed to Lexapro in a slow titration but she complained of headaches and constipation. So we changed later to Cymbalta but again she complained of unrelated side effects. During the course of the admission, the patient was always somatically preoocupied and more interested on keeping her benzodiazepines and opioids. Finally, after several trials, she started on Pamelor 10 mg with no side effects. She was always anxious and she showed attention seeking behavior with a sense of entitlement, most likely due to cluster B traits. We programed the discharge but the day of the discharge she complained of UTI symptoms and later, she complained that her housing was not the best but finally, since there were no criteria for inpatient level of care, she was discharged with several ancillary services (she refused VNA services). There were no safety concerns at the moment of the discharge. Time spent discussing smoking cessation with patient: 3 to 10 minutes Status at Discharge Cognitive/behavioral status at discharge: at baseline Functional status at discharge: independent ambulation Overall status at discharge: patient is back to baseline Time Spent with Patient Time attestation: Total time spent providing and/or coordinating discharge services: Time spent: Less than 30 minutes
--- NOTE | 2020-08-12 12:45 | PC.NURSE ---
Pt reports she does not feel ready for discharge at this time due to bowel incontinence and urinary incontinence and frequency issues. Explained to the pt that she is medically cleared for the psychiatric issues she was admitted to the unit for, pt stated It's not fair, I'm here, they should take care of everything . Pt spoke with the social services aide and the provider and reports she is not happy , but understands she is to be discharged today. Pt reports she feels safe, and will feel safe at home.
== END 2020-08-12 14:20 | disposition home or self-care (01) | DRG 885 ==
PROVIDERS: Family Medicine; Psychiatry & Neurology Psychiatry; Admitting Provider Psychiatry & Neurology Psychiatry; Visit Provider Psychiatry & Neurology Psychiatry
DX: F32.2 Major depressive disorder, single episode, severe without psychotic features (principal); N39.0 Urinary tract infection, site not specified; F11.20 Opioid dependence, uncomplicated; F13.20 Sedative, hypnotic or anxiolytic dependence, uncomplicated; F41.9 Anxiety disorder, unspecified; R23.9 Unspecified skin changes; K59.01 Slow transit constipation; E11.8 Type 2 diabetes mellitus with unspecified complications; I87.2 Venous insufficiency (chronic) (peripheral); Z88.0 Allergy status to penicillin; Z88.2 Allergy status to sulfonamides; Z79.4 Long term (current) use of insulin; Z79.899 Other long term (current) drug therapy
CPT/HCPCS: 36415; 74018; 80048; 81001; 82947; 84443; 85025; 87086; 88112